=== PATIENT | male | born 1975 | race Caucasian/White ===

== ENCOUNTER 2016-10-02 21:40 | Inpatient (IN) | payer MEDICARE ==
[~2016-10-02] VITALS: Ht 175.3 cm; Wt 90.0 kg
[2016-10-02 21:46] VITALS: PULSE 77; RESP 18; TEMP 98.8; O2SAT 98
[2016-10-02 21:51] VITALS: BP 118/65; PULSE 78; RESP 18; TEMP 98.7; O2SAT 97
[2016-10-02] MEDS ORDERED: LOSA100T PO (22:00)
--- NOTE | 2016-10-02 22:26 | PD ---
HPI Chief Complaint: Syncope/Near-Syncope Time Seen by Provider: 22:07 Travel History International Travel<30 days: No Contact w/Intl Traveler<30days: No Traveled to known affect area: No History of Present Illness HPI 41-year-old male here for evaluation of posterior head pain, neck pain, left elbow pain after syncopal episode. Patient apparently returned home from grocery shopping with his when he sat down on his coffee table. He then began to see black spots in his vision and became dizzy, and the next thing he knew he was being woken up on the floor. This was witnessed by his who states that when he woke up he had some slurred speech which has since resolved. Patient has history of bicuspid aortic valve with aortic stenosis and aortic regurgitation which according to the patient was mild in March 2016 on echo. He apparently has had 3 other episodes of passing out this month. He is not complaining of posterior head pain, neck, back pain, and left elbow pain. Pain is constant, moderate, worse with movements. No chest pain or dyspnea. No known history of CAD. No history of DVT or PE. No dyspnea. No abdominal pain. PFSH Past Medical History Cardiovascular Problems: Yes (BICUSPID AORTIC VALVE REGURG) Hypertension: Yes Medical other: Yes (RIGHT HAND TREMMOR PT STATES ) Tetanus Vaccination: < 5 Years Influenza Vaccination: No Past Surgical History Other Surgery: Yes (CARPAL TUNNEL RIGHT WRIST, LIPOMA REMOVED) Social History Alcohol Use: No Tobacco Use: No Substance Use: No Allergies-Medications (Allergen,Severity, Reaction): Coded Allergies: Latex (Verified Allergy, Intermediate, 10/02/16) Reported Meds & Prescriptions Reported Meds & Active Scripts Active Reported Losartan (Losartan Potassium) 100 Mg Tab 100 Mg PO DAILY Review of Systems Except as stated in HPI: all other systems reviewed are Neg Physical Exam Narrative GENERAL: Well-developed, well-nourished, awake, alert, GCS 15, no acute distress. Resting tremor in RUE which the patient reports is intermittent for him. SKIN: Focused skin assessment warm/dry. No lacerations, abrasions, or ecchymosis. HEAD: Atraumatic. Normocephalic. EYES: Pupils equal and round. No scleral icterus. No injection or drainage. ENT: Mucous membranes pink and moist. NECK: Trachea midline. No JVD. In cervical collar. There is midline cervical spine tenderness without step-off. CARDIOVASCULAR: Regular rate and rhythm. Distal pulses brisk and equal bilaterally. RESPIRATORY: No accessory muscle use. Clear to auscultation. Breath sounds equal bilaterally. GASTROINTESTINAL: Abdomen soft, non-tender, nondistended. MUSCULOSKELETAL: No obvious deformities. No clubbing. No cyanosis. No edema. Midline thoracic spine and lumbar spine tenderness without step-off. Left elbow with posterior tenderness with mild edema without obvious bony deformity. NEUROLOGICAL: Awake and alert. No obvious cranial nerve deficits. Motor grossly within normal limits. Normal speech. No focal deficits. Normal strength in all four extremities. PSYCHIATRIC: Appropriate mood and affect; insight and judgment normal. Data Data Last Documented VS Vital Signs Date Time Temp Pulse Resp B/P Pulse Ox O2 Delivery O2 Flow Rate FiO2 10/02/16 23:01 100 Room Air 10/02/16 21:51 20 18 10/02/16 21:51 98.7 118/65 Orders Complete Blood Count With Diff (10/02/16 22:17) Comprehensive Metabolic Panel (10/02/16 22:17) Magnesium (Mg) (10/02/16 22:17) Ckmb (Isoenzyme) Profile (10/02/16 22:17) Troponin I (10/02/16 22:17) Act Partial Throm Time (Ptt) (10/02/16 22:17) Prothrombin Time / Inr (Pt) (10/02/16 22:17) Urinalysis - C+S If Indicated (10/02/16 22:17) Chest, Single Ap (10/02/16 22:17) Ct Brain W/O Iv Contrast(Rout) (10/02/16 22:17) Ct Cerv Spine W/O Contrast (10/02/16 22:17) Ecg Monitoring (10/02/16 22:17) Iv Access Insert/Monitor (10/02/16 22:17) Oximetry (10/02/16 22:17) Sodium Chloride 0.9% Flush (Ns Flush) (10/02/16 22:30) Ct Thor Spine W/O Contrast (10/02/16 ) Ct Lumb Spine W/O Contrast (10/02/16 ) Elbow, Complete (4 Vws) (10/02/16 ) CKMB (10/02/16 23:11) CKMB% (10/02/16 23:11) Acetamin-Hydrocod 325-5 Mg (Burson 5-325 (10/03/16 00:00) Metoclopramide Inj (Reglan Inj) (10/03/16 00:00) Sodium Chlor 0.9% 1000 Ml Inj (Ns 1000 M (10/03/16 00:00) Place In Observation (10/02/16 ) Vital Signs (Adult) Q4H (10/02/16 23:56) Neuro Checks Q4H (10/02/16 23:56) Activity Oob With Assistance (10/02/16 23:56) Care Connector / Telemetry .CONTINUOUS (10/02/16 23:56) Intake + Output SURINDER.QSHIFT (10/02/16 23:56) Diet Regular Basic (10/03/16 Breakfast) Sodium Chlor 0.9% 1000 Ml Inj (Ns 1000 M (10/02/16 23:56) Sodium Chloride 0.9% Flush (Ns Flush) (10/03/16 00:00) Sodium Chloride 0.9% Flush (Ns Flush) (10/03/16 09:00) Acetaminophen (Tylenol) (10/03/16 00:00) Ondansetron Inj (Zofran Inj) (10/03/16 00:00) Comprehensive Metabolic Panel (10/03/16 06:00) Complete Blood Count With Diff (10/03/16 06:00) Creatine Kinase (Cpk) (10/02/16 23:56) Creatine Kinase (Cpk) (10/03/16 05:56) Troponin I (10/02/16 23:56) Troponin I (10/03/16 05:56) Resp Oxygen Iglesia C Titrat 1-4 L (10/02/16 ) Pt Request For Service (10/02/16 23:56) Case Management Consult (10/02/16 23:56) Enoxaparin Inj (Lovenox Inj) (10/03/16 00:00) Scd Bilateral/Knee High SURINDER.BID (10/02/16 23:56) Tuan Bilateral/Knee High SURINDER.QSHIFT (10/02/16 23:56) Docusate Sodium-Senna (Yazmin-Colace) (10/03/16 09:00) Magnesium Hydroxide Liq (Milk Of Magnesi (10/03/16 00:00) Sennosides (Senokot) (10/03/16 00:00) Bisacodyl Supp (Dulcolax Supp) (10/03/16 00:00) Lactulose Liq (Lactulose Liq) (10/03/16 00:00) Acetamin-Hydrocod 325-5 Mg (Burson 5-325 (10/03/16 00:00) Potassium Chloride (Kcl) (10/03/16 00:00) Magnesium (Mg) (10/02/16 23:56) Magnesium Oxide (Mag-Ox) (10/03/16 00:00) Echo 2d Comp With Doppler (10/03/16 ) Us Carotid Arteries Comp Bilat (10/03/16 ) Holter Monitor Recording (10/03/16 ) Labs Laboratory Tests Test 10/02/16 10/02/16 23:11 23:40 White Blood Count 9.3 TH/MM3 Red Blood Count 4.64 MIL/MM3 Hemoglobin 13.5 GM/DL Hematocrit 39.6 % Mean Corpuscular Volume 85.4 FL Mean Corpuscular Hemoglobin 29.1 PG Mean Corpuscular Hemoglobin 34.1 % Concent Red Cell Distribution Width 12.6 % Platelet Count 229 TH/MM3 Mean Platelet Volume 9.5 FL Neutrophils (%) (Auto) 64.1 % Lymphocytes (%) (Auto) 27.1 % Monocytes (%) (Auto) 6.0 % Eosinophils (%) (Auto) 1.9 % Basophils (%) (Auto) 0.9 % Neutrophils # (Auto) 6.0 TH/MM3 Lymphocytes # (Auto) 2.5 TH/MM3 Monocytes # (Auto) 0.6 TH/MM3 Eosinophils # (Auto) 0.2 TH/MM3 Basophils # (Auto) 0.1 TH/MM3 CBC Comment DIFF FINAL Differential Comment Prothrombin Time 10.8 SEC Prothromb Time International 1.0 RATIO Ratio Activated Partial 26.4 SEC Thromboplast Time Sodium Level 140 MEQ/L Potassium Level 3.4 MEQ/L Chloride Level 106 MEQ/L Carbon Dioxide Level 24.6 MEQ/L Anion Gap 9 MEQ/L Blood Urea Nitrogen 16 MG/DL Creatinine 1.32 MG/DL Estimat Glomerular Filtration 59 ML/MIN Rate Random Glucose 92 MG/DL Calcium Level 9.2 MG/DL Magnesium Level 2.0 MG/DL Total Bilirubin 0.8 MG/DL Aspartate Amino Transf 19 U/L (AST/SGOT) Alanine Aminotransferase 35 U/L (ALT/SGPT) Alkaline Phosphatase 62 U/L Total Creatine Kinase 172 U/L Creatine Kinase MB 1.3 NG/ML Troponin I 0.05 NG/ML Total Protein 7.0 GM/DL Albumin 4.0 GM/DL Urine Color YELLOW Urine Turbidity CLEAR Urine pH 5.5 Urine Specific Barrow 1.012 Urine Protein NEG mg/dL Urine Glucose (UA) NEG mg/dL Urine Ketones NEG mg/dL Urine Occult Blood NEG Urine Nitrite NEG Urine Bilirubin NEG Urine Urobilinogen LESS THAN 2.0 MG/DL Urine Leukocyte Esterase NEG Urine RBC LESS THAN 1 /hpf Urine WBC 1 /hpf Urine Hyaline Casts 1 /lpf Urine Mucus FEW /lpf Microscopic Urinalysis Comment CULT NOT INDICATED MDM Medical Decision Making Medical Screen Exam Complete: Yes Emergency Medical Condition: Yes Interpretation(s) EKG: Sinus, rate 77, leftward axis, normal intervals, no acute ischemic abnormality. Differential Diagnosis Syncope, dysrhythmia, intracranial trauma, vertebral injury, left elbow fracture versus dislocation versus contusion, metabolic abnormality, anemia, aortic stenosis Narrative Course Initial vital signs show heart rate 78, blood pressure 118/65, pulse ox 97% on room air, oral temp of 98.7F. When the patient arrived to the emergency department, the patient's thought that the patient needed to receive TPA. I discussed with the patient and the patient's indications for this medication. The patient is not displaying any signs of stroke at time of my assessment. With this and with head trauma, he is a very poor candidate for TPA. CBC is unremarkable. CMP Cardiac enzymes CT head: CONCLUSION: 1. No acute findings in the brain. 2. Rounded opacity in the superior right maxillary sinus could be related to sinus disease, however since this is adjacent to the infraorbital region, and correlation clinical history to see whether the patient is at risk of an orbital floor fracture. If so, then further assessment with CT orbits to include coronal images may be helpful. Patient has no facial pain and has no tenderness on exam. Extraocular movements are intact. CT cervical spine: CONCLUSION: Negative CT cervical spine. CT thoracic spine: CONCLUSION: Slight degenerative change without any significant compromise to the thecal sac or the exiting nerve roots. CT lumbar spine: CONCLUSION: Slight degenerative changes and bulging discs without any significant compromise to the thecal sac or the exiting nerve roots. Left elbow: No evidence of recent bony injury. Chest x-ray: The lungs are clear. Patient and the patient's were made aware of all findings. He has reportedly had 3 other syncopal episodes this month. Given history of bicuspid aortic valve with mild stenosis and regurgitation, as well as frequent syncopal episodes, the patient will be admitted for overnight observation for further syncope workup. Case discussed with hospitalist Dr. Grimaldo who will admit the patient to her service. Diagnosis Primary Impression: Syncope Qualified Code: R55 - Syncope, unspecified syncope type Admitting Information Admitting Physician Requests: Observation Montez Robledo MD Oct 02, 2016 22:26
[2016-10-02] MEDS ORDERED: SODIUM CHLORIDE 0.9% FLUSH 10 ML FLUSH IVF PRN (22:30)
--- NOTE | 2016-10-02 22:56 | RADRPT ---
EXAM DATE/TIME: 10/02/2016 22:30 [facility] COMPARISON: No previous studies available for comparison. INDICATIONS : Chest pain. MEDICAL HISTORY : None. SURGICAL HISTORY : None. ENCOUNTER: Initial ACUITY: 1 day PAIN SCORE: 0/10 LOCATION: Bilateral chest FINDINGS: A single view of the chest demonstrates the lungs to be symmetrically aerated without evidence of mas s, infiltrate or effusion. The cardiomediastinal contours are unremarkable. Osseous structures are intact. CONCLUSION: The lungs are clear. González Oden MD on October 02, 2016 at 22:53 Board Certified Radiologist. This report was verified electronically.
--- NOTE | 2016-10-02 22:57 | RADRPT ---
EXAM DATE/TIME: 10/02/2016 22:37 [facility] COMPARISON: No previous studies available for comparison. INDICATIONS : Left elbow pain from fall. MEDICAL HISTORY : None. SURGICAL HISTORY : None. ENCOUNTER: Initial ACUITY: 1 day PAIN SCORE: 0/10 LOCATION: Left elbow FINDINGS: Multiple view examination of the left elbow demonstrates no soft tissue swelling, joint effusion, or fracture. The osseous structures are in normal alignment. Bony mineralization is normal. CONCLUSION: No evidence of recent bony injury. González Oden MD on October 02, 2016 at 22:54 Board Certified Radiologist. This report was verified electronically.
--- NOTE | 2016-10-02 23:00 | RADRPT ---
EXAM DATE/TIME: 10/02/2016 22:47 [facility] COMPARISON: No previous studies available for comparison. INDICATIONS : Trauma, syncopal episode and fall. RADIATION DOSE: 56.35 CTDIvol (mGy) MEDICAL HISTORY : Hypertension. Leaky heart valve. SURGICAL HISTORY : None. ENCOUNTER: Initial ACUITY: 1 day PAIN SCALE: 5/10 LOCATION: occipital TECHNIQUE: Multiple contiguous axial images were obtained of the head. Using automated exposure control and adj ustment of the mA and/or kV according to patient size, radiation dose was kept as low as reasonably a chievable to obtain optimal diagnostic quality images. FINDINGS: CEREBRUM: The ventricles are normal for age. No evidence of midline shift, mass lesion, hemorrhage or acute in farction. No extra-axial fluid collections are seen. POSTERIOR FOSSA: The cerebellum and brainstem are intact. The 4th ventricle is midline. The cerebellopontine angle i s unremarkable. EXTRACRANIAL: There is a rounded soft tissue density measuring 1 cm in the superior right maxillary sinus. There i s also mild mucosal thickening inferior right maxillary sinus. SKULL: The calvaria is intact. No evidence of skull fracture. CONCLUSION: 1. No acute findings in the brain. 2. Rounded opacity in the superior right maxillary sinus could be related to sinus disease, however s lorenzo this is adjacent to the infraorbital region, and correlation clinical history to see whether the patient is at risk of an orbital floor fracture. If so, then further assessment with CT orbits to i nclude coronal images may be helpful. González Oden MD on October 02, 2016 at 22:55 Board Certified Radiologist. This report was verified electronically.
[2016-10-02 23:01] VITALS: O2SAT 100
--- NOTE | 2016-10-02 23:08 | RADRPT ---
EXAM DATE/TIME: 10/02/2016 22:47 [facility] COMPARISON: No previous studies available for comparison. INDICATIONS : Trauma, syncopal episode and fall. RADIATION DOSE: 32.45 CTDIvol (mGy) MEDICAL HISTORY : Hypertension. Leaky heart valve. SURGICAL HISTORY : None. ENCOUNTER: Initial ACUITY: 1 day PAIN SCALE: 2/10 LOCATION: neck TECHNIQUE: Volumetric scanning of the cervical spine was performed. Multiplanar reconstructions in the sagittal, coronal and oblique axial planes were performed. Using automated exposure control and adjustment o f the mA and/or kV according to patient size, radiation dose was kept as low as reasonably achievable to obtain optimal diagnostic quality images. FINDINGS: There is normal alignment of the vertebral bodies of the cervical spine preservation of vertebral bod y height. The atlantoaxial articulation is intact. The posterior elements are normal alignment with out evidence of locked or perched facets. The spinous processes are intact. C2-C3: No fracture seen. The bony neural foramen are patent. C3-C4: No fracture seen. The bony neural foramen are patent. C4-C5: No fracture seen. The bony neural foramen are patent. C5-C6: No fracture seen. The bony neural foramen are patent. C6-C7: No fracture seen. The bony neural foramen are patent. C7-T1: No fracture seen. The bony neural foramen are patent. CONCLUSION: Negative CT cervical spine. González Oden MD on October 02, 2016 at 23:04 Board Certified Radiologist. This report was verified electronically.
[2016-10-02 23:20] LABS: BASOPHIL # 0.1 TH/MM3 (0-0.2); BASOPHIL % 0.9 % (0.0-2.0); EOSINOPHIL # 0.2 TH/MM3 (0-0.4); EOSINOPHIL % 1.9 % (0.0-4.0); HEMATOCRIT 39.6 % (39.0-51.0); HEMO FLAGS DIFF FINAL; LYMPH % 27.1 % (9.0-44.0); LYMPHOCYTE # 2.5 TH/MM3 (1.0-4.8); MEAN CELL VOLUME 85.4 FL (80.0-100.0); MEAN CORPUSCULAR HEMOGLOBIN 29.1 PG (27.0-34.0); MEAN CORPUSCULAR HGB CONC 34.1 % (32.0-36.0); NEUT % 64.1 % (16.0-70.0); PLATELET COUNT 229 TH/MM3 (150-450); RED BLOOD COUNT 4.64 MIL/MM3 (4.50-5.90); RED CELL DISTRIBUTION WIDTH 12.6 % (11.6-17.2); WHITE BLOOD COUNT 9.3 TH/MM3 (4.0-11.0)
--- NOTE | 2016-10-02 23:29 | RADRPT ---
EXAM DATE/TIME: 10/02/2016 22:54 [facility] COMPARISON: CT CERVICAL SPINE W/O CONTRAST, October 02, 2016, 22:47. INDICATIONS : Trauma, syncopal episode and fall. RADIATION DOSE: 24.07 CTDIvol (mGy) ; Combined studies - Thoracic Spine/Lumbar Spine MEDICAL HISTORY : Hypertension. Leaky heart valve. SURGICAL HISTORY : None. ENCOUNTER: Initial ACUITY: 1 day PAIN SCALE: 2/10 LOCATION: lumbar TECHNIQUE: Volumetric scanning of the lumbar spine was performed. Multiplanar reconstructions in the sagittal, coronal and oblique axial planes were performed. Using automated exposure control and adjustment of the mA and/or kV according to patient size, radiation dose was kept as low as reasonably achievable t o obtain optimal diagnostic quality images. FINDINGS: No significant compression deformities, spondylolysis, or spondylolisthesis is seen. The discs spaces are well maintained. L1-L2: No appreciable compromise to the thecal sac, or the exiting nerve roots is seen. The neural foramina and lateral recesses are patent bilaterally. L2-L3: No appreciable compromise to the thecal sac, or the exiting nerve roots is seen. The neural foramina and lateral recesses are patent bilaterally L3-L4: No appreciable compromise to the thecal sac, or the exiting nerve roots is seen. The neural foramina and lateral recesses are patent bilaterally L4-L5: No appreciable compromise to the thecal sac, or the exiting nerve roots is seen. The neura l foramina and lateral recesses are patent bilaterally. Slight bulging disc is present centrally. No significant compromise to the thecal sac or the exiting nerve roots are seen. L5-S1: Slight bulging disc and hypertrophic changes are seen with indentation on the thecal sac an d no significant compromise to the thecal sac or the exiting nerve roots. CONCLUSION: Slight degenerative changes and bulging discs without any significant compromise to t he thecal sac or the exiting nerve roots. Matthew Smith MD on October 02, 2016 at 23:23 Board Certified Radiologist. This report was verified electronically.
--- NOTE | 2016-10-02 23:33 | RADRPT ---
EXAM DATE/TIME: 10/02/2016 22:52 [facility] COMPARISON: No previous studies available for comparison. INDICATIONS : Trauma, syncopal episode and fall. RADIATION DOSE: 24.07 CTDIvol (mGy) ; Combined studies - Thoracic Spine/Lumbar Spine MEDICAL HISTORY : Hypertension. Leaky heart valve. SURGICAL HISTORY : None. ENCOUNTER: Initial ACUITY: 1 day PAIN SCALE: 2/10 LOCATION: thoracic TECHNIQUE: Volumetric scanning of the thoracic spine was performed. Multiplanar reconstructions in the sagittal , coronal and oblique axial planes were performed. Using automated exposure control and adjustment o f the mA and/or kV according to patient size, radiation dose was kept as low as reasonably achievable to obtain optimal diagnostic quality images. FINDINGS: No significant compression deformities are seen. Disc spaces are grossly intact and not significantl y narrowed. Slight degenerative changes are seen within the disc space and facets mainly in the lower thoracic spine worse at T10-11 and T11-12. T1-T2: No appreciable compromise to the thecal sac, spinal cord, or the exiting nerve roots are seen. The neural foramina are grossly patent bilaterally. T2-T3: No appreciable compromise to the thecal sac, spinal cord, or the exiting nerve roots are seen. The neural foramina are grossly patent bilaterally. T3-T4: No appreciable compromise to the thecal sac, spinal cord, or the exiting nerve roots are seen. The neural foramina are grossly patent bilaterally. T4-T5: No appreciable compromise to the thecal sac, spinal cord, or the exiting nerve roots are seen. The neural foramina are grossly patent bilaterally. T5-T6: No appreciable compromise to the thecal sac, spinal cord, or the exiting nerve roots are seen. The neural foramina are grossly patent bilaterally. T6-T7: No appreciable compromise to the thecal sac, spinal cord, or the exiting nerve roots are seen. The neural foramina are grossly patent bilaterally. T7-T8: No appreciable compromise to the thecal sac, spinal cord, or the exiting nerve roots are seen. The neural foramina are grossly patent bilaterally. T8-T9: No appreciable compromise to the thecal sac, spinal cord, or the exiting nerve roots are seen. The neural foramina are grossly patent bilaterally. T9-T10: No appreciable compromise to the thecal sac, spinal cord, or the exiting nerve roots are see n. The neural foramina are grossly patent bilaterally. T10-T11: No appreciable compromise to the thecal sac, spinal cord, or the exiting nerve roots are se en. The neural foramina are grossly patent bilaterally. T11-T12: No appreciable compromise to the thecal sac, spinal cord, or the exiting nerve roots are se en. The neural foramina are grossly patent bilaterally. T12-L1: No appreciable compromise to the thecal sac, spinal cord, or the exiting nerve roots are s een. The neural foramina are grossly patent bilaterally. CONCLUSION: Slight degenerative change without any significant compromise to the thecal sac or th e exiting nerve roots. Matthew Smith MD on October 02, 2016 at 23:28 Board Certified Radiologist. This report was verified electronically.
[2016-10-02 23:41] LABS: APTT (PATIENT) 26.4 SEC (24.3-30.1); PROTHROMBIN TIME - PATIENT 10.8 SEC (9.8-11.6)
[2016-10-02 23:45] LABS: ALT (GPT) 35 U/L (12-78); ANION GAP 9 MEQ/L (5-15); AST (GOT) 19 U/L (15-37); BICARBONATE 24.6 MEQ/L (21.0-32.0); BLOOD UREA NITROGEN 16 MG/DL (7-18); CHLORIDE 106 MEQ/L (98-107); GLOMERULAR FILTRATION RATE 59 ML/MIN (>89); POTASSIUM 3.4 MEQ/L (3.5-5.1); SODIUM (NA) 140 MEQ/L (136-145)
[2016-10-02 23:50] LABS: ALKALINE PHOSPHATASE 62 U/L (45-117); CREATINE KINASE 172 U/L (39-308); TOTAL BILIRUBIN ADULT 0.8 MG/DL (0.2-1.0)
[2016-10-02 23:58] LABS: BLOOD, URINE NEG (NEG); COMMENT (UR) CULT NOT INDICATED; CULTURE IF INDICATED CULT NOT INDICATED; GLUCOSE,URINE NEG (NEG); HYALINE CAST, URINE 1 /lpf (RARE); KETONE, URINE NEG (NEG); MUCUS URINE FEW /lpf (OCC); NITRITE,URINE NEG (NEG); PH, URINE 5.5 (5.0-8.5); URINE COLOR YELLOW (YELLW/STRAW)
[2016-10-03] VITALS (10 sets, daily range): BP systolic 112–134; BP diastolic 68–88; PULSE 60–79; RESP 18–22; TEMP 97.6–98.5; O2SAT 96–98
[2016-10-03] MEDS ORDERED: METOCLOPRAMIDE HCL 10 MG/2 ML VIAL IV PUSH ONE
[2016-10-03] MEDS ORDERED: MAGNESIUM HYDROXIDE SUSP 30 ML CUP PO PRN
[2016-10-03] MEDS ORDERED: BISACODYL 10 MG SUPP RECTAL PRN
[2016-10-03] MEDS ORDERED: LACTULOSE SYRUP 20 GM/30 ML CUP PO PRN
[2016-10-03] MEDS ORDERED: ENOXAPARIN SODIUM 40 MG/0.4 ML SYRINGE SQ SCH
[2016-10-03] MEDS ORDERED: ONDANSETRON HCL 4 MG/2 ML VIAL IVP PRN
[2016-10-03] MEDS ORDERED: SODIUM CHLORIDE 0.9% FLUSH 10 ML FLUSH IV FLUSH PRN
[2016-10-03] MEDS ORDERED: SODIUM CHLOR 0.9% 1000 ML INJ 1,000 ML IV ONE
[2016-10-03] MEDS ORDERED: ACETAMINOPHEN 325 MG TAB PO PRN
[2016-10-03] MEDS ORDERED: MAGNESIUM OXIDE 400 MG TAB PO ONE
[2016-10-03] MEDS ORDERED: POTASSIUM CHLORIDE 10 MEQ CONTROLLED RELEASE TAB PO ONE
[2016-10-03] MEDS ORDERED: SENNOSIDES 8.6 MG TAB PO PRN
[2016-10-03 00:02] LABS: CKMB 1.3 NG/ML (0.5-3.6)
[2016-10-03] MEDS: SODIUM CHLOR 0.9% 1000 ML INJ 1,000 ML IV SCH ×3 (00:39→19:37)
--- NOTE | 2016-10-03 01:03 | RADRPT ---
EXAM DATE/TIME: 10/03/2016 00:39 [facility] COMPARISON: No previous studies available for comparison. INDICATIONS : Syncope. MEDICAL HISTORY : Hypertension. Bicuspid aortic valve regurg. Right hand tremmor. SURGICAL HISTORY : Right carpel tunnel release. Lipoma removed. ENCOUNTER: Initial ACUITY: > 1 year PAIN SCORE: 0/10 LOCATION: Bilateral neck PEAK SYSTOLIC VELOCITIES (cm/sec): ICA/CCA RATIO: Right: 0.8 Left: 0.8 ICA: Right: 60 Left: 73 CCA: Right: 75 Left: 87 ECA: Right: 80 Left: 76 VERTEBRAL: Right: 44 antegrade Left: 48 antegrade Elevated flow velocities and ICA/CCA ratios have been found to correlate with increased degrees of vessel stenosis, calculated as percentage of diameter relative to a normal segment of distal ICA/CCA FINDINGS: RIGHT CAROTID: No significant stenosis is visualized. The waveforms are within normal limits. LEFT CAROTID: No significant stenosis is visualized. The waveforms are within normal limits. VERTEBRAL ARTERIES: Antegrade flow is seen in both vertebral arteries. MISCELLANEOUS: None. CONCLUSION: Normal examination. Matthew Smith MD on October 03, 2016 at 1:01 Board Certified Radiologist. This report was verified electronically.
[2016-10-03] MEDS: ACETAMINOPHEN/HYDROcodone 325 MG/5 MG TAB PO PRN ×3 (05:19→18:03)
[2016-10-03 05:46] LABS: AUTOMATED NEUTROPHIL # 3.4 TH/MM3 (1.8-7.7); BASOPHIL # 0.1 TH/MM3 (0-0.2); BASOPHIL % 1.1 % (0.0-2.0); EOSINOPHIL # 0.2 TH/MM3 (0-0.4); EOSINOPHIL % 3.3 % (0.0-4.0); HEMO FLAGS DIFF FINAL; LYMPHOCYTE # 2.3 TH/MM3 (1.0-4.8); MEAN CELL VOLUME 85.3 FL (80.0-100.0); MEAN CORPUSCULAR HEMOGLOBIN 29.5 PG (27.0-34.0); MEAN CORPUSCULAR HGB CONC 34.5 % (32.0-36.0); NEUT % 52.6 % (16.0-70.0); PLATELET COUNT 215 TH/MM3 (150-450); RED BLOOD COUNT 4.22 MIL/MM3 (4.50-5.90); RED CELL DISTRIBUTION WIDTH 12.5 % (11.6-17.2); WHITE BLOOD COUNT 6.5 TH/MM3 (4.0-11.0)
--- NOTE | 2016-10-03 06:15 | HHI.HP ---
[facility] Bryant Kimbrough MD Admission Diagnosis syncope Diagnoses: Chief Complaint: dizziness Travel History International Travel<30 Days: No Contact w/Intl Traveler <30 Da: No Traveled to Known Affected Are: No History of Present Illness The patient is a 41-year-old male here for evaluation of posterior head pain, neck pain, left elbow pain after syncopal episode. Patient apparently returned home from grocery shopping with his when he sat down on his coffee table. He then began to see black spots in his vision and became dizzy, and the next thing he knew he was being woken up on the floor. This was witnessed by his who states that when he woke up he had some slurred speech which has since resolved. Patient has a history of bicuspid aortic valve with aortic stenosis and aortic regurgitation which according to the patient was mild in March 2016 on ECHO. He apparently has had 3 other episodes of passing out this month. He is not complaining of posterior head pain, neck, back pain, and left elbow pain. Pain is constant, moderate, worse with movements. No chest pain. Patient reports sob especially getting worse over the past month , associated fatigue for the past month. He also says he feels palpitations at times. No known history of CAD. No history of DVT or PE. No abdominal pain. Review of Systems Except as stated in HPI: all other systems reviewed are Neg Past Family Social History Past Medical History Bicuspid aortic valve with aortic stenosis and aortic regurgitation. Right hand tremor. Past Surgical History Carpal tunel right wrist surgery Lipoma removal Reported Medications Last Impressions Carotid Artery Ultrasound 10/03/16 0000 Signed Impressions: Service Date/Time: Monday, October 03, 2016 00:39 - CONCLUSION: Normal examination. Matthew Smith MD Head CT 10/02/16 2217 Signed Impressions: Service Date/Time: Sunday, October 02, 2016 22:47 - CONCLUSION: 1. No acute findings in the brain. 2. Rounded opacity in the superior right maxillary sinus could be related to sinus disease, however since this is adjacent to the infraorbital region, and correlation clinical history to see whether the patient is at risk of an orbital floor fracture. If so, then further assessment with CT orbits to include coronal images may be helpful. González Oden MD Chest X-Ray 10/02/162216 Signed Impressions: Service Date/Time: Sunday, October 02, 2016 22:30 - CONCLUSION: The lungs are clear. González Oden MD Cervical Spine CT 10/02/162216 Signed Impressions: Service Date/Time: Sunday, October 02, 2016 22:47 - CONCLUSION: Negative CT cervical spine. González Oden MD Thoracic Spine CT 10/02/16 0000 Signed Impressions: Service Date/Time: Sunday, October 02, 2016 22:52 - CONCLUSION: Slight degenerative change without any significant compromise to the thecal sac or the exiting nerve roots. Matthew Smith MD Lumbar Spine CT 10/02/16 0000 Signed Impressions: Service Date/Time: Sunday, October 02, 2016 22:54 - CONCLUSION: Slight degenerative changes and bulging discs without any significant compromise to the thecal sac or the exiting nerve roots. Matthew Smith MD Elbow X-Ray 10/02/16 0000 Signed Impressions: Service Date/Time: Sunday, October 02, 2016 22:37 - CONCLUSION: No evidence of recent bony injury. González Oden MD Allergies: Coded Allergies: Latex (Verified Allergy, Intermediate, 10/02/16) Family History Father with DM, cardiac problems Uncles from father side with CAD, heart disease Grandmother CHF Social History Denies EtOH use, tobacco use or illicit drug use Physical Exam Vital Signs Vital Signs Date Time Temp Pulse Resp B/P Pulse Ox O2 Delivery O2 Flow Rate FiO2 10/03/16 03:12 98.5 65 22 112/68 98 10/03/16 02:39 60 10/03/16 00:06 97 21 10/02/16 23:01 100 Room Air 10/02/16 21:51 20 18 97 Room Air 10/02/16 21:51 98.7 78 18 118/65 97 Room Air 10/02/16 21:46 98.8 77 18 98 Physical Exam GENERAL: This is a well-nourished, well-developed patient, in no apparent distress. SKIN: No rashes, ecchymoses or lesions. Cool and dry. HEAD: Atraumatic. Normocephalic. No temporal or scalp tenderness. EYES: Pupils equal round and reactive. Extraocular motions intact. No scleral icterus. No injection or drainage. ENT: Nose without bleeding, purulent drainage or septal hematoma. Throat without erythema, tonsillar hypertrophy or exudate. Uvula midline. Airway patent. NECK: Trachea midline. No JVD or lymphadenopathy. Supple, nontender, no meningeal signs. CARDIOVASCULAR: Regular rate and rhythm without murmurs, gallops, or rubs. RESPIRATORY: Clear to auscultation. Breath sounds equal bilaterally. No wheezes , rales, or rhonchi. GASTROINTESTINAL: Abdomen soft, non-tender, nondistended. No hepato-splenomegaly , or palpable masses. No guarding. MUSCULOSKELETAL: Extremities without clubbing, cyanosis, or edema. No joint tenderness, effusion, or edema noted. No calf tenderness. Negative Homans sign bilaterally. NEUROLOGICAL: Awake and alert. Cranial nerves II through XII intact. Motor and sensory grossly within normal limits. Five out of 5 muscle strength in all muscle groups. Normal speech. Laboratory Laboratory Tests Test 10/02/16 10/02/16 10/03/16 23:11 23:40 05:07 White Blood Count 9.3 6.5 Red Blood Count 4.64 4.22 Hemoglobin 13.5 12.4 Hematocrit 39.6 36.0 Mean Corpuscular Volume 85.4 85.3 Mean Corpuscular Hemoglobin 29.1 29.5 Mean Corpuscular Hemoglobin 34.1 34.5 Concent Red Cell Distribution Width 12.6 12.5 Platelet Count 229 215 Mean Platelet Volume 9.5 9.9 Neutrophils (%) (Auto) 64.1 52.6 Lymphocytes (%) (Auto) 27.1 35.0 Monocytes (%) (Auto) 6.0 8.0 Eosinophils (%) (Auto) 1.9 3.3 Basophils (%) (Auto) 0.9 1.1 Neutrophils # (Auto) 6.0 3.4 Lymphocytes # (Auto) 2.5 2.3 Monocytes # (Auto) 0.6 0.5 Eosinophils # (Auto) 0.2 0.2 Basophils # (Auto) 0.1 0.1 CBC Comment DIFF FINAL DIFF FINAL Differential Comment Prothrombin Time 10.8 Prothromb Time International 1.0 Ratio Activated Partial 26.4 Thromboplast Time Sodium Level 140 Potassium Level 3.4 Chloride Level 106 Carbon Dioxide Level 24.6 Anion Gap 9 Blood Urea Nitrogen 16 Creatinine 1.32 Estimat Glomerular Filtration 59 Rate Random Glucose 92 Calcium Level 9.2 Magnesium Level 2.0 Total Bilirubin 0.8 Aspartate Amino Transf 19 (AST/SGOT) Alanine Aminotransferase 35 (ALT/SGPT) Alkaline Phosphatase 62 Total Creatine Kinase 172 Creatine Kinase MB 1.3 Troponin I 0.05 Total Protein 7.0 Albumin 4.0 Urine Color YELLOW Urine Turbidity CLEAR Urine pH 5.5 Urine Specific Benedict 1.012 Urine Protein NEG Urine Glucose (UA) NEG Urine Ketones NEG Urine Occult Blood NEG Urine Nitrite NEG Urine Bilirubin NEG Urine Urobilinogen LESS THAN 2.0 Urine Leukocyte Esterase NEG Urine RBC LESS THAN 1 Urine WBC 1 Urine Hyaline Casts 1 Urine Mucus FEW Microscopic Urinalysis Comment CULT NOT INDICATED Result Diagram: 10/03/16 0507 10/02/16 2311 Imaging Last Impressions Carotid Artery Ultrasound 10/03/16 0000 Signed Impressions: Service Date/Time: Monday, October 03, 2016 00:39 - CONCLUSION: Normal examination. Matthew Smith MD Head CT 10/02/162216 Signed Impressions: Service Date/Time: Sunday, October 02, 2016 22:47 - CONCLUSION: 1. No acute findings in the brain. 2. Rounded opacity in the superior right maxillary sinus could be related to sinus disease, however since this is adjacent to the infraorbital region, and correlation clinical history to see whether the patient is at risk of an orbital floor fracture. If so, then further assessment with CT orbits to include coronal images may be helpful. González Oden MD Chest X-Ray 10/02/162216 Signed Impressions: Service Date/Time: Sunday, October 02, 2016 22:30 - CONCLUSION: The lungs are clear. González Oden MD Cervical Spine CT 10/02/162216 Signed Impressions: Service Date/Time: Sunday, October 02, 2016 22:47 - CONCLUSION: Negative CT cervical spine. González Oden MD Thoracic Spine CT 10/02/16 0000 Signed Impressions: Service Date/Time: Sunday, October 02, 2016 22:52 - CONCLUSION: Slight degenerative change without any significant compromise to the thecal sac or the exiting nerve roots. Matthew Smith MD Lumbar Spine CT 10/02/16 0000 Signed Impressions: Service Date/Time: Sunday, October 02, 2016 22:54 - CONCLUSION: Slight degenerative changes and bulging discs without any significant compromise to the thecal sac or the exiting nerve roots. Matthew Smith MD Elbow X-Ray 10/02/16 0000 Signed Impressions: Service Date/Time: Sunday, October 02, 2016 22:37 - CONCLUSION: No evidence of recent bony injury. González Oden MD Assessment and Plan Assessment and Plan Syncope and fall H/o Bicuspid aortic valve with aortic stenosis and aortic regurgitation. Right hand tremor. Thoracic and lumbar spine with DJD RENZO, unknown Cr baseline Hypokalemia, mild. K Replaced. Monitor and replace Admit inpatient Imaging in the ED reviewed and findings discussed with Dr Robledo ED physician: CT head rounded opacity in the superior right maxillary sinus related to sinus disease, or poss orbital floor fracture. However om physican exam without any pain. CT cervical spine rev and normal. CT thoracic and lumbar spine reviewed, with DJD Left elbow no fracture CXR no infiltrates, no rib fracture Check 2D ECHO Check carotid US rev and normal Neuro checks Restart home meds. EKG: Sinus, rate 77, leftward axis, normal intervals, no acute ischemic abnormality. Monitor on telemetry Holter monitor to check for arrhythmia Hold losartan home meds in light of RENZO Start IVF . Monitor kidney function. Avoid nephrotoxins DVT ppx with SCD/TEDs Discussed Condition With patient, nurse, at bedside, ED physician Ping Grimaldo MD Oct 03, 2016 06:15
[2016-10-03 06:17] LABS: BICARBONATE 26.9 MEQ/L (21.0-32.0); MAGNESIUM 2.2 MG/DL (1.5-2.5); POTASSIUM 3.5 MEQ/L (3.5-5.1)
[2016-10-03] MEDS: DOCUSATE SODIUM 50 MG/SENNA 8.6 MG TAB PO SCH ×2 (08:27→19:42)
[2016-10-03] MEDS: SODIUM CHLORIDE 0.9% FLUSH 10 ML FLUSH IV FLUSH SCH ×2 (08:28→19:42)
--- NOTE | 2016-10-03 11:15 | EKG ---
Date Performed: 10/02/2016 Time Performed: 21:53:03 PTAGE: 41 years EKG: Sinus rhythm NORMAL ECG NO PREVIOUS TRACING DOCTOR: Chris Daniel Interpretating Date/Time 10/03/2016 11:13:47
--- NOTE | 2016-10-03 12:21 | ECHRPT ---
Indication: Chest pain, unspecified CONCLUSIONS Normal left ventricular size. Mild concentric left ventricular hypertrophy. The left ventricular systolic function is low normal with an estimated ejection fraction in the rang e of 50- 55%. No regional wall motion abnormalities are present. Doppler parameters are consistent with impaired left ventricular relaxtion (grade 1 diastolic dysfun ction). The aortic valve is not well visualized. Cannot rule out a bicuspid aortic valve or trileaflet valve with partially fused commissure. Mild thickening of the aortic valve leaflets. Diffuse calcification of the aortic valve. Mild aortic valve regurgitation. Eccentric aortic regurgitation jet directed at the ventricular septum. No aortic valve stenosis. Structurally normal tricuspid valve. There is trace tricuspid valve regurgitation. Pulmonary arterial systolic pressure could not be sincere mated due to an insufficient tricuspid valve regurgitation doppler jet for measurement. The aortic root and proximal ascending aorta are not well visualized. Mildly dilated proximal ascending aorta. BP: 112 / 68 HR: 65 Rhythm: MEASUREMENTS (Male / Female) Normal Values Technical Quality:Good 2D ECHO LV Diastolic Diameter PLAX 4.0 cm 4.2 - 5.9 / 3.9 - 5.3 cm LV Systolic Diameter PLAX 3.3 cm IVS Diastolic Thickness 1.4 cm 0.6 - 1.0 / 0.6 - 0.9 cm LVPW Diastolic Thickness 1.2 cm 0.6 - 1.0 / 0.6 - 0.9 cm LV Relative Wall Thickness 0.6 RV Internal Dim ED PLAX 2.8 cm LVOT Diameter 2.5 cm M-MODE Aortic Root Diameter MM 3.5 cm LA Systolic Diameter MM 2.3 cm LA Ao Ratio MM 0.7 AV Cusp Separation MM 1.3 cm DOPPLER AV Peak Velocity 153.0 cm/s AV Peak Gradient 9.4 mmHg AV Mean Gradient 5.0 mmHg AV Velocity Time Integral 37.3 cm AI Peak Velocity 276.0 cm/s AI Peak Gradient 30.5 mmHg AI Pressure Half Time 883.5 ms LVOT Peak Velocity 84.2 cm/s LVOT Peak Gradient 2.8 mmHg LVOT Velocity Time Integral 21.6 cm LVOT Cardiac Index 3261.9 cm/minm AV Area Cont Eq vti 2.8 cm AV Area Cont Eq pk 2.7 cm Mitral E Point Velocity 58.2 cm/s Mitral A Point Velocity 59.7 cm/s Mitral E to A Ratio 1.0 LV E' Lateral Velocity 11.0 cm/s Mitral E to LV E' Lateral Ratio 5.3 LV E' Septal Velocity 7.2 cm/s Mitral E to LV E' Septal Ratio 8.1 TR Peak Velocity 239.0 cm/s TR Peak Gradient 22.8 mmHg FINDINGS LEFT VENTRICLE Normal left ventricular size. Mild concentric left ventricular hypertrophy. The left ventricular systolic function is low normal with an estimated ejection fraction in the rang e of 50- 55%. No regional wall motion abnormalities are present. Doppler parameters are consistent with impaired left ventricular relaxtion (grade 1 diastolic dysfun ction). RIGHT VENTRICLE The right ventricular size is normal. LEFT ATRIUM The left atrial size is normal. RIGHT ATRIUM The right atrial size is normal. ATRIAL SEPTUM Normal atrial septal thickness without atrial level shunting by limited color doppler interrogation. AORTA The aortic root and proximal ascending aorta are not well visualized. Mildly dilated proximal ascending aorta. MITRAL VALVE Trace mitral valve regurgitation. AORTIC VALVE The aortic valve is not well visualized. Cannot rule out a bicuspid aortic valve or trileaflet valve with partially fused commissure. Mild thickening of the aortic valve leaflets. Diffuse calcification of the aortic valve. Mild aortic valve regurgitation. Eccentric aortic regurgitation jet directed at the ventricular septum. No aortic valve stenosis. TRICUSPID VALVE Structurally normal tricuspid valve. There is trace tricuspid valve regurgitation. Pulmonary arterial systolic pressure could not be sincere mated due to an insufficient tricuspid valve regurgitation doppler jet for measurement. PULMONARY VALVE The pulmonary valve is not well visualized. VESSELS The inferior vena cava is normal in size. PERICARDIUM No pericardial effusion. Bobby Mae MD, FACC (Electronically Signed) Final Date:03 October 2016 12:20 Amended: 03 October 2016 13:30
[2016-10-03] MEDS ORDERED: WALKER WHEELS/F1 MIS (14:28)
--- NOTE | 2016-10-03 14:38 | HHI.PR ---
Subjective Remarks Follow-up for syncope. This patient states that he's been having more frequent episodes of syncope as of late, although this is been an ongoing problem for some time. He has had multiple Holter monitors with no significant arrhythmia found in the past. He states that his past echocardiograms he's always told of them fine. He does report some dizziness whenever he stands up. He states he was previously on 150 mg of losartan, and his PCP decreased it to 100 mg. He states he normally ambulates using a cane secondary to arthritis in his knees. He states that he ambulated with the walker and PT today. He continues to complain of headache and elbow pain from where he fell after he syncopized. He states the [place] helps with the pain, but makes him sleepy. Discussed with cardiology, Dr. Mae, who recommended the recorder tomorrow a.m. The patient has at bedside are happily agreeable. Objective Vitals Vital Signs Date Time Temp Pulse Resp B/P Pulse Ox O2 Delivery O2 Flow Rate FiO2 10/03/16 12:30 18 10/03/16 11:23 97.8 65 20 120/83 97 10/03/16 07:47 97.6 68 21 117/78 96 10/03/16 03:12 98.5 65 22 112/68 98 10/03/16 02:39 60 10/03/16 00:06 97 21 10/02/16 23:01 100 Room Air 10/02/16 21:51 20 18 97 Room Air 10/02/16 21:51 98.7 78 18 118/65 97 Room Air 10/02/16 21:46 98.8 77 18 98 I/O 10/02/16 10/02/16 10/02/16 10/03/16 10/03/16 10/03/16 07:00 15:00 23:00 07:00 15:00 23:00 Intake Total 240 ml Balance 240 ml Intake Oral 240 ml Result Diagram: 10/03/16 0507 10/03/16 0507 Imaging Last Impressions Carotid Artery Ultrasound 10/03/16 0000 Signed Impressions: Service Date/Time: Monday, October 03, 2016 00:39 - CONCLUSION: Normal examination. Matthew Smith MD Head CT 10/02/16 4063 Signed Impressions: Service Date/Time: Sunday, October 02, 2016 22:47 - CONCLUSION: 1. No acute findings in the brain. 2. Rounded opacity in the superior right maxillary sinus could be related to sinus disease, however since this is adjacent to the infraorbital region, and correlation clinical history to see whether the patient is at risk of an orbital floor fracture. If so, then further assessment with CT orbits to include coronal images may be helpful. González Oden MD Chest X-Ray 10/02/162216 Signed Impressions: Service Date/Time: Sunday, October 02, 2016 22:30 - CONCLUSION: The lungs are clear. González Oden MD Cervical Spine CT 10/02/162216 Signed Impressions: Service Date/Time: Sunday, October 02, 2016 22:47 - CONCLUSION: Negative CT cervical spine. González Oden MD Thoracic Spine CT 10/02/16 0000 Signed Impressions: Service Date/Time: Sunday, October 02, 2016 22:52 - CONCLUSION: Slight degenerative change without any significant compromise to the thecal sac or the exiting nerve roots. Matthew Smith MD Lumbar Spine CT 10/02/16 0000 Signed Impressions: Service Date/Time: Sunday, October 02, 2016 22:54 - CONCLUSION: Slight degenerative changes and bulging discs without any significant compromise to the thecal sac or the exiting nerve roots. Matthew Smith MD Elbow X-Ray 10/02/16 0000 Signed Impressions: Service Date/Time: Sunday, October 02, 2016 22:37 - CONCLUSION: No evidence of recent bony injury. González Oden MD Objective Remarks GENERAL: Well-developed well-nourished. In no acute distress. SKIN: Warm and dry. No lesions noted. HEENT: Normocephalic. Pupils equal and round. Mucous membranes pink and moist. CARDIOVASCULAR: Regular rate and rhythm. No murmur appreciated. RESPIRATORY: No accessory muscle use. Clear to auscultation. Breath sounds equal bilaterally. GASTROINTESTINAL: Abdomen soft, non-tender, nondistended. Bowel sounds x4. MUSCULOSKELETAL: No obvious deformities. No clubbing or cyanosis. No edema. NEUROLOGICAL: Awake and alert. No focal neurological deficits. Moves upper and lower extremities spontaneously. Normal speech. PSYCHIATRIC: Appropriate mood and affect; insight and judgment normal. A/P Assessment and Plan 41-year-old male here for evaluation of posterior head pain, neck pain, left elbow pain after a recurrent syncopal episode Syncope: Reviewed: Head CT with no acute intracranial findings. Carotid ultrasound normal. Echocardiogram with bicuspid aortic valve, low normal systolic function EF 5055 %, grade 1 diastolic dysfunction, mild aortic regurgitation. Troponins nonischemic 3. -Cardiology consulted and recommended implantable loop recorder -Check orthostatics and adjust BP meds as indicated -Monitor on telemetry Fall secondary to syncope: Reviewed: C-spine CT with no acute process. Thoracic and lumbar spine CTs with mild degenerative findings in no acute process. Elbow x-ray with no evidence of fracture. -PT consulted, recommended walker -[place] as needed for pain Hypertension: BP is been soft. Losartan has been held. Started on low-dose metoprolol. Check orthostatics. Monitor and adjust medications as needed. Possible acute kidney injury: Creatinine 1.32, no previous labs for comparison. Creatinine slightly improved overnight and 1.24. IVF and follow-up BMP. DVT prophylaxis: SCDs Discharge Planning Likely discharge after loop recorder implanted tomorrow. Al Howard Oct 03, 2016 14:38
--- NOTE | 2016-10-03 14:42 | MB ---
cc: FELICITAS LUCAS DATE OF CONSULTATION: 10/04/2015 REASON FOR CONSULTATION Syncope. HISTORY OF PRESENT ILLNESS This is a 41-year-old gentleman who presented to the emergency department at [facility] with a syncopal episode. He has a prior history of a partially bicuspid aortic valve which sounds more consistent with a fused commissure. He was in his usual state of health. He returned from grocery shopping with his , had sat down at the coffee table at home. He then started to feel light-headed, had some black spots before his eyes and a full syncopal episode hitting his head. He did not sustain any major trauma but he did say that he did not quite feel himself that day. His witnessed the event and said that he had some slurred speech and was in and out of consciousness. He came into the emergency department here. He has been stable, asymptomatic. He has had some complaints of some elbow pain and back pain along with head pain. Telemetry has been unremarkable. An echocardiogram was done which did not show any significant abnormalities outside of what would be expected with his pseudo bicuspid aortic valve. He did not have significant aortic stenosis, regurgitation, and his aortic root was only mildly dilated. We are consulted for further recommendations. He has had several episodes of these syncopal events over the course of the past few years and more recently in the past two months he has had two or three. Unfortunately we have never been able to capture an episode. He has no prodrome and there are no related triggers. ALLERGIES LATEX. PAST MEDICAL HISTORY 1. Pseudo bicuspid aortic valve. 2. Lipoma removal. 3. Carpal tunnel. FAMILY HISTORY Denies any family history of early cardiac disease or sudden cardiac . SOCIAL HISTORY Denies alcohol, tobacco or drug use. REVIEW OF SYSTEMS A 12-point review of systems was performed and is negative unless otherwise noted in the history of present illness. PHYSICAL EXAMINATION VITAL SIGNS: Temperature 97, pulse 65, blood pressure 120/83 mmHg. GENERAL: Alert and oriented x3, in no acute distress. HEENT: Pupils reactive to light and accommodation. Extraocular movements are intact. NECK: No jugular venous distention. No thyromegaly. No lymphadenopathy. No carotid bruits. LUNGS: Clear to auscultation bilaterally. CARDIOVASCULAR: Regular rate and rhythm without murmurs, rubs or gallops. ABDOMEN: Nontender, nondistended. Good bowel sounds. No hepatosplenomegaly. EXTREMITIES: No clubbing, cyanosis or edema. Good peripheral pulses. NEUROLOGIC: Cranial nerves intact. Motor and sensory grossly intact. LABORATORY WBC 6.5, hemoglobin 12.4, platelet count 215. INR is 1. Sodium 144, potassium 3.5, BUN 16, creatinine 1.24. ELECTROCARDIOGRAM Electrocardiogram is normal sinus rhythm. ASSESSMENT 1. Syncope. 2. Pseudo bicuspid aortic valve with mild regurgitation and aortic sclerosis. PLAN Unclear etiology to his presentation. So far labs unremarkable, telemetry unremarkable, EKG unremarkable. His symptoms do sound convincing. He had a witnessed arrest. There was no obvious seizure activity. It does sound somewhat arrhythmia-based. He has had several episodes but all have been weeks to months apart. Fortunately the only way for us to know for sure would be to capture an episode at the time of an event. EMS reported that his blood pressure was okay at the time of their arrival but he had already started recovering. An external monitor such as a Holter event monitor probably would not capture an event given the long duration of time between syncopal episodes. I would recommend implantation of a loop recorder. I asked Dr. El Steve to place a loop recorder and he is agreeable to doing so tomorrow. The patient already ate lunch this afternoon. From an aortic valve standpoint he does have what looks like a fused commissure consistent with a pseudo bicuspid aortic valve. There is minimal regurgitation and only aortic sclerosis noted with a normal ejection fraction. His aortic root is also only mildly dilated. All can be followed with an annual echocardiogram at this point. After loop recorder if he has no events he can be discharged and have outpatient follow-up. He is going to establish with a logistics research engineer in [place] that his family knows. MD DANNA Jeffery/RUBI /2:11 PM /2:30 PM
[2016-10-03] MEDS ORDERED: SODIUM CHLOR 0.9% 1000 ML INJ 1,000 ML IV SCH (14:45)
[2016-10-03] MEDS: METOPROLOL TARTRATE 25 MG TAB PO SCH (19:42)
[2016-10-03] MEDS ORDERED: ACETAMINOPHEN/HYDROcodone 325 MG/5 MG TAB PO ONE ×2 (20:00)
[2016-10-04] MEDS: SODIUM CHLOR 0.9% 1000 ML INJ 1,000 ML IV SCH (03:13)
[2016-10-04 03:15] VITALS: BP 131/88; PULSE 58; RESP 18; TEMP 97.8; O2SAT 96
[2016-10-04] MEDS: ACETAMINOPHEN/HYDROcodone 325 MG/5 MG TAB PO PRN (06:28)
[2016-10-04 07:47] VITALS: BP_SYST 119; BP_SYST 135; BP_SYST 146; BP_DIAS 81; BP_DIAS 83; BP_DIAS 87; PULSE 60; RESP 18; TEMP 96.9; O2SAT 96
--- NOTE | 2016-10-04 07:59 | HHI.PR ---
Subjective Remarks Follow-up for syncope. Patient seen with at bedside. The patient did not sleep well last night, but does have issues with insomnia and declines any medications. They have no other acute complaints or concerns today. Going for a loop recorder implantation around noon today. Objective Vitals Vital Signs Date Time Temp Pulse Resp B/P Pulse Ox O2 Delivery O2 Flow Rate FiO2 10/04/16 03:15 97.8 58 18 131/88 96 10/03/16 23:46 98.0 71 21 133/88 97 10/03/16 22:37 67 10/03/16 22:28 16 10/03/16 19:37 16 10/03/16 19:28 98.0 79 21 121/79 98 10/03/16 16:32 117/73 132/83 134/85 10/03/16 15:19 98.0 77 18 134/82 97 10/03/16 11:23 97.8 65 20 120/83 97 I/O 10/03/16 10/03/16 10/03/16 10/04/16 10/04/16 10/04/16 07:00 15:00 23:00 07:00 15:00 23:00 Intake Total 240 ml Output Total 1500 ml 800 ml Balance 240 ml -1500 ml -800 ml Intake Oral 240 ml Output Urine Total 1500 ml 800 ml Result Diagram: 10/03/16 0507 10/03/16 0507 Imaging Last Impressions Carotid Artery Ultrasound 10/03/16 0000 Signed Impressions: Service Date/Time: Monday, October 03, 2016 00:39 - CONCLUSION: Normal examination. KImelda Smith MD Head CT 10/02/162216 Signed Impressions: Service Date/Time: Sunday, October 02, 2016 22:47 - CONCLUSION: 1. No acute findings in the brain. 2. Rounded opacity in the superior right maxillary sinus could be related to sinus disease, however since this is adjacent to the infraorbital region, and correlation clinical history to see whether the patient is at risk of an orbital floor fracture. If so, then further assessment with CT orbits to include coronal images may be helpful. González Oden MD Chest X-Ray 10/02/162216 Signed Impressions: Service Date/Time: Sunday, October 02, 2016 22:30 - CONCLUSION: The lungs are clear. González Oden MD Cervical Spine CT 10/02/16 2217 Signed Impressions: Service Date/Time: Sunday, October 02, 2016 22:47 - CONCLUSION: Negative CT cervical spine. González Oden MD Thoracic Spine CT 10/02/16 0000 Signed Impressions: Service Date/Time: Sunday, October 02, 2016 22:52 - CONCLUSION: Slight degenerative change without any significant compromise to the thecal sac or the exiting nerve roots. Matthew Smith MD Lumbar Spine CT 10/02/16 0000 Signed Impressions: Service Date/Time: Sunday, October 02, 2016 22:54 - CONCLUSION: Slight degenerative changes and bulging discs without any significant compromise to the thecal sac or the exiting nerve roots. Matthew Smith MD Elbow X-Ray 10/02/16 0000 Signed Impressions: Service Date/Time: Sunday, October 02, 2016 22:37 - CONCLUSION: No evidence of recent bony injury. González Oden MD Objective Remarks GENERAL: Well-developed well-nourished. In no acute distress. SKIN: Warm and dry. No lesions noted. HEENT: Normocephalic. Pupils equal and round. Mucous membranes pink and moist. CARDIOVASCULAR: Regular rate and rhythm. No murmur appreciated. RESPIRATORY: No accessory muscle use. Clear to auscultation. Breath sounds equal bilaterally. GASTROINTESTINAL: Abdomen soft, non-tender, nondistended. Bowel sounds x4. MUSCULOSKELETAL: No obvious deformities. No clubbing or cyanosis. No edema. NEUROLOGICAL: Awake and alert. No focal neurological deficits. Moves upper and lower extremities spontaneously. Normal speech. PSYCHIATRIC: Appropriate mood and affect; insight and judgment normal. A/P Assessment and Plan 41-year-old male here for evaluation of posterior head pain, neck pain, left elbow pain after a recurrent syncopal episode Syncope: Reviewed: Head CT with no acute intracranial findings. Carotid ultrasound normal. Echocardiogram with bicuspid aortic valve, low normal systolic function EF 5055 %, grade 1 diastolic dysfunction, mild aortic regurgitation. Troponins nonischemic 3. Telemetry showed bradycardia in the high 40s while sleeping, and otherwise no significant arrhythmias. Non-orthostatic. -Cardiology consulted and recommended implantable loop recorder -Monitor on telemetry Fall secondary to syncope: Reviewed: C-spine CT with no acute process. Thoracic and lumbar spine CTs with mild degenerative findings in no acute process. Elbow x-ray with no evidence of fracture. -PT consulted, recommended walker -[place] as needed for pain Hypertension: BP was soft. Losartan has been held. Started on low-dose metoprolol. BP seems improved at this time. Possible acute kidney injury: Creatinine 1.32, no previous labs for comparison. Creatinine slightly improved overnight and 1.24. IVF. Repeat BMP pending. DVT prophylaxis: SCDs Discharge Planning Likely discharge after loop recorder implanted. 1200 contacted by DOCU RN. The patient has been cleared from cardiology perspective for discharge after loop recorder placement. Attending Statement Discussed with Cardiology nurse, the patient was recommended to discharge by Cardiology from the Operating room after Loop recording placed. Al Howard Oct 04, 2016 07:59 Zak Elizondo MD Oct 04, 2016 17:20
[2016-10-04 08:00] VITALS: PULSE 52
[2016-10-04 08:02] LABS: AUTOMATED NEUTROPHIL # 3.4 TH/MM3 (1.8-7.7); BASOPHIL % 0.6 % (0.0-2.0); EOSINOPHIL # 0.2 TH/MM3 (0-0.4); EOSINOPHIL % 3.1 % (0.0-4.0); HEMATOCRIT 36.6 % (39.0-51.0); HEMO FLAGS DIFF FINAL; LYMPH % 31.7 % (9.0-44.0); LYMPHOCYTE # 1.8 TH/MM3 (1.0-4.8); MEAN CORPUSCULAR HEMOGLOBIN 29.5 PG (27.0-34.0); MEAN CORPUSCULAR HGB CONC 34.7 % (32.0-36.0); MONO % 5.5 % (0.0-8.0); NEUT % 59.1 % (16.0-70.0); PLATELET COUNT 224 TH/MM3 (150-450); RED BLOOD COUNT 4.31 MIL/MM3 (4.50-5.90); RED CELL DISTRIBUTION WIDTH 12.5 % (11.6-17.2); WHITE BLOOD COUNT 5.8 TH/MM3 (4.0-11.0)
[2016-10-04 08:22] LABS: BICARBONATE 25.3 MEQ/L (21.0-32.0); POTASSIUM 3.9 MEQ/L (3.5-5.1)
--- NOTE | 2016-10-04 08:23 | PD.CARD.PN ---
Subjective Subjective Remarks denies any CV complaints Objective Vital Signs / I&O Vital Signs Date Time Temp Pulse Resp B/P Pulse Ox O2 Delivery O2 Flow Rate FiO2 10/04/16 07:47 96.9 60 18 119/81 96 146/83 135/87 10/04/16 03:15 97.8 58 18 131/88 96 10/03/16 23:46 98.0 71 21 133/88 97 10/03/16 22:37 67 10/03/16 22:28 16 10/03/16 19:37 16 10/03/16 19:28 98.0 79 21 121/79 98 10/03/16 16:32 117/73 132/83 134/85 10/03/16 15:19 98.0 77 18 134/82 97 10/03/16 11:23 97.8 65 20 120/83 97 I/O 10/03/16 10/03/16 10/03/16 10/04/16 10/04/16 10/04/16 07:00 15:00 23:00 07:00 15:00 23:00 Intake Total 240 ml Output Total 1500 ml 800 ml Balance 240 ml -1500 ml -800 ml Intake Oral 240 ml Output Urine Total 1500 ml 800 ml Physical Exam GENERAL: Well-nourished, well-developed patient in no apparent distress. NECK: No JVD. No carotid bruit. CARDIOVASCULAR: Regular rate and rhythm. S1/S2 no murmur, rub, or gallop. RESPIRATORY: No accessory muscle use. Clear to auscultation. Breath sounds equal bilaterally. GASTROINTESTINAL: Abdomen soft, non-tender, nondistended. MUSCULOSKELETAL: Extremities without clubbing, cyanosis, or edema. Laboratory Laboratory Tests Test 10/03/16 10/04/16 11:09 05:50 Total Creatine Kinase 111 U/L Troponin I 0.03 NG/ML White Blood Count 5.8 TH/MM3 Red Blood Count 4.31 MIL/MM3 Hemoglobin 12.7 GM/DL Hematocrit 36.6 % Mean Corpuscular Volume 85.0 FL Mean Corpuscular Hemoglobin 29.5 PG Mean Corpuscular Hemoglobin 34.7 % Concent Red Cell Distribution Width 12.5 % Platelet Count 224 TH/MM3 Mean Platelet Volume 10.2 FL Neutrophils (%) (Auto) 59.1 % Lymphocytes (%) (Auto) 31.7 % Monocytes (%) (Auto) 5.5 % Eosinophils (%) (Auto) 3.1 % Basophils (%) (Auto) 0.6 % Neutrophils # (Auto) 3.4 TH/MM3 Lymphocytes # (Auto) 1.8 TH/MM3 Monocytes # (Auto) 0.3 TH/MM3 Eosinophils # (Auto) 0.2 TH/MM3 Basophils # (Auto) 0.0 TH/MM3 CBC Comment DIFF FINAL Differential Comment Assessment and Plan Problem List: (1) Syncope Assessment and Plan He is scheduled for loop recorder implant today. No significant arrhythmia seen on telemetry Problem Qualifiers (1) Syncope: Qualified Code: R55 - Syncope, unspecified syncope type Chaim Cherry Oct 04, 2016 08:23
[2016-10-04] MEDS: METOPROLOL TARTRATE 25 MG TAB PO SCH (08:37)
[2016-10-04] MEDS: SODIUM CHLORIDE 0.9% FLUSH 10 ML FLUSH IV FLUSH SCH (08:37)
[2016-10-04] MEDS: DOCUSATE SODIUM 50 MG/SENNA 8.6 MG TAB PO SCH (08:37)
[2016-10-04] MEDS ORDERED: METO25TA3 PO (11:01)
[2016-10-04] MEDS ORDERED: Hold AM Insulin & AM Hypoglycemic medications in diabetic patients PRN (11:30)
[2016-10-04] MEDS ORDERED: NO Heparin, Lovenox, Coumadin at least 12 hours prior to procedure. PRN (11:30)
[2016-10-04] MEDS ORDERED: MIDAZOLAM HCL 2 MG/2 ML VIAL ONE (11:30)
[2016-10-04] MEDS ORDERED: POVIDONE IODINE 5% (ANTISEPSIS KIT) 4 APPLICATIONS EACH NARE SCH (11:30)
[2016-10-04] MEDS ORDERED: ceFAZolin 2 GM PREMIX 50 ML IV SCH (11:30)
[2016-10-04] MEDS ORDERED: VANCOMYCIN 1000 MG/NS 250 ML IV SCH ×2 (11:30)
[2016-10-04] MEDS ORDERED: CHLORHEXIDINE GLUCONATE 2 % 1 PACK (2 CLOTHS) TOPICAL SCH (11:30)
[2016-10-04] MEDS ORDERED: MUPIROCIN 2% OINT 1 APPLIC/GM SYR NASAL SCH (12:00)
--- NOTE | 2016-10-04 13:00 | MA ---
cc: WALDEMAR STEVE MD, STEPHEN DATE: 10/04/[address] Waldemar Steve PREPROCEDURE DIAGNOSIS Syncope. PROCEDURE PERFORMED 1. 15 minutes moderate IV sedation. 2. Successful loop recorder insertion. DESCRIPTION OF PROCEDURE After informed consent was obtained a AGELON ? LINQ loop recorder was inserted subcutaneously to the left chest. The patient tolerated the procedure well without any apparent complication. The initial R-wave was 0.68 mV. Tachybrady pause and atrial fibrillation detection was enabled. The serial number was [id number]. Prior to the loop recorder insertion 2 mg of Versed and 15 mcg of fentanyl was used for moderate IV sedation. Waldemar Steve MD DAVIAN/RUBI /12:34 PM /12:57 PM
--- NOTE | 2016-10-04 14:02 | HM ---
Date Performed: 10/03/2016 Time Performed: 10:30:00 HOOKUP DATE: 10/03/16 10:30:00 AM Mon ANALYSIS START TIME: 10/03/2016 10:35:00 AM ANALYSIS END TIME: 10/04/2016 10:01:37 AM PATIENT AGE: 41 PATIENT HEIGHT PATIENT WEIGHT DRUG LIST PATIENT DIAGNOSIS: SYNCOPAL EPISODE TEST NARRATIVE: The patient's average heart rate was 65 BPM. No episodes of tachycardia wer e noted. Heart rates less than 50 BPM were noted 1% of the time. No pauses exceeding 2.0 seconds were noted. 36 ventricular ectopics, which represented < 1% of the total beat count, were noted. The highest ventricular ectopic frequency occurred from 11:00 AM to 12:00 PM Mon. During this time 8 VE(s) occurred. Ventricular ectopics were observed as 36 isolated beat(s) only. No couplets or r uns were noted. 12 supraventricular ectopics, which represented < 1% of the total beat count, wer e noted. The highest supraventricular ectopic frequency occurred from 09:00 AM to 10:00 AM Tue. Dur ing this time 7 SVE(s) occurred. No episodes of ST depression (defined as -1.0 mm or more) were n oted in channel 1. No episodes of ST depression (defined as -1.0 mm or more) were noted in channel 2 . No episodes of ST depression (defined as -1.0 mm or more) were noted in channel 3. NO DIARY ENTRIE S TEST INTERPRETATION: No significant pauses were seen and no symptoms noted. The underlying rhyt hm is Sinus rhythm with average rate 65 beats per minute and range of 47-104 beats per minute. Rare premature atrial a nd ventricular contractions are seen. Extremely rare short time atrial runs are seen up to 6 beats. Signed by : Bernardino Parra
== END 2016-10-04 14:05 | disposition home or self-care (01) | DRG 261 ==
LOC: NEPD 21:40 → NEDA 10-03 00:10 → NEPHCDU 10-03 01:11 → OBSVTOIN 10-03 10:48 → HCIS 10-04 11:27 → NEPHCDU 10-04 11:40
PROVIDERS: ADMIT Internal Medicine; ATTEND Internal Medicine
PROC: 0JH632Z Insertion of Monitoring Device into Chest Subcutaneous Tissue and Fascia, Percutaneous Approach (ICD-10-PCS; principal; 2016-10-04)
DX: R55 Syncope and collapse (principal); Q23.1 Congenital insufficiency of aortic valve; N17.9 Acute kidney failure, unspecified; I10 Essential (primary) hypertension; M17.0 Bilateral primary osteoarthritis of knee; Z91.81 History of falling; M54.2 Cervicalgia; M25.522 Pain in left elbow
CPT/HCPCS: 70450; 71010; 72125; 72128; 72131; 73080; 80048; 80053; 81001; 82550; 82552; 83735; 84484; 85025; 85610; 85730; 93005; 93225; 93226; 93306; 93880; 96374; J0690; J1650; J2250; J2765; J3010; J7030

== ENCOUNTER 2017-02-02 18:19 | Emergency (ER) | payer MEDICARE ==
[~2017-02-02] VITALS: Ht 180.3 cm; Wt 83.0 kg
[~2017-02-02 18:19] MED LIST: METO25TA3 PO; WALKER WHEELS/F1 MIS
[2017-02-02 18:23] VITALS: BP 136/95; PULSE 108; RESP 16; TEMP 98.3; O2SAT 97
[2017-02-02] MEDS ORDERED: ASPI81CH7 CHEW (18:40)
[2017-02-02] MEDS ORDERED: WARF-22 PO (18:40)
[2017-02-02] MEDS ORDERED: WARF-21 PO (18:41)
[2017-02-02] MEDS ORDERED: MORPHINE SULFATE 4 MG/ML INJ IV PUSH ONE (19:00)
[2017-02-02] MEDS ORDERED: SODIUM CHLORIDE 0.9% FLUSH 10 ML FLUSH IVF PRN (19:00)
[2017-02-02 19:17] VITALS: BP 150/101; PULSE 96; RESP 18; O2SAT 96
--- NOTE | 2017-02-02 19:18 | PD ---
HPI . Fatigue Chief Complaint: General Weakness Time Seen by Provider: 18:54 Travel History International Travel<30 days: No Contact w/Intl Traveler<30days: No Traveled to known affect area: No History of Present Illness HPI This patient presents complaining with generalized fatigue which started yesterday. He is also complaining with some sharp, left anterior chest pain that starts at the neck and goes all the way down to the upper abdomen. He is further complaining with some mild shortness of breath. This chest discomfort is exacerbated by breathing. He reports a cough productive of some green sputum. He has had subjective fevers and chills. This all started yesterday. He states that he has a palpable lump in the left anterior chest wall which she just noticed yesterday. He states that this lump is mildly tender to touch. His symptoms are mild and there are no modifying factors. PFSH Past Medical History Narrative Medical The patient underwent AVR with a mechanical valve in [place] on 11/01/16. The next day, he had a pacemaker placed emergently, also in [place]. His body liner is located in [place]. Hx Anticoagulant Therapy: Yes (WARFARIN AND BABY ASA) Blood Disorders: No Heart Rhythm Problems: Yes Cancer: No Cardiac Catheterization: Yes Cardiovascular Problems: Yes (HTN) High Cholesterol: No Chest Pain: No Congestive Heart Failure: No Diabetes: No Diminished Hearing: No Endocrine: No Genitourinary: No Hypertension: Yes Immune Disorder: No Musculoskeletal: No Neurologic: Yes Psychiatric: No Reproductive: No Respiratory: No Tetanus Vaccination: > 5 Years Influenza Vaccination: Yes Past Surgical History Cardiac Surgery: Yes (PACER) Pacemaker: Yes Other Surgery: Yes (CARPAL TUNNEL RIGHT WRIST, LIPOMA REMOVED) Social History Alcohol Use: No Tobacco Use: No Substance Use: No Allergies-Medications (Allergen,Severity, Reaction): Coded Allergies: ketorolac (Verified Allergy, Severe, Hallucinations, 02/02/17) latex (Unverified Allergy, Intermediate, 02/02/17) Reported Meds & Prescriptions Reported Meds & Active Scripts Active Metoprolol Tartrate 25 Mg Tab 12.5 Mg PO Q12HR Reported Warfarin 7.5 Mg Tab 7.5 Mg PO DIRECTED Warfarin 10 Mg Tab 11.5 Mg PO ON MON Aspirin Children's (Aspirin) 81 Mg Chew 81 Mg CHEW DAILY Review of Systems Except as stated in HPI: all other systems reviewed are Neg General / Constitutional: Positive: Fever, Chills HENT: Positive: Congestion Cardiovascular: Positive: Chest Pain or Discomfort Respiratory: Positive: Cough, Shortness of Breath Gastrointestinal: Positive: Constipation, No: Nausea, Vomiting, Diarrhea, Abdominal Pain Genitourinary: No: Urgency, Frequency, Dysuria Skin: Positive Lumps Physical Exam Narrative GENERAL: Awake and alert and in no acute distress. SKIN: warm/dry. HEAD: Normocephalic. Atraumatic. EYES: Pupils equal and round. No scleral icterus. No injection or drainage. ENT: No nasal bleeding or discharge. Mucous membranes pink and moist. NECK: Trachea midline. Full range of motion without pain.. CARDIOVASCULAR: Regular rate and rhythm. Loud S2 compatible with previous AVR with a mechanical bowel. RESPIRATORY: No accessory muscle use. Clear to auscultation. Breath sounds equal bilaterally. There is a palpable mass in the lower left anterior lateral rib cage which is mildly tender. The overlying skin is not red or hot. There is no fluctuance. The mass does not feel mobile. GASTROINTESTINAL: Abdomen soft. Nontender. Bowel sounds present. Nondistended. MUSCULOSKELETAL: No obvious deformities. NEUROLOGICAL: Awake and alert. No obvious cranial nerve deficits. Motor grossly within normal limits. Normal speech. PSYCHIATRIC: Appropriate mood and affect; insight and judgment normal. Data Data Last Documented VS Vital Signs Date Time Temp Pulse Resp B/P (MAP) Pulse Ox O2 Delivery O2 Flow Rate FiO2 02/02/17 19:53 96 18 152/100 (117) 97 Room Air 02/02/17 18:23 98.3 Orders Orders Electrocardiogram (02/02/17 18:54) Basic Metabolic Panel (Bmp) (02/02/17 18:54) Complete Blood Count With Diff (02/02/17 18:54) Magnesium (Mg) (02/02/17 18:54) Prothrombin Time / Inr (Pt) (02/02/17 18:54) Act Partial Throm Time (Ptt) (02/02/17 18:54) Troponin I (02/02/17 18:54) Ecg Monitoring (02/02/17 18:54) Iv Access Insert/Monitor (02/02/17 18:54) Oximetry (02/02/17 18:54) Morphine Inj (Morphine Inj) (02/02/17 19:00) Sodium Chloride 0.9% Flush (Ns Flush) (02/02/17 19:00) Ct Pulmonary Angiogram (02/02/17 18:54) Blood Culture (02/02/17 19:18) Lactic Acid (02/02/17 19:18) Iohexol 350 Inj (Omnipaque 350 Inj) (02/02/17 20:00) Labs Laboratory Tests Test 02/02/17 19:05 02/02/17 19:29 White Blood Count 14.6 TH/MM3 Red Blood Count 5.14 MIL/MM3 Hemoglobin 14.0 GM/DL Hematocrit 42.7 % Mean Corpuscular Volume 83.2 FL Mean Corpuscular Hemoglobin 27.2 PG Mean Corpuscular Hemoglobin Concent 32.7 % Red Cell Distribution Width 13.1 % Platelet Count 264 TH/MM3 Mean Platelet Volume 9.3 FL Neutrophils (%) (Auto) 76.8 % Lymphocytes (%) (Auto) 14.0 % Monocytes (%) (Auto) 6.2 % Eosinophils (%) (Auto) 0.4 % Basophils (%) (Auto) 2.6 % Neutrophils # (Auto) 11.2 TH/MM3 Lymphocytes # (Auto) 2.0 TH/MM3 Monocytes # (Auto) 0.9 TH/MM3 Eosinophils # (Auto) 0.1 TH/MM3 Basophils # (Auto) 0.4 TH/MM3 CBC Comment DIFF FINAL Differential Comment Prothrombin Time 27.5 SEC Prothromb Time International Ratio 2.4 RATIO Activated Partial Thromboplast Time 45.0 SEC Blood Urea Nitrogen 9 MG/DL Creatinine 0.96 MG/DL Random Glucose 100 MG/DL Calcium Level 9.2 MG/DL Magnesium Level 1.9 MG/DL Sodium Level 138 MEQ/L Potassium Level 3.6 MEQ/L Chloride Level 103 MEQ/L Carbon Dioxide Level 25.0 MEQ/L Anion Gap 10 MEQ/L Estimat Glomerular Filtration Rate 86 ML/MIN Troponin I LESS THAN 0.02 NG/ML Lactic Acid Level 0.7 mmol/L MDM Medical Decision Making Medical Screen Exam Complete: Yes Emergency Medical Condition: Yes Medical Record Reviewed: Yes (this patient was seen here in September following a syncopal event. He had an echo which showed an EF of 50-55%. It showed mild concentric LVH. It showed aortic valve regurgitation. He subsequently had a loop recorder placed.) Interpretation(s) EKG shows a paced rhythm. Differential Diagnosis Differential diagnosis of weakness includes but is not limited to infection, CVA , electrolyte disturbance, renal failure, hypoglycemia, UTI, ACS, acute blood loss Narrative Course This patient presents with the chief complaint of weakness and fatigue associated with a cough which is productive of sputum and which is associated with subjective fevers and chills. In addition, he is complaining with a palpable mass on his left anterio-lateral chest wall. He is status post AVR and pacemaker in October. The most likely etiology of his weakness/fatigue, cough and subjective fever is a respiratory infection. Labs are pending including blood cultures and lactic acid level. CT for PE is also pending. His chest pain is pleuritic. CBC & BMP Diagram 02/02/17 19:05 Calcium Level 9.2, Magnesium Level 1.9 trop < 0.[address] for PE: 1. Negative for pulmonary embolus. 2. Trace left pleural effusion and pericardial effusion. 3. Previous median sternotomy and aortic valve replacement. Pacer leads in right atrium and right ventricle. Diagnosis Primary Impression: Fatigue Qualified Codes: R53.83 - Other fatigue Additional Impression: Mass of chest wall, left Patient Instructions: Fatigue (DC), General Instructions Additional Instructions: See your primary care doctor if symptoms continue. Disposition: 01 DISCHARGE HOME Condition: Stable Florecita Colon MD Feb 02, 2017 19:18
[2017-02-02 19:20] LABS: AUTOMATED NEUTROPHIL # 11.2 TH/MM3 (1.8-7.7); BASOPHIL # 0.4 TH/MM3 (0-0.2); BASOPHIL % 2.6 % (0.0-2.0); EOSINOPHIL # 0.1 TH/MM3 (0-0.4); EOSINOPHIL % 0.4 % (0.0-4.0); HEMATOCRIT 42.7 % (39.0-51.0); MEAN CELL VOLUME 83.2 FL (80.0-100.0); MEAN CORPUSCULAR HEMOGLOBIN 27.2 PG (27.0-34.0); MEAN CORPUSCULAR HGB CONC 32.7 % (32.0-36.0); MONO % 6.2 % (0.0-8.0); NEUT % 76.8 % (16.0-70.0); PLATELET COUNT 264 TH/MM3 (150-450); RED BLOOD COUNT 5.14 MIL/MM3 (4.50-5.90); RED CELL DISTRIBUTION WIDTH 13.1 % (11.6-17.2); WHITE BLOOD COUNT 14.6 TH/MM3 (4.0-11.0)
[2017-02-02 19:21] LABS: CHLORIDE 103 MEQ/L (98-107); POTASSIUM 3.6 MEQ/L (3.5-5.1); SODIUM (NA) 138 MEQ/L (136-145)
[2017-02-02 19:23] LABS: ANION GAP 10 MEQ/L (5-15); MAGNESIUM 1.9 MG/DL (1.5-2.5)
[2017-02-02 19:24] LABS: BLOOD UREA NITROGEN 9 MG/DL (7-18)
[2017-02-02 19:25] LABS: HEMO FLAGS DIFF FINAL
[2017-02-02 19:26] LABS: INTERNATIONAL NORMALIZED RATIO 2.4 RATIO; PROTHROMBIN TIME - PATIENT 27.5 SEC (9.8-11.6)
[2017-02-02 19:27] LABS: GLOMERULAR FILTRATION RATE 86 ML/MIN (>89)
[2017-02-02 19:53] VITALS: BP 152/100; PULSE 96; RESP 18; O2SAT 97
[2017-02-02] MEDS ORDERED: IOHEXOL 350 MG/ML 10 ML VIAL (for RAD DIAG) IVCONTRAST ONE (20:00)
--- NOTE | 2017-02-02 20:32 | RADRPT ---
EXAM DATE/TIME: 02/02/2017 19:34 [facility] COMPARISON: No previous studies available for comparison. INDICATIONS : Left sided chest pain and fatigue. IV CONTRAST: 75 cc Omnipaque 350 (iohexol) IV RADIATION DOSE: 18.04 CTDIvol (mGy) ; Patient positioning MEDICAL HISTORY : Hypertension. SURGICAL HISTORY : Pacemaker. ENCOUNTER: Initial ACUITY: 1 day PAIN SCALE: 10/10 LOCATION: Left chest TECHNIQUE: Volumetric scanning of the chest was performed using a pulmonary embolism protocol MIP images were re constructed. Using automated exposure control and adjustment of the mA and/or kV according to patien t size, radiation dose was kept as low as reasonably achievable to obtain optimal diagnostic quality images. DICOM format image data is available electronically for review and comparison. Follow-up recommendations for detected pulmonary nodules are based at a minimum on nodule size and pa tient risk factors according to Fleischner Society Guidelines. FINDINGS: There is dependent atelectasis in both lungs with trace left pleural effusion and small pericardial e ffusion. Previous pacer leads in right atrium, right ventricle and also aortic valve replacement. No filling defects in pulmonary arteries to suggest embolic disease. No acute findings in the upper a bdomen. CONCLUSION: 1. Negative for pulmonary embolus. 2. Trace left pleural effusion and pericardial effusion. 3. Previous median sternotomy and aortic valve replacement. Pacer leads in right atrium and right geremias tricle. Lb Gonzales MD on February 02, 2017 at 20:26 Board Certified Radiologist. This report was verified electronically.
[2017-02-02 20:43] VITALS: BP 150/102; PULSE 90; RESP 18; O2SAT 99
--- NOTE | 2017-02-03 07:08 | EKG ---
Date Performed: 02/02/2017 Time Performed: 19:12:28 PTAGE: 41 years EKG: ELECTRONIC VENTRICULAR PACEMAKER ABNORMAL RHYTHM ECG PREVIOUS TRACING : 10/02/2016 21.53 Compared to previous tracing, ventricular pacing is now magdalena dent. DOCTOR: Scar Bennett Interpretating Date/Time 02/03/2017 07:06:24
[2017-02-03] MEDS ORDERED: METO25TA3 PO (13:38)
== END 2017-02-02 21:04 | disposition home or self-care (01) ==
LOC: PHED 18:19
DX: R53.83 Other fatigue (principal); R22.2 Localized swelling, mass and lump, trunk; R07.9 Chest pain, unspecified; R06.02 Shortness of breath; R05 Cough; R09.3 Abnormal sputum; R50.9 Fever, unspecified; J90 Pleural effusion, not elsewhere classified; I31.3 Pericardial effusion (noninflammatory); R94.31 Abnormal electrocardiogram [ECG] [EKG]; I10 Essential (primary) hypertension; Z95.0 Presence of cardiac pacemaker; Z79.01 Long term (current) use of anticoagulants; Z79.899 Other long term (current) drug therapy; Z86.79 Personal history of other diseases of the circulatory system; Z86.69 Personal history of other diseases of the nervous system and sense organs
CPT/HCPCS: 71275; 80048; 83605; 83735; 84484; 85025; 85610; 85730; 87040; 93005; 96374; 99285; J2270; Q9967

== ENCOUNTER 2017-02-03 11:23 | Observation (INO) | payer MEDICARE ==
[2017-02-03] VITALS (10 sets, daily range): BP systolic 107–135; BP diastolic 78–89; PULSE 81–108; RESP 16–20; TEMP 96.8–98.6; O2SAT 97–100
[~2017-02-03 11:23] MED LIST changes: +ASPI81CH7 CHEW; -WALKER WHEELS/F1 MIS; +WARF-21 PO; +WARF-22 PO
[2017-02-03] MEDS ORDERED: SODIUM CHLORID 0.9% 500 ML INJ 500 ML IV ONE (11:45)
[2017-02-03] MEDS ORDERED: SODIUM CHLORIDE 0.9% FLUSH 10 ML FLUSH IVF PRN (11:45)
[2017-02-03] MEDS ORDERED: MORPHINE SULFATE 4 MG/ML INJ IV PUSH ONE (11:45)
--- NOTE | 2017-02-03 11:48 | PD ---
HPI Chief Complaint: Chest Pain Time Seen by Provider: 11:28 Travel History International Travel<30 days: No Contact w/Intl Traveler<30days: No Traveled to known affect area: No History of Present Illness HPI 41 yo M c/o pleuritic cp since yesterday associated with pain in the left neck. He was seen and evaluated here and workup including troponin and CT pulmonary angiogram negative. The patient underwent aortic valve replacement and PM device placement. The patient device was placed here in the bowel replacement was done in [place], by Dr Nice. He takes Coumadin daily. 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 A coronary catheterization was performed prior to the aortic valve replacement in his coronaries were clean. PFSH Past Medical History Hx Anticoagulant Therapy: Yes (WARFARIN AND BABY ASA) Blood Disorders: No Heart Rhythm Problems: Yes Cancer: No Cardiac Catheterization: Yes Cardiovascular Problems: Yes (HTN) High Cholesterol: No Chest Pain: No Congestive Heart Failure: No Diabetes: No Diminished Hearing: No Endocrine: No Genitourinary: No Hypertension: Yes Immune Disorder: No Musculoskeletal: No Neurologic: Yes Psychiatric: No Reproductive: No Respiratory: No Past Surgical History Cardiac Surgery: Yes (PACER, VALVE REPLACEMENT) Pacemaker: Yes Other Surgery: Yes (CARPAL TUNNEL RIGHT WRIST, LIPOMA REMOVED) Social History Alcohol Use: No Tobacco Use: No Substance Use: No Allergies-Medications (Allergen,Severity, Reaction): Coded Allergies: ketorolac (Verified Allergy, Severe, Hallucinations, 02/03/17) latex (Unverified Allergy, Intermediate, 02/03/17) Reported Meds & Prescriptions Reported Meds & Active Scripts Active Reported Metoprolol Tartrate 25 Mg Tab 25 Mg PO BID Warfarin 7.5 Mg Tab 7.5 Mg PO DIRECTED Warfarin 10 Mg Tab 11.5 Mg PO ON MON Aspirin Children's (Aspirin) 81 Mg Chew 81 Mg CHEW DAILY Review of Systems Except as stated in HPI: all other systems reviewed are Neg General / Constitutional: No: Fever Cardiovascular: Positive: Chest Pain or Discomfort Respiratory: Positive: Shortness of Breath Physical Exam Narrative GENERAL: 41 yo M, well-nourished well-developed mild distress SKIN: Warm and dry. HEAD: Atraumatic. Normocephalic. EYES: Pupils equal and round. No scleral icterus. No injection or drainage. ENT: No nasal bleeding or discharge. Mucous membranes pink and moist. NECK: Trachea midline. No JVD. CARDIOVASCULAR: Regular. Rate approximately 100. RESPIRATORY: No accessory muscle use. Clear to auscultation. Breath sounds equal bilaterally. GASTROINTESTINAL: Abdomen soft, non-tender, nondistended. Hepatic and splenic margins not palpable. MUSCULOSKELETAL: Extremities without clubbing, cyanosis, or edema. No obvious deformities. NEUROLOGICAL: Awake and alert. No obvious cranial nerve deficits. Motor grossly within normal limits. Five out of 5 muscle strength in the arms and legs. Normal speech. PSYCHIATRIC: Appropriate mood and affect; insight and judgment normal. Data Data Last Documented VS Vital Signs Date Time Temp Pulse Resp B/P (MAP) Pulse Ox O2 Delivery O2 Flow Rate FiO2 02/03/17 13:35 83 18 129/85 (100) 100 02/03/17 11:49 2.00 02/03/17 11:36 98.1 Orders Orders Electrocardiogram (02/03/17 11:41) B-Type Natriuretic Peptide (02/03/17 11:41) Ckmb (Isoenzyme) Profile (02/03/17 11:41) Complete Blood Count With Diff (02/03/17 11:41) Comprehensive Metabolic Panel (02/03/17 11:41) Magnesium (Mg) (02/03/17 11:41) Prothrombin Time / Inr (Pt) (02/03/17 11:41) Act Partial Throm Time (Ptt) (02/03/17 11:41) Troponin I (02/03/17 11:41) Lipase (02/03/17 11:41) Chest, Single Ap (02/03/17 11:41) Ecg Monitoring (02/03/17 11:41) Bilateral Bp Monitoring (02/03/17 11:41) Iv Access Insert/Monitor (02/03/17 11:41) Oximetry (02/03/17 11:41) Oxygen Administration (02/03/17 11:41) Morphine Inj (Morphine Inj) (02/03/17 11:45) Sodium Chloride 0.9% Flush (Ns Flush) (02/03/17 11:45) Sodium Chlorid 0.9% 500 Ml Inj (Ns 500 M (02/03/17 11:45) Admit Order (Ed Use Only) (02/03/17 13:49) Labs Laboratory Tests Test 02/03/17 11:45 White Blood Count 15.5 TH/MM3 Red Blood Count 5.32 MIL/MM3 Hemoglobin 14.6 GM/DL Hematocrit 43.9 % Mean Corpuscular Volume 82.5 FL Mean Corpuscular Hemoglobin 27.4 PG Mean Corpuscular Hemoglobin Concent 33.2 % Red Cell Distribution Width 13.1 % Platelet Count 305 TH/MM3 Mean Platelet Volume 9.7 FL Neutrophils (%) (Auto) 71.7 % Lymphocytes (%) (Auto) 15.3 % Monocytes (%) (Auto) 8.3 % Eosinophils (%) (Auto) 0.9 % Basophils (%) (Auto) 3.8 % Neutrophils # (Auto) 11.1 TH/MM3 Lymphocytes # (Auto) 2.4 TH/MM3 Monocytes # (Auto) 1.3 TH/MM3 Eosinophils # (Auto) 0.1 TH/MM3 Basophils # (Auto) 0.6 TH/MM3 CBC Comment DIFF FINAL Differential Comment Prothrombin Time 28.1 SEC Prothromb Time International Ratio 2.4 RATIO Activated Partial Thromboplast Time 42.5 SEC Blood Urea Nitrogen 10 MG/DL Creatinine 1.40 MG/DL Random Glucose 135 MG/DL Total Protein 8.4 GM/DL Albumin 4.1 GM/DL Calcium Level 9.2 MG/DL Magnesium Level 2.0 MG/DL Alkaline Phosphatase 87 U/L Aspartate Amino Transf (AST/SGOT) 13 U/L Alanine Aminotransferase (ALT/SGPT) 21 U/L Total Bilirubin 1.3 MG/DL Sodium Level 137 MEQ/L Potassium Level 3.4 MEQ/L Chloride Level 101 MEQ/L Carbon Dioxide Level 26.6 MEQ/L Anion Gap 9 MEQ/L Estimat Glomerular Filtration Rate 56 ML/MIN Total Creatine Kinase 66 U/L Troponin I LESS THAN 0.02 NG/ML B-Type Natriuretic Peptide 112 PG/ML Lipase 90 U/L MDM Medical Decision Making Medical Screen Exam Complete: Yes Emergency Medical Condition: Yes Medical Record Reviewed: Yes Differential Diagnosis NSTEMI, unstable angina, coronary vasospasm, PE, PTX, aortic dissection, pericarditis, myocarditis, endocarditis, PNA, esophageal disease, aneurysm, musculoskeletal etiologies, anxiety, cocaine/sympathomimetic abuse Narrative Course CBC & BMP Diagram 02/03/17 11:45 Total Protein 8.4 H, Albumin 4.1, Calcium Level 9.2, Magnesium Level 2.0, Alkaline Phosphatase 87, Aspartate Amino Transf (AST/SGOT) 13 L, Alanine Aminotransferase (ALT/SGPT) 21, Total Bilirubin 1.3 H EKG: electronic ventricular pacemaker, rate 110, morphology similar to priors There is mild RENZO. d/w Cardiology, echo, serial tn, keep in HPO reassessment 0130: pt reports improved cough and decreased pain d/w Sarthak Sanches for [facility], admit to Dr Deutsch Diagnosis Primary Impression: Chest pain Qualified Codes: R07.9 - Chest pain, unspecified Additional Impression: RENZO (acute kidney injury) Admitting Information Admitting Physician Requests: Admit Semaj Soto MD Feb 03, 2017 11:48
[2017-02-03 11:50] LABS: AUTOMATED NEUTROPHIL # 11.1 TH/MM3 (1.8-7.7); BASOPHIL # 0.6 TH/MM3 (0-0.2); BASOPHIL % 3.8 % (0.0-2.0); EOSINOPHIL # 0.1 TH/MM3 (0-0.4); EOSINOPHIL % 0.9 % (0.0-4.0); HEMATOCRIT 43.9 % (39.0-51.0); HEMO FLAGS DIFF FINAL; LYMPH % 15.3 % (9.0-44.0); LYMPHOCYTE # 2.4 TH/MM3 (1.0-4.8); MEAN CELL VOLUME 82.5 FL (80.0-100.0); MEAN CORPUSCULAR HEMOGLOBIN 27.4 PG (27.0-34.0); MEAN CORPUSCULAR HGB CONC 33.2 % (32.0-36.0); MONO % 8.3 % (0.0-8.0); NEUT % 71.7 % (16.0-70.0); PLATELET COUNT 305 TH/MM3 (150-450); RED BLOOD COUNT 5.32 MIL/MM3 (4.50-5.90); RED CELL DISTRIBUTION WIDTH 13.1 % (11.6-17.2); WHITE BLOOD COUNT 15.5 TH/MM3 (4.0-11.0)
--- NOTE | 2017-02-03 12:00 | RADRPT ---
EXAM DATE/TIME: 02/03/2017 11:49 [facility] COMPARISON: CHEST SINGLE AP, October 02, 2016, 22:30. INDICATIONS : Chest pain 12 weeks post open heart. MEDICAL HISTORY : Hypertension. SURGICAL HISTORY : Pacemaker. ENCOUNTER: Initial ACUITY: 1 day PAIN SCORE: 10/10 LOCATION: Left upper chest FINDINGS: A single view of the chest demonstrates the lungs to be symmetrically aerated without evidence of mas s, infiltrate or effusion. History of bypass, pacemaker and event recorder. Mild compensated cardio megaly CONCLUSION: Mild compensated cardiomegaly. Joao Garcia MD FACR on February 03, 2017 at 11:58 Board Certified Radiologist. This report was verified electronically.
[2017-02-03 12:04] LABS: CHLORIDE 101 MEQ/L (98-107); POTASSIUM 3.4 MEQ/L (3.5-5.1); SODIUM (NA) 137 MEQ/L (136-145)
[2017-02-03 12:08] LABS: ANION GAP 9 MEQ/L (5-15); APTT (PATIENT) 42.5 SEC (24.3-30.1); BICARBONATE 26.6 MEQ/L (21.0-32.0); BLOOD UREA NITROGEN 10 MG/DL (7-18); INTERNATIONAL NORMALIZED RATIO 2.4 RATIO; PROTHROMBIN TIME - PATIENT 28.1 SEC (9.8-11.6)
[2017-02-03 12:11] LABS: ALT (GPT) 21 U/L (12-78); AST (GOT) 13 U/L (15-37); GLOMERULAR FILTRATION RATE 56 ML/MIN (>89)
[2017-02-03 12:12] LABS: TOTAL BILIRUBIN ADULT 1.3 MG/DL (0.2-1.0)
[2017-02-03 12:13] LABS: ALKALINE PHOSPHATASE 87 U/L (45-117)
[2017-02-03 12:35] LABS: CREATINE KINASE 66 U/L (39-308)
[2017-02-03] MEDS ORDERED: METO25TA3 PO (13:38)
[2017-02-03] MEDS ORDERED: ACETAMINOPHEN 500 MG CPLT PO PRN (14:00)
[2017-02-03] MEDS ORDERED: NITROGLYCERIN 0.4 MG SL 25 TABS/BTL SL PRN (14:00)
[2017-02-03] MEDS ORDERED: SODIUM CHLORIDE 0.9% FLUSH 10 ML FLUSH IV FLUSH PRN (14:00)
[2017-02-03] MEDS ORDERED: ACETAMINOPHEN/HYDROcodone 325 MG/5 MG TAB PO PRN (14:00)
[2017-02-03] MEDS: PANTOPRAZOLE SOD 40 MG DELAYED RELEASE TAB PO SCH (14:17)
--- NOTE | 2017-02-03 14:56 | PD.CONS ---
HPI Consult Requested By Reason for Consult Chest pain Primary Care Physician Bryant Kimbrough MD History of Present Illness I reviewed hospital records on this patient. He is a 41-year-old white gentleman who was seen in September of this year for recurrent syncope. He underwent loop recorder placement. He was seen in [place] in October. 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 . He urgently postoperatively had a [employer] pacemaker placed. He and his state he is doing very well and had an echocardiogram 4-6 weeks afterwards which looked great. Over the last 5 days he's had severe left-sided pleuritic chest pain throughout his left chest radiating up into his left shoulder and neck. He notes fatigue with this and perhaps minimal dyspnea but no other cardiac symptoms. The pain is always there to some extent. He has no fevers, chills or sputum production or palpitations or syncope. CT angiogram done in the emergency room yesterday showed a very small left pleural and pericardial effusion with postoperative changes and no evidence for pulmonary embolus. Review of Systems Consitutional: COMPLAINS OF: Fatigue Eyes: DENIES: Amaurosis Fugax HEENT: DENIES: Lightheadedness Respiratory: COMPLAINS OF: Shortness of breath, DENIES: Cough, Snoring Cardiovascular: COMPLAINS OF: Chest pain Psychiatric: DENIES: Anxiety, Depression Hematologic: COMPLAINS OF: Bruising tendencies Past Family Social History Allergies: Coded Allergies: ketorolac (Verified Allergy, Severe, Hallucinations, 02/03/17) latex (Unverified Allergy, Intermediate, 02/03/17) Past Medical History Cardiac as above Past Surgical History Multiple lipomas Heart surgery as above Reported Medications Reported Meds & Active Scripts Active Reported Metoprolol Tartrate 25 Mg Tab 25 Mg PO BID Warfarin 7.5 Mg Tab 7.5 Mg PO DIRECTED Warfarin 10 Mg Tab 11.5 Mg PO ON MON Aspirin Children's (Aspirin) 81 Mg Chew 81 Mg CHEW DAILY Active Ordered Medications Current Medications Medications (Trade) Dose Ordered Sig/Vinnie Route Start Time Stop Time Status Last Admin (NS Flush) 2 ml BID IV FLUSH 02/03/17 21:00 (NS Flush) 2 ml UNSCH PRN IV FLUSH 02/03/17 14:00 (Nitrostat Sl) 0.4 mg Q5M PRN SL 02/03/17 14:00 (Tylenol) 500 mg Q4H PRN PO 02/03/17 14:00 (Morphine Inj) 2 mg Q3HR PRN IV PUSH 02/03/17 14:00 (Protonix) 40 mg DAILY PO 02/03/17 14:00 02/03/17 14:17 (Restoril) 15 mg HS PRN PO 02/03/17 21:00 (Heparin Inj) 5,000 units Q12H SQ 02/03/17 18:00 ([place] 5-325 Mg) 1 tab Q6H PRN PO 02/03/17 14:00 Family History Noncontributory Social History The patient is and stopped smoking and drinking 5-10 years ago Physical Exam Vital Signs Vital Signs Date Time Temp Pulse Resp B/P (MAP) Pulse Ox O2 Delivery O2 Flow Rate FiO2 02/03/17 14:19 81 20 123/83 (96) 100 02/03/17 13:35 83 18 129/85 (100) 100 02/03/17 12:52 88 20 121/88 (99) 100 132/88 (103) 02/03/17 12:41 90 20 107/80 (89) 99 02/03/17 11:49 98 02/03/17 11:49 98 2.00 02/03/17 11:36 98.1 108 20 135/78 (97) 97 Physical Exam CONSTITUTIONAL: A well-developed, well-nourished patient in no apparent distress. EYES: Conjunctiva normal. Sclera nonicteric. Eyelids normal. No xanthelasma. HEENT: Oral mucosa normal without pallor or cyanosis. NECK: JVD less than or equal to 5 cm of water. RESPIRATORY: Breathing is unlabored without accessory muscle use. Normal breath sounds. No wheezes, rales or rubs present. CARDIOVASCULAR: Normal point of maximal impulse. No cardiac thrill present. Regular rate and rhythm. No murmurs, gallops, rubs or clicks present. [place] aortic valve closure sound. PULSES: Carotid arteries: Normal pulses bilaterally without bruits. Palmar arteries: Radial pulses 2+ bilaterally Abdominal aorta: Aortic pulses normal without bruits or enlargement. Femoral arteries: 2+ bilaterally. No bruits present. Pedal pulses: 1-2+ bilaterally PERIPHERAL CIRCULATION: No cyanosis, clubbing, edema or varicosities present. GASTROINTESTINAL: Normal bowel sounds. Nontender without rigidity or guarding. No masses present. No hepatomegaly. Liver is nontender to palpation and spleen is nonpalpable. Digital rectal exam-not indicated for cardiovascular exam. MUSCULOSKELETAL: No kyphosis or scoliosis present. The patient is not ambulated. Able to undergo rehabilitation. SKIN: Skin turgor is normal. No rashes. NEUROLOGIC: Grossly oriented to person, place and time. Normal mood and appropriate affect. Laboratory Laboratory Tests Test 02/03/17 11:45 White Blood Count 15.5 Red Blood Count 5.32 Hemoglobin 14.6 Hematocrit 43.9 Mean Corpuscular Volume 82.5 Mean Corpuscular Hemoglobin 27.4 Mean Corpuscular Hemoglobin Concent 33.2 Red Cell Distribution Width 13.1 Platelet Count 305 Mean Platelet Volume 9.7 Neutrophils (%) (Auto) 71.7 Lymphocytes (%) (Auto) 15.3 Monocytes (%) (Auto) 8.3 Eosinophils (%) (Auto) 0.9 Basophils (%) (Auto) 3.8 Neutrophils # (Auto) 11.1 Lymphocytes # (Auto) 2.4 Monocytes # (Auto) 1.3 Eosinophils # (Auto) 0.1 Basophils # (Auto) 0.6 CBC Comment DIFF FINAL Differential Comment Prothrombin Time 28.1 Prothromb Time International Ratio 2.4 Activated Partial Thromboplast Time 42.5 Blood Urea Nitrogen 10 Creatinine 1.40 Random Glucose 135 Total Protein 8.4 Albumin 4.1 Calcium Level 9.2 Magnesium Level 2.0 Alkaline Phosphatase 87 Aspartate Amino Transf (AST/SGOT) 13 Alanine Aminotransferase (ALT/SGPT) 21 Total Bilirubin 1.3 Sodium Level 137 Potassium Level 3.4 Chloride Level 101 Carbon Dioxide Level 26.6 Anion Gap 9 Estimat Glomerular Filtration Rate 56 Total Creatine Kinase 66 Troponin I LESS THAN 0.02 B-Type Natriuretic Peptide 112 Lipase 90 Result Diagram: 02/03/17 1145 02/03/[address] angiogram from yesterday as above Last 48 hours Impressions Chest X-Ray 02/03/17 1141 Signed Impressions: Service Date/Time: Friday, February 03, 2017 11:49 - CONCLUSION: Mild compensated cardiomegaly. Joao Garcia MD FACR Assessment and Plan Assessment and Plan Problems: Left-sided pleuritic chest pain Status post prosthetic aortic valve replacement Pacemaker placement Recommendations: There is no indication for doing serial cardiac enzymes at this point in time given the duration and atypical nature. Continue warfarin to an INR of 2-3 Endocarditis prophylaxis. Continue metoprolol We will order an echocardiogram. Emergency room has called to the echocardiograph technician and we will have this wet read. My partner, Dr. Soto will be reading this and will call me if there is anything abnormal. 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 I do not want to give nonsteroidal anti-inflammatory drugs as he is already on warfarin and aspirin and I do not want to give steroids because of possible increased risk of recurrence. I will start him on colchicine. Further recommendations will follow. Bernardino Parra MD Feb 03, 2017 14:56
[2017-02-03] MEDS ORDERED: POTASSIUM CHLORIDE 20 MEQ CONTROLLED RELEASE TAB PO ONE (15:30)
--- NOTE | 2017-02-03 15:57 | EKG ---
Date Performed: 02/03/2017 Time Performed: 11:26:54 PTAGE: 41 years EKG: Sinus rhythm with atrial synchronous pacemaker. Compared to prior electrocardiogram, rate has increased. PREVIOUS TRACING : 02/02/2017 19.12 DOCTOR: Bernardino Parra Interpretating Date/Time 02/03/2017 15:55:59
[2017-02-03] MEDS ORDERED: DO NOT ADM ANY ANTICOAGULANT DRUGS OTHER PRN (16:00)
[2017-02-03] MEDS ORDERED: WARFARIN SOD 5 MG TAB PO SCH (16:00)
[2017-02-03] MEDS: MORPHINE SULFATE 4 MG/ML INJ IV PUSH PRN ×3 (16:31→23:02)
--- NOTE | 2017-02-03 17:01 | HHI.HP ---
[facility] Primary Care Physician Bryant Kimbrough MD Admission Diagnosis Chest Pain; RENZO; L Pleural Effusion Diagnoses: (1) Acute renal failure superimposed on stage 2 chronic kidney disease Diagnosis: Principal (2) Chest pain Diagnosis: Principal Chief Complaint: Chest pain Travel History International Travel<30 Days: No Contact w/Intl Traveler <30 Da: No Traveled to Known Affected Are: No History of Present Illness Written by Sarthak Moses, acting as scribe for Dr. Deutsch on 02/03/17 at 16:48. 41 year-old male with rather complex cardiac history to include aortic valve replacement, pacemaker placement, chronic sinusitis, hypertension, chronic migraine cephalgia, anxiety who read presented to the hospital because of chest discomfort. Patient indicates that his chest pain started yesterday with associated weakness and fatigue. He came to emergency department and had workup done with CT of chest that did show trace of pleural effusion, pericardial effusion. Patient was discharged home with outpatient follow-up with his primary medical doctor, however patient states that his pain did not improve. He had chest pain on the left side which remained constant throughout the night. States that he is having radiation up into his neck with associated diaphoresis. Patient states that he has had a cough and whenever he does cough it causes a sharp pain in his left side with associated shortness of breath. Denies any diaphoresis, lightheadedness, dizziness. Because of chest pain never went away and he was still symptomatic he came back to the hospital for evaluation. ER physician contacted trim and burr operator who recommended the patient be observed in the hospital with cardiac enzymes, echocardiogram. Patient does have rather complex history with the open heart surgery 12 weeks ago with aortic valve replacement and pacemaker placement with Dr. Nice in [place]. He has had recent admission with echocardiogram, Loop recorder implantation, full workup for syncopal episode. Patient indicates that he has had previous cardiac catheterization prior to his aortic valve replacement and was told that he had completely clean vessels. The time evaluating the patient he is still experiencing some chest discomfort. He is with a dry nonproductive cough causing pain to his left side. He had recently been diagnosed with sinusitis and took amoxicillin for 1 month - since then he has been off antibiotics for 3 weeks. He has been evaluated by ENT again and is supposed to start back on antibiotics at this time - they want to start doxycycline but he was unable to afford it and wrote amoxicillin again which she has not picked up. Review of Systems Constitutional: COMPLAINS OF: Fatigue Respiratory: COMPLAINS OF: Shortness of breath Cardiovascular: COMPLAINS OF: Chest pain Except as stated in HPI: all other systems reviewed are Neg Past Family Social History Past Medical History Hypertension Anxiety Migraine cephalgia Past Surgical History Aortic valve replacement Pacemaker placement Loop recorder placement Right wrist carpal tunnel surgery Multiple lipomas removed from chest, arms, back, legs Reported Medications Reported Meds & Active Scripts Active Reported Metoprolol Tartrate 25 Mg Tab 25 Mg PO BID Warfarin 7.5 Mg Tab 7.5 Mg PO DIRECTED Warfarin 10 Mg Tab 11.5 Mg PO ON MON Aspirin Children's (Aspirin) 81 Mg Chew 81 Mg CHEW DAILY Allergies: Coded Allergies: ketorolac (Verified Allergy, Severe, Hallucinations, 02/03/17) latex (Unverified Allergy, Intermediate, 02/03/17) Family History Reviewed is significant for diabetes, heart disease, COPD Social History Patient quit smoking 5 years ago, quit drinking 10 years ago, denies any illicit drugs Physical Exam Vital Signs Vital Signs Date Time Temp Pulse Resp B/P (MAP) Pulse Ox O2 Delivery O2 Flow Rate FiO2 02/03/17 15:27 02/03/17 14:19 81 20 123/83 (96) 100 02/03/17 13:35 83 18 129/85 (100) 100 02/03/17 12:52 88 20 121/88 (99) 100 132/88 (103) 02/03/17 12:41 90 20 107/80 (89) 99 02/03/17 11:49 98 02/03/17 11:49 98 2.00 02/03/17 11:36 98.1 108 20 135/78 (97) 97 Physical Exam GENERAL: Well-developed, well-nourished, in no acute distress. alert and orientated HEENT: Head is normocephalic without any lesions or masses noted. Facial features are symmetric. Eyes: Extraocular muscles are intact. Conjunctivae were clear. Oropharyngeal: Pharynx without any erythema edema. Tongue is midline without deviation. Buccal mucosa is moist without any masses or lesions Nose: no obvious drainage noted, substantial intranasal hairs NECK: No JVD CARDIAC: Regular rhythm, regular rate. S1/S2 are heard. Audible crisp click noted. No murmurs gallops or rubs. LUNGS: Clear to auscultation bilaterally. No wheeze, rhonchi or rales. No use of accessory muscles on inspiration or expiration. Chest discomfort on deep inspiration ABDOMEN: Soft, nontender. Nondistended. Bowel sounds heard in all 4 quadrants. No organomegaly or masses. Negative rebound, negative guarding EXTREMITIES: No edema, pulses are equal bilaterally. No cyanosis or clubbing MSK: grossly ROM of all 4 extremities Skin: Surgical scars on anterior chest NEUROLOGY: Mood and affect appear appropriate. Laboratory Laboratory Tests Test 02/03/17 11:45 White Blood Count 15.5 Red Blood Count 5.32 Hemoglobin 14.6 Hematocrit 43.9 Mean Corpuscular Volume 82.5 Mean Corpuscular Hemoglobin 27.4 Mean Corpuscular Hemoglobin Concent 33.2 Red Cell Distribution Width 13.1 Platelet Count 305 Mean Platelet Volume 9.7 Neutrophils (%) (Auto) 71.7 Lymphocytes (%) (Auto) 15.3 Monocytes (%) (Auto) 8.3 Eosinophils (%) (Auto) 0.9 Basophils (%) (Auto) 3.8 Neutrophils # (Auto) 11.1 Lymphocytes # (Auto) 2.4 Monocytes # (Auto) 1.3 Eosinophils # (Auto) 0.1 Basophils # (Auto) 0.6 CBC Comment DIFF FINAL Differential Comment Prothrombin Time 28.1 Prothromb Time International Ratio 2.4 Activated Partial Thromboplast Time 42.5 Blood Urea Nitrogen 10 Creatinine 1.40 Random Glucose 135 Total Protein 8.4 Albumin 4.1 Calcium Level 9.2 Magnesium Level 2.0 Alkaline Phosphatase 87 Aspartate Amino Transf (AST/SGOT) 13 Alanine Aminotransferase (ALT/SGPT) 21 Total Bilirubin 1.3 Sodium Level 137 Potassium Level 3.4 Chloride Level 101 Carbon Dioxide Level 26.6 Anion Gap 9 Estimat Glomerular Filtration Rate 56 Total Creatine Kinase 66 Troponin I LESS THAN 0.02 B-Type Natriuretic Peptide 112 Lipase 90 Result Diagram: 02/03/17 1145 02/03/17 1145 Imaging Last Impressions Chest X-Ray 02/03/17 1141 Signed Impressions: Service Date/Time: Friday, February 03, 2017 11:49 - CONCLUSION: Mild compensated cardiomegaly. Joao Garcia MD FACR Caprini VTE Risk Assessment Caprini VTE Risk Assessment: Mod/High Risk (score >= 2) Caprini Risk Assessment Model Point Value = 1 Point Value = 2 Point Value = 3 Point Value = 5 Age 41-60 Minor surgery BMI > 25 kg/m2 Swollen legs Varicose veins or History of unexplained or recurrent spontaneous Oral contraceptives or hormone replacement Sepsis (< 1 month) Serious lung disease, including pneumonia (< 1 month) Abnormal pulmonary function Acute myocardial infarction Congestive heart failure (< 1 month) History of inflammatory bowel disease Medical patient at bed rest Age 61-74 Arthroscopic surgery Major open surgery (> 45 min) Laparoscopic surgery (> 45 min) Malignancy Confined to bed (> 72 hours) Immobilizing plaster cast Central venous access Age >= 75 History of VTE Family history of VTE Factor V Leiden Prothrombin [id number] Lupus anticoagulant Anticardiolipin antibodies Elevated serum homocysteine Heparin-induced thrombocytopenia Other congenital or acquired thrombophilia Stroke (< 1 month) Elective arthroplasty Hip, pelvis, or leg fracture Acute spinal cord injury (< 1 month) Prophylaxis Regimen Total Risk Factor Score Risk Level Prophylaxis Regimen 0-1 Low Early ambulation 2 Moderate Order ONE of the following: *Sequential Compression Device (SCD) *Heparin 5000 units SQ BID 3-4 Higher Order ONE of the following medications: *Heparin 5000 units SQ TID *Enoxaparin/Lovenox 40 mg SQ daily (WT < 150 kg, CrCl > 30 mL/min) *Enoxaparin/Lovenox 30 mg SQ daily (WT < 150 kg, CrCl > 10-29 mL/min) *Enoxaparin/Lovenox 30 mg SQ BID (WT < 150 kg, CrCl > 30 mL/min) AND/OR *Sequential Compression Device (SCD) 5 or more Highest Order ONE of the following medications: *Heparin 5000 units SQ TID (Preferred with Epidurals) *Enoxaparin/Lovenox 40 mg SQ daily (WT < 150 kg, CrCl > 30 mL/min) *Enoxaparin/Lovenox 30 mg SQ daily (WT < 150 kg, CrCl > 10-29 mL/min) *Enoxaparin/Lovenox 30 mg SQ BID (WT < 150 kg, CrCl > 30 mL/min) AND *Sequential Compression Device (SCD) Assessment and Plan Problem List: (1) RENZO (acute kidney injury) ICD Code: N17.9 - Acute kidney failure, unspecified Status: Acute (2) Chest pain ICD Code: R07.9 - Chest pain, unspecified Status: Acute Assessment and Plan Chest pain, CT scan does indicate pleural effusion and pericardial effusion Cardiac enzymes are unremarkable at this time EKG shows sinus rhythm with atrial synchronous pacemaker Simulation Technician against trending cardiac enzymes, obtaining echocardiogram. 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 Started colchicine per cards. Acute renal failure superimposed on chronic kidney disease stage II Continue monitor renal function, AM BMP Avoid nephrotoxins Aortic valve replacement Continue Coumadin, pharmacy consult Maintain INR 2 -3 Sinusitis starting doxycycline DVT prevention Patient is on Coumadin INR 2.4 Communicated with cardiology, who wants us to manage coumadin and home meds. This note was transcribed by deisy Moses. I, Manpreet Deutsch, personally performed the history, physical exam, and medical decision making; and confirmed the accuracy of information in the transcribed note. Authenticated by Manpreet Deutsch on 6:04 PM on 02/03/17. I independently reviewed the chest x-ray and see no acute infiltrates, note a pacemaker. Problem Qualifiers (1) Chest pain: Qualified Codes: R07.9 - Chest pain, unspecified Sarthak Moses Feb 03, 2017 17:01 Manpreet Deutsch MD Feb 03, 2017 18:10
[2017-02-03] MEDS ORDERED: HEPARIN SODIUM - SQ 10,000 UNITS/ML VIAL SQ SCH (18:00)
--- NOTE | 2017-02-03 19:42 | ECHRPT ---
Indication: cp CONCLUSIONS The left ventricular systolic function is low normal with an estimated ejection fraction in the rang e of 50- 55%. Trace mitral valve regurgitation. There is trace tricuspid valve regurgitation. The aortic mechanical valve is not well visualized, but leaflets appear to be moving well. No aortic valve or paravalvular regurgitation noted. No aortic valve stenosis noted. BP: / HR: Rhythm: Technical Quality:Fair FINDINGS LEFT VENTRICLE The left ventricular systolic function is low normal with an estimated ejection fraction in the rang e of 50- 55%. Normal left ventricular size. No regional wall motion abnormalities are present. RIGHT VENTRICLE Normal right ventricular size and systolic function. LEFT ATRIUM The left atrial size is normal. RIGHT ATRIUM The right atrial size is normal. ATRIAL SEPTUM Normal atrial septal thickness. AORTA The aortic root and proximal ascending aorta are not well visualized. MITRAL VALVE Structurally normal mitral valve. Trace mitral valve regurgitation. No mitral valve stenosis. AORTIC VALVE The aortic mechanical valve is not well visualized, but leaflets appear to be moving well. No aortic valve or paravalvular regurgitation noted. No aortic valve stenosis noted. TRICUSPID VALVE Structurally normal tricuspid valve. There is trace tricuspid valve regurgitation. PULMONARY VALVE The pulmonary valve is not well visualized. VESSELS The inferior vena cava is normal in size. PERICARDIUM No pericardial effusion. Tan Soto DO (Electronically Signed) Final Date:03 February 2017 19:40
[2017-02-03] MEDS ORDERED: METOPROLOL TARTRATE 25 MG TAB PO ONE (20:30)
[2017-02-03] MEDS ORDERED: TEMAZEPAM 15 MG CAP PO PRN (21:00)
[2017-02-03] MEDS ORDERED: METOPROLOL TARTRATE 25 MG TAB PO SCH (21:00)
--- NOTE | 2017-02-03 21:17 | EKG ---
Date Performed: 02/03/2017 Time Performed: 17:55:31 PTAGE: 41 years EKG: Normal Sinus rhythm ELECTRONIC VENTRICULAR PACEMAKER ABNORMAL RHYTHM ECG Compared to prior electrocardiogram, rate has d ecreased PREVIOUS TRACING : 02/03/2017 11.26 DOCTOR: Bernardino Parra Interpretating Date/Time 02/03/2017 21:16:24
[2017-02-03] MEDS: DOXYCYCLINE HYCLATE 100 MG TAB PO SCH (22:00)
[2017-02-03] MEDS: SODIUM CHLORIDE 0.9% FLUSH 10 ML FLUSH IV FLUSH SCH (22:00)
[2017-02-04 00:19] VITALS: BP 135/91; PULSE 82; RESP 18; TEMP 98; O2SAT 99
[2017-02-04 04:21] VITALS: BP 114/68; PULSE 84; RESP 16; TEMP 98.1; O2SAT 96
[2017-02-04] MEDS: MORPHINE SULFATE 4 MG/ML INJ IV PUSH PRN (05:44)
[2017-02-04 06:50] LABS: AUTOMATED NEUTROPHIL # 6.2 TH/MM3 (1.8-7.7); BASOPHIL # 0.3 TH/MM3 (0-0.2); BASOPHIL % 3.5 % (0.0-2.0); EOSINOPHIL # 0.2 TH/MM3 (0-0.4); HEMATOCRIT 39.5 % (39.0-51.0); HEMO FLAGS DIFF FINAL; LYMPH % 19.6 % (9.0-44.0); LYMPHOCYTE # 1.9 TH/MM3 (1.0-4.8); MEAN CELL VOLUME 82.3 FL (80.0-100.0); MEAN CORPUSCULAR HEMOGLOBIN 27.8 PG (27.0-34.0); MEAN CORPUSCULAR HGB CONC 33.8 % (32.0-36.0); MONO % 8.6 % (0.0-8.0); NEUT % 66.3 % (16.0-70.0); PLATELET COUNT 217 TH/MM3 (150-450); RED BLOOD COUNT 4.79 MIL/MM3 (4.50-5.90); RED CELL DISTRIBUTION WIDTH 13.1 % (11.6-17.2); WHITE BLOOD COUNT 9.4 TH/MM3 (4.0-11.0)
[2017-02-04] MEDS ORDERED: METOPROLOL TARTRATE 25 MG TAB PO SCH (07:00)
[2017-02-04 07:01] LABS: POTASSIUM 3.8 MEQ/L (3.5-5.1)
[2017-02-04 07:02] LABS: INTERNATIONAL NORMALIZED RATIO 2.2 RATIO; PROTHROMBIN TIME - PATIENT 24.9 SEC (9.8-11.6)
[2017-02-04 07:05] LABS: BICARBONATE 28.5 MEQ/L (21.0-32.0)
[2017-02-04 07:50] VITALS: BP 125/95; PULSE 80; RESP 20; TEMP 97.9; O2SAT 99
--- NOTE | 2017-02-04 07:54 | EKG ---
Date Performed: 02/03/2017 Time Performed: 23:29:46 PTAGE: 41 years EKG: ELECTRONIC ATRIAL PACEMAKER ELECTRONIC VENTRICULAR PACEMAKER ABNORMAL RHYTHM ECG No signifi cant change from prior electrocardiogram. PREVIOUS TRACING : 02/03/2017 17.55 DOCTOR: Bernardino Parra Interpretating Date/Time 02/04/2017 07:54:10
[2017-02-04] MEDS ORDERED: COLCHICINE 0.6 MG TAB PO ONE (08:30)
[2017-02-04] MEDS ORDERED: ASPIRIN 81 MG CHEW TAB CHEW SCH (09:00)
[2017-02-04] MEDS: DOXYCYCLINE HYCLATE 100 MG TAB PO SCH (09:00)
[2017-02-04] MEDS: SODIUM CHLORIDE 0.9% FLUSH 10 ML FLUSH IV FLUSH SCH (09:00)
[2017-02-04] MEDS: PANTOPRAZOLE SOD 40 MG DELAYED RELEASE TAB PO SCH (09:00)
[2017-02-04] MEDS ORDERED: COLCHICINE 0.6 MG TAB PO SCH (16:00)
--- NOTE | 2017-02-04 18:50 | PD.AMA ---
Against Medical Advice Note Discharge Disposition: Against Medical Advice Pt Condition on Discharge: Stable Recommended Treatment Course To stay inpt and to complete hospitalization treatment course. AMA Statement Patient Carlos Lamar has decided to leave the hospital against medical advice. This patient has the capacity to refuse care and understands the risks of leaving, including permanent disability and/or , and has had an opportunity to ask questions about his condition. The patient has been informed that he may return for care at any time, and follow up has been arranged/ advised. Manpreet Deutsch MD Feb 04, 2017 18:50
[2017-02-05] MEDS ORDERED: COLCHICINE 0.6 MG TAB PO SCH (09:00)
== END 2017-02-04 09:33 | disposition left against medical advice (07) ==
LOC: PHED 11:23 → PHEDA 13:49 → PH3B 15:23
PROVIDERS: ADMIT Hospitalist; ATTEND Hospitalist
DX: N17.9 Acute kidney failure, unspecified (principal); R07.9 Chest pain, unspecified; R53.1 Weakness; R53.83 Other fatigue; R61 Generalized hyperhidrosis; R05 Cough; R06.02 Shortness of breath; J32.9 Chronic sinusitis, unspecified; I13.10 Hypertensive heart and chronic kidney disease without heart failure, with stage 1 through stage 4 chronic kidney disease, or unspecified chronic kidney disease; I51.7 Cardiomegaly; N18.2 Chronic kidney disease, stage 2 (mild); I31.3 Pericardial effusion (noninflammatory); J90 Pleural effusion, not elsewhere classified; F41.9 Anxiety disorder, unspecified; Z95.2 Presence of prosthetic heart valve; Z95.0 Presence of cardiac pacemaker; Z79.899 Other long term (current) drug therapy; Z79.82 Long term (current) use of aspirin; Z79.01 Long term (current) use of anticoagulants; Z87.891 Personal history of nicotine dependence
CPT/HCPCS: 71010; 80048; 80053; 80061; 82550; 83690; 83735; 83880; 84484; 85025; 85610; 85652; 85730; 93005; 93306; 96361; 96374; 96376; G0378; J2270; J7040

== ENCOUNTER 2017-03-09 17:42 | Observation (INO) | payer MEDICARE ==
[~2017-03-09] VITALS: Ht 175.3 cm; Wt 82.0 kg
[~2017-03-09 17:42] MED LIST changes: +ERYTOIN10 RIGHT EYE
[2017-03-09 17:43] VITALS: BP 166/67; PULSE 68; RESP 16; TEMP 98.9; O2SAT 98
[2017-03-09] MEDS ORDERED: SODIUM CHLOR 0.9% 1000 ML INJ 1,000 ML IV ONE (18:30)
[2017-03-09] MEDS ORDERED: SODIUM CHLORIDE 0.9% FLUSH 10 ML FLUSH IVF PRN (18:30)
[2017-03-09 18:41] VITALS: BP 120/78; PULSE 115; RESP 16; O2SAT 98
[2017-03-09 18:46] VITALS: O2SAT 98
[2017-03-09] MEDS ORDERED: AMIT50TA3 PO (18:50)
[2017-03-09 19:05] LABS: AUTOMATED NEUTROPHIL # 9.8 TH/MM3 (1.8-7.7); BASOPHIL # 0.1 TH/MM3 (0-0.2); BASOPHIL % 0.6 % (0.0-2.0); EOSINOPHIL # 0.2 TH/MM3 (0-0.4); EOSINOPHIL % 1.6 % (0.0-4.0); HEMATOCRIT 39.8 % (39.0-51.0); HEMO FLAGS DIFF FINAL; LYMPH % 16.6 % (9.0-44.0); LYMPHOCYTE # 2.2 TH/MM3 (1.0-4.8); MEAN CELL VOLUME 81.7 FL (80.0-100.0); MEAN CORPUSCULAR HGB CONC 34.2 % (32.0-36.0); MONO % 7.2 % (0.0-8.0); PLATELET COUNT 219 TH/MM3 (150-450); RED BLOOD COUNT 4.88 MIL/MM3 (4.50-5.90); RED CELL DISTRIBUTION WIDTH 14.5 % (11.6-17.2); WHITE BLOOD COUNT 13.2 TH/MM3 (4.0-11.0)
[2017-03-09 19:19] LABS: ANION GAP 7 MEQ/L (5-15); AST (GOT) 15 U/L (15-37); BICARBONATE 26.1 MEQ/L (21.0-32.0); BLOOD UREA NITROGEN 13 MG/DL (7-18); CHLORIDE 102 MEQ/L (98-107); GLOMERULAR FILTRATION RATE 67 ML/MIN (>89); SODIUM (NA) 135 MEQ/L (136-145)
[2017-03-09 19:20] LABS: ALT (GPT) 25 U/L (12-78)
[2017-03-09 19:21] LABS: APTT (PATIENT) 43.6 SEC (24.3-30.1); INTERNATIONAL NORMALIZED RATIO 2.5 RATIO; PROTHROMBIN TIME - PATIENT 28.5 SEC (9.8-11.6)
--- NOTE | 2017-03-09 19:21 | PD ---
HPI Chief Complaint: Cardiac Complaint Time Seen by Provider: 17:53 Travel History International Travel<30 days: No Contact w/Intl Traveler<30days: No Traveled to known affect area: No History of Present Illness HPI Patient is a 41 year old male with history of aortic valve replacement, who comes in complaining of fatigue with shortness of breath. He says that the fatigue and shortness of breath is been going on for the past 2 days. He noticed today that his is elevated. He had his aortic valve replaced for months ago at [facility]. He says since then she's been having these episodes of pain and palpitations and goes the hospital for observation. He denies any leg swelling or pain. Denies fever or chills. He denies any coughing. He says he has pain to the left side of his chest. He reports compliance with all of his medications. PFSH Past Medical History Hx Anticoagulant Therapy: Yes (WARFARIN AND BABY ASA) Blood Disorders: No Anxiety: Yes Depression: Yes Heart Rhythm Problems: Yes Cancer: No Cardiac Catheterization: Yes Cardiovascular Problems: Yes High Cholesterol: No Chest Pain: Yes Congestive Heart Failure: No Diabetes: No Diminished Hearing: No Endocrine: No Genitourinary: No Hypertension: Yes Immune Disorder: No Implanted Vascular Access Dvce: Yes Musculoskeletal: No Neurologic: Yes (CHRONIC MIGRAINES) Psychiatric: Yes Reproductive: No Respiratory: No Thyroid Disease: No Past Surgical History Body Medical Devices: PACEMAKER, LOOP MONITOR Cardiac Surgery: Yes (PACER, VALVE REPLACEMENT) Pacemaker: Yes Other Surgery: Yes (CARPAL TUNNEL RIGHT WRIST, LIPOMA REMOVED) Social History Alcohol Use: No Tobacco Use: No Substance Use: No Allergies-Medications (Allergen,Severity, Reaction): Coded Allergies: ketorolac (Verified Allergy, Severe, Hallucinations, 03/07/17) latex (Verified Allergy, Intermediate, 03/07/17) Reported Meds & Prescriptions Reported Meds & Active Scripts Active Reported Amitriptyline (Amitriptyline HCl) 50 Mg Tab 50 Mg PO HS Metoprolol Tartrate 25 Mg Tab 25 Mg PO BID Warfarin 7.5 Mg Tab 7.5 Mg PO DIRECTED Warfarin 10 Mg Tab 11.5 Mg PO ON MON Aspirin Children's (Aspirin) 81 Mg Chew 81 Mg CHEW DAILY Review of Systems Except as stated in HPI: all other systems reviewed are Neg General / Constitutional: No: Fever, Chills HENT: No: Headaches, Lightheadedness Cardiovascular: Positive: Chest Pain or Discomfort Respiratory: Positive: Shortness of Breath Gastrointestinal: No: Nausea, Vomiting Musculoskeletal: No: Myalgias, Edema Skin: No Rash, No Change in Pigmentation Neurologic: No: Weakness, Dizziness Physical Exam Narrative GENERAL: Awake and alert, anxious. SKIN: Focused skin assessment warm/dry. HEAD: Atraumatic. Normocephalic. EYES: Pupils equal and round. No scleral icterus. ENT: Mucous membranes pink and moist. NECK: Trachea midline. No JVD. CARDIOVASCULAR: Tachycardia. No murmur appreciated. RESPIRATORY: No accessory muscle use. Clear to auscultation. Breath sounds equal bilaterally. GASTROINTESTINAL: Abdomen soft, non-tender, nondistended. MUSCULOSKELETAL: No obvious deformities. No clubbing. No cyanosis. No edema. NEUROLOGICAL: Awake and alert. No obvious cranial nerve deficits. Motor grossly within normal limits. Normal speech. PSYCHIATRIC: Appropriate mood and affect; insight and judgment normal. Data Data Last Documented VS Vital Signs Date Time Temp Pulse Resp B/P (MAP) Pulse Ox O2 Delivery O2 Flow Rate FiO2 03/09/17 18:46 98 Room Air 03/09/17 18:41 115 16 03/09/17 17:43 98.9 Orders Orders Complete Blood Count With Diff (03/09/17 18:21) Comprehensive Metabolic Panel (03/09/17 18:21) B-Type Natriuretic Peptide (03/09/17 18:21) Act Partial Throm Time (Ptt) (03/09/17 18:21) Prothrombin Time / Inr (Pt) (03/09/17 18:21) Troponin I (03/09/17 18:21) Iv Access Insert/Monitor (03/09/17 18:21) Electrocardiogram (03/09/17 18:21) Ecg Monitoring (03/09/17 18:21) Oximetry (03/09/17 18:21) Oxygen Administration (03/09/17 18:21) Chest, Single Ap (03/09/17 18:21) Ct Pulmonary Angiogram (03/09/17 18:21) Sodium Chloride 0.9% Flush (Ns Flush) (03/09/17 18:30) Sodium Chlor 0.9% 1000 Ml Inj (Ns 1000 M (03/09/17 18:30) Labs Laboratory Tests Test 03/09/17 18:35 White Blood Count 13.2 TH/MM3 Red Blood Count 4.88 MIL/MM3 Hemoglobin 13.6 GM/DL Hematocrit 39.8 % Mean Corpuscular Volume 81.7 FL Mean Corpuscular Hemoglobin 28.0 PG Mean Corpuscular Hemoglobin Concent 34.2 % Red Cell Distribution Width 14.5 % Platelet Count 219 TH/MM3 Mean Platelet Volume 9.7 FL Neutrophils (%) (Auto) 74.0 % Lymphocytes (%) (Auto) 16.6 % Monocytes (%) (Auto) 7.2 % Eosinophils (%) (Auto) 1.6 % Basophils (%) (Auto) 0.6 % Neutrophils # (Auto) 9.8 TH/MM3 Lymphocytes # (Auto) 2.2 TH/MM3 Monocytes # (Auto) 0.9 TH/MM3 Eosinophils # (Auto) 0.2 TH/MM3 Basophils # (Auto) 0.1 TH/MM3 CBC Comment DIFF FINAL Differential Comment MDM Medical Decision Making Medical Screen Exam Complete: Yes Emergency Medical Condition: Yes Medical Record Reviewed: Yes Interpretation(s) ECG shows Electronic ventricular pacemaker at a rate of 105 Differential Diagnosis Electrolyte abnormality versus dehydration versus PE versus ACS versus CHF Narrative Course Patient is a 41-year-old male who comes in complaining of palpitations and fatigue with shortness of breath. Exam shows tachycardia. IV established, labs sent. CTA ordered to rule out PE. 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 Arlet Toribio. I spoke with Dr. Barcenas who is in his practice who suggests interrogation of the pacemaker. He says he was seen by Dr. Nice and Dr. Nice believes that the valve is functioning well. Patient signed out to Dr. Robledo to follow up testing and disposition the patient. Mitzi Marshall MD Mar 09, 2017 19:21
[2017-03-09 19:24] LABS: ALKALINE PHOSPHATASE 87 U/L (45-117); TOTAL BILIRUBIN ADULT 0.6 MG/DL (0.2-1.0)
[2017-03-09 19:40] VITALS: BP 119/85; PULSE 102; RESP 18; O2SAT 97
--- NOTE | 2017-03-09 19:46 | RADRPT ---
EXAM DATE/TIME: 03/09/2017 19:15 [facility] COMPARISON: CHEST SINGLE AP, February 03, 2017, 11:49. INDICATIONS : Chest pain and shortness of breath. MEDICAL HISTORY : Hypertension. SURGICAL HISTORY : Pacemaker. CABG. ENCOUNTER: Initial ACUITY: 1 day PAIN SCORE: 6/10 LOCATION: Bilateral chest FINDINGS: The patient is status post sternotomy. There is a pacing device seen in the left chest. There is a lo op recorder present. The heart size is mildly enlarged. The lungs are clear. CONCLUSION: No acute disease. Edenilson Mathur MD on March 09, 2017 at 19:44 Board Certified Radiologist. This report was verified electronically.
[2017-03-09 20:00] VITALS: O2SAT 97
[2017-03-09] MEDS ORDERED: METOPROLOL TARTRATE 25 MG TAB PO ONE (20:00)
[2017-03-09] MEDS ORDERED: WARFARIN SOD 7.5 MG TAB PO ONE (20:00)
[2017-03-09] MEDS ORDERED: IOHEXOL 350 MG/ML 10 ML VIAL (for RAD DIAG) IVCONTRAST ONE (20:05)
--- NOTE | 2017-03-09 20:26 | RADRPT ---
EXAM DATE/TIME: 03/09/2017 19:55 [facility] COMPARISON: CT PULMONARY ANGIOGRAM, February 02, 2017, 19:34. INDICATIONS : Chest pain and shortness of breath. IV CONTRAST: 75 cc Omnipaque 350 (iohexol) IV RADIATION DOSE: 25.60 CTDIvol (mGy) MEDICAL HISTORY : Cardiovascular disease. SURGICAL HISTORY : Pacemaker. Valve replacement. ENCOUNTER: Initial ACUITY: 2 days PAIN SCALE: 8/10 LOCATION: chest TECHNIQUE: Volumetric scanning of the chest was performed using a pulmonary embolism protocol MIP images were re constructed. Using automated exposure control and adjustment of the mA and/or kV according to patien t size, radiation dose was kept as low as reasonably achievable to obtain optimal diagnostic quality images. DICOM format image data is available electronically for review and comparison. Follow-up recommendations for detected pulmonary nodules are based at a minimum on nodule size and pa tient risk factors according to Fleischner Society Guidelines. FINDINGS: PULMONARY ARTERIES: No filling defects are seen in the pulmonary arteries through the segmental level. LUNGS: There is no consolidation or pneumothorax . No concerning pulmonary nodule is visualized. PLEURAE: There is a minimal left pleural effusion. MEDIASTINUM: There is good visualization of the great vessels of the middle mediastinum. No evidence of mediastin al or hilar adenopathy/mass. The patient is status post sternotomy. There is a pacing device in place from the left chest. There is a prosthetic aortic valve present. There is a mild pericardial effusio n measuring 6 mm. MUSCULOSKELETAL: Within normal limits for patient age. MISCELLANEOUS: The visualized upper abdominal organs demonstrate no acute abnormality. CONCLUSION: 1. No pulmonary embolus. 2. Mild left pleural effusion and pericardial effusion. Edenilson Mathur MD on March 09, 2017 at 20:23 Board Certified Radiologist. This report was verified electronically.
[2017-03-09] MEDS ORDERED: MORPHINE SULFATE 4 MG/ML INJ IV PUSH ONE (20:45)
[2017-03-09] MEDS ORDERED: SODIUM CHLORIDE 0.9% FLUSH 10 ML FLUSH IV FLUSH PRN (21:45)
--- NOTE | 2017-03-09 21:47 | PD ---
Data Data Last Documented VS Vital Signs Date Time Temp Pulse Resp B/P (MAP) Pulse Ox O2 Delivery O2 Flow Rate FiO2 03/09/17 19:40 102 18 119/85 (96) 97 Room Air 03/09/17 17:43 98.9 Orders Orders Complete Blood Count With Diff (03/09/17 18:21) Comprehensive Metabolic Panel (03/09/17 18:21) B-Type Natriuretic Peptide (03/09/17 18:21) Act Partial Throm Time (Ptt) (03/09/17 18:21) Prothrombin Time / Inr (Pt) (03/09/17 18:21) Troponin I (03/09/17 18:21) Iv Access Insert/Monitor (03/09/17 18:21) Electrocardiogram (03/09/17 18:) Ecg Monitoring (03/09/17 18:21) Oximetry (03/09/17 18:21) Oxygen Administration (03/09/17 18:21) Chest, Single Ap (03/09/17 18:21) Ct Pulmonary Angiogram (03/09/17 18:21) Sodium Chloride 0.9% Flush (Ns Flush) (03/09/17 18:30) Sodium Chlor 0.9% 1000 Ml Inj (Ns 1000 M (03/09/17 18:30) Metoprolol Tartrate (Lopressor) (03/09/17 20:00) Warfarin (Coumadin) (03/09/17 20:00) Iohexol 350 Inj (Omnipaque 350 Inj) (03/09/17 20:05) Morphine Inj (Morphine Inj) (03/09/17 20:45) Admit Order (Ed Use Only) (03/09/17 21:39) Activity Bed Rest With Brp (03/09/17 21:39) Vital Signs (Adult) Q4H (03/09/17 21:39) Cardiac Rhythm .As Directed (03/09/17 21:39) Notify Dr: Other .PRN (03/09/17 21:39) Notify DrImelda Parameters (03/09/17 21:39) Resp Oxygen Nasal Cannula (03/09/17 ) Ckmb (Isoenzyme) Profile (03/09/17 21:39) Ckmb (Isoenzyme) Profile (03/10/17 00:39) Troponin I (11/16/17 21:39) Troponin I (03/10/17 00:39) Electrocardiogram (03/09/17 21:39) Electrocardiogram (03/10/17 00:39) ^ Obtain (03/09/17 21:39) Sodium Chloride 0.9% Flush (Ns Flush) (03/09/17 21:45) Sodium Chloride 0.9% Flush (Ns Flush) (03/10/17 09:00) Heavy Forger Helper / Telemetry SURINDER.Q8H (03/09/17 21:39) Labs Laboratory Tests Test 03/09/17 18:35 White Blood Count 13.2 TH/MM3 Red Blood Count 4.88 MIL/MM3 Hemoglobin 13.6 GM/DL Hematocrit 39.8 % Mean Corpuscular Volume 81.7 FL Mean Corpuscular Hemoglobin 28.0 PG Mean Corpuscular Hemoglobin Concent 34.2 % Red Cell Distribution Width 14.5 % Platelet Count 219 TH/MM3 Mean Platelet Volume 9.7 FL Neutrophils (%) (Auto) 74.0 % Lymphocytes (%) (Auto) 16.6 % Monocytes (%) (Auto) 7.2 % Eosinophils (%) (Auto) 1.6 % Basophils (%) (Auto) 0.6 % Neutrophils # (Auto) 9.8 TH/MM3 Lymphocytes # (Auto) 2.2 TH/MM3 Monocytes # (Auto) 0.9 TH/MM3 Eosinophils # (Auto) 0.2 TH/MM3 Basophils # (Auto) 0.1 TH/MM3 CBC Comment DIFF FINAL Differential Comment Prothrombin Time 28.5 SEC Prothromb Time International Ratio 2.5 RATIO Activated Partial Thromboplast Time 43.6 SEC Blood Urea Nitrogen 13 MG/DL Creatinine 1.19 MG/DL Random Glucose 97 MG/DL Total Protein 7.7 GM/DL Albumin 3.9 GM/DL Calcium Level 8.9 MG/DL Alkaline Phosphatase 87 U/L Aspartate Amino Transf (AST/SGOT) 15 U/L Alanine Aminotransferase (ALT/SGPT) 25 U/L Total Bilirubin 0.6 MG/DL Sodium Level 135 MEQ/L Potassium Level 4.0 MEQ/L Chloride Level 102 MEQ/L Carbon Dioxide Level 26.1 MEQ/L Anion Gap 7 MEQ/L Estimat Glomerular Filtration Rate 67 ML/MIN Troponin I LESS THAN 0.02 NG/ML B-Type Natriuretic Peptide 51 PG/ML MDM Supervised Visit with GIGI: No Narrative Course The patient was initially evaluated by the previous provider and signed out to me at the beginning of my shift pending labs, chest x-ray, pacemaker interrogation, and disposition. See her note for further details. Briefly this is a 41-year-old male with history of aortic valve repair 4 months ago in [place], [facility], here for evaluation of chest pain and shortness of breath. Symptoms have been going on for last 2 days. Chest pain is substernal and radiates to left side of his chest, described as a stabbing/pressure sensation, worse with inspiration. The previous provider contacted the on-call hobbing machine operator in [place] who recommended that we interrogate his pacemaker. Chart review shows that the patient had an echocardiogram performed last month and although the aortic valve was not directly visualized, there did not appear to be any regurgitation and the leaflets appeared to be functioning properly. Vital signs here show that the patient is slightly tachycardic with a heart rate between 101 115. Blood pressure is 119/85. Pulse ox is 98% on room air. Oral temp is 98.9F. CBC: WBC 13.2, hemoglobin 13.6, hematocrit 39.8, platelets 219, neutrophils 74%. CMP is unremarkable. BNP is 51. Cardiac enzymes are negative. Chest x-ray shows no acute disease. CT pulmonary angiogram: No pulmonary embolism. Mild left pleural effusion and mild pericardial effusion. Pacemaker interrogated by the [employer] rep shows that it is functioning properly. The patient has an intrinsic atrial beat with ventricular paces following each atrial contraction. The patient and the patient's were made aware of all findings. He was given a dose of morphine, however his pain persists. His pain is currently 5 out of 10, worse with inspiration, substernal and left-sided chest, sharp/ pressure-like. They believe that the pain may be secondary to the loop recorder that the patient still has implanted in his left chest. There are no signs of infection or cellulitis at the site of where the loop recorder is. Given ongoing pain, the patient will be admitted to the chest pain center for further cardiac evaluation. He is amenable to this plan. Diagnosis Primary Impression: Chest pain Qualified Codes: R07.9 - Chest pain, unspecified Additional Impressions: Pericardial effusion Pleural effusion Sinus tachycardia Admitting Information Admitting Physician Requests: Ashley Padillaan N MD Mar 09, 2017 21:47
[2017-03-09 23:29] VITALS: BP 122/86; PULSE 91; RESP 20; TEMP 98.8; O2SAT 96
[2017-03-09 23:36] LABS: CREATINE KINASE 61 U/L (39-308)
[2017-03-10] VITALS (9 sets, daily range): BP systolic 106–116; BP diastolic 65–78; PULSE 78–107; RESP 16–20; TEMP 98.1–98.8; O2SAT 93–97
[2017-03-10] MEDS ORDERED: ZOLPIDEM TARTRATE 10 MG TAB PO PRN (00:15)
[2017-03-10] MEDS ORDERED: ACETAMINOPHEN 500 MG CPLT PO PRN ×2 (00:15→01:00)
[2017-03-10] MEDS ORDERED: ACETAMINOPHEN/HYDROcodone 325 MG/7.5 MG TAB PO PRN (00:15)
[2017-03-10] MEDS ORDERED: ONDANSETRON HCL 4 MG/2 ML VIAL IV PUSH PRN (01:00)
[2017-03-10] MEDS ORDERED: SODIUM CHLORIDE 0.9% FLUSH 10 ML FLUSH IV FLUSH PRN ×2 (01:00)
[2017-03-10] MEDS: MORPHINE SULFATE 2 MG/ML INJ IV PRN ×2 (01:44→07:35)
[2017-03-10 02:33] LABS: CREATINE KINASE 58 U/L (39-308)
[2017-03-10] MEDS ORDERED: NITROGLYCERIN 0.4 MG SL 25 TABS/BTL SL PRN (07:45)
--- NOTE | 2017-03-10 08:18 | HHI.HP ---
HPI Primary Care Physician Bryant Kimbrough MD Chief Complaint Chest pain History of Present Illness 41-year-old male with recent aortic valve replacement 4 months ago presents to emergency room for further evaluation of chest pain. Onset 2 days. Location left anterior chest, point tenderness over loop recorder area. Described as "sore." No radiation of pain. Duration constant. No associated symptoms of nausea, vomiting, diaphoresis, or dyspnea. No known precipitating factors. Reports relieving factors of morphine or Dilaudid helps "bring the pain down some." Endorses similar pain 3 weeks ago, stating pain "exactly the same." hostile and angry before interview began. angry has an NPO order and stating "I know pain from loop recorder and I want it out today." notified even if loop recorder was deemed to be removed, there a process to be followed. Informed they cannot demand or expected loop recorder to be removed especially in the emergency room setting. Denies contacting his veneer lathe operator for recent or current chest pain episode to discuss their concern pain is related to loop recorder. When asked if they prefer local veneer lathe operator, the both state they want to continue with veneer lathe operator in [place]. Continues to have point tenderness chest pain with palpation. Hurts to take a deep breath. No particular movement or position makes pain worse. Laying flat makes pain better. Review of Systems General: No fatigue,weakness, fever, chills, or recent illness. Reports recovering well from aortic valve replacement surgery. Endorses compliance with warfarin, goes to cardiac rehab weekly. HEENT: History of migraines. CV: Continues to have chest pain as stated above. No palpitations or dizziness. RESP: No SOB, cough, or recent URI. No sputum production. GI: No nausea, vomiting, or bowel changes. No melena or blood in the stool. : No dysuria EXT: No lower leg edema, no paraesthesias MS: As stated above, localized point tenderness over loop recorder area. No change in ROM or recent injury. Ambulates with a cane. NEURO: No LOC, motor/sensory deficits PSYCH: No current anxiety or depression, history of anxiety and depression. SKIN: No rashes, no concerning lesions, surgical sites healed quickly and unremarkable. Past Family Social History Allergies: Coded Allergies: ketorolac (Verified Allergy, Severe, Hallucinations, 03/07/17) latex (Verified Allergy, Intermediate, 03/07/17) Past Medical History Anxiety, depression, hypertension, migraines Past Surgical History Aortic valve replacement (4 months ago [place], [place]), Loop recorder placement September 2016, carpal tunnel surgery Reported Medications Reported Meds & Active Scripts Active Reported Amitriptyline (Amitriptyline HCl) 50 Mg Tab 50 Mg PO HS Metoprolol Tartrate 25 Mg Tab 25 Mg PO BID Warfarin 7.5 Mg Tab 7.5 Mg PO DIRECTED Warfarin 10 Mg Tab 11.5 Mg PO ON MON Aspirin Children's (Aspirin) 81 Mg Chew 81 Mg CHEW DAILY Active Ordered Medications Current Medications Medications (Trade) Dose Ordered Sig/Vinnie Route Start Time Stop Time Status Last Admin (Tylenol) 1,000 mg Q8H PRN PO 03/10/17 00:15 ([place] 7.5-325 Mg) 1 tab Q6H PRN PO 03/10/17 00:15 (Morphine Inj) 2 mg Q2H PRN IV 03/10/17 00:15 03/10/17 07:35 (Ambien) 10 mg HS PRN PO 03/10/17 00:15 03/10/17 01:46 (NS Flush) 2 ml UNSCH PRN IV FLUSH 03/10/17 01:00 03/10/17 07:35 (NS Flush) 2 ml UNSCH PRN IV FLUSH 03/10/17 01:00 (Tylenol) 500 mg Q4H PRN PO 03/10/17 01:00 (Zofran Inj) 4 mg Q6H PRN IV PUSH 03/10/17 01:00 (Nitrostat Sl) 0.4 mg Q5M PRN SL 03/10/17 07:45 Family History Noncontributory for early onset cardiovascular disease. Social History Known hypertension. No known diabetes, coronary artery disease, or hyperlipidemia. Former smoker 2-3 packs/daily. Quit smoking 5 years ago. Denies any alcohol or illegal drug use. Activity currently restricted, attending cardiac rehabilitation. Past cardiac testing Reports cardiac catheterization prior to aortic valve surgery. States cardiac catheterization completely normal without signs of blockages. Aortic valve replaced in [facility]-4 months ago. Follows with veneer lathe operator and are Dr. Arlet lane. Physical Exam Vital Signs Vital Signs Date Time Temp Pulse Resp B/P (MAP) Pulse Ox O2 Delivery O2 Flow Rate FiO2 03/10/17 08:06 98.1 107 20 116/78 (91) 96 03/10/17 07:59 93 21 03/10/17 05:10 98.4 90 18 109/73 (85) 96 03/10/17 04:23 78 03/10/17 00:00 90 03/09/17 23:29 98.8 91 20 122/86 (98) 96 03/09/17 23:07 03/09/17 20:00 97 21 03/09/17 19:40 102 18 119/85 (96) 97 Room Air 03/09/17 18:46 98 Room Air 03/09/17 18:46 98 Room Air 03/09/17 18:41 115 16 120/78 (92) 98 03/09/17 17:43 98.9 68 16 166/67 (100) 98 Room Air Physical Exam GENERAL: Alert WN, WD, NAD, male HEAD: NC, AT EYES: Sclera clear, conjunctiva without injection, pupils equal and round ENT: Mucous membranes pink and moist NECK: Supple, no masses, trachea midline CV: Mechanical S1 sound, regular rhythm, without murmur, rub, gallop, no JVD, S1 -S2 no S3-S4. No carotid or femoral bruits. Left anterior chest, area directly over loop recorder, made worse with palpation. RESP: Clear lungs throughout bilateral, no crackles, wheeze, rhonchi, symmetrical chest rise, nonlabored, able to speak in full sentences ABD: Soft, NT, ND, no masses, positive bowel tones EXT: Pulses +24, no dependent edema MS: Normal tone 4 extremities, nontender, no obvious deformities, full range of motion NEURO: CN II through CN XII grossly intact, motor strength 5/5 PSYCH: A+O 3, appropriate speech, affect. Insight and judgment questionable due to hostile behavior and demanding loop recorder to be removed, otherwise insight and judgement appears normal. SKIN: Normal turgor, normal texture, no lesions, no rashes, brisk cap refill, even hair distribution, midchest surgical scar, multiple tattoos. Laboratory Laboratory Tests Test 03/09/17 18:35 03/09/17 22:45 03/10/17 01:50 White Blood Count 13.2 Red Blood Count 4.88 Hemoglobin 13.6 Hematocrit 39.8 Mean Corpuscular Volume 81.7 Mean Corpuscular Hemoglobin 28.0 Mean Corpuscular Hemoglobin Concent 34.2 Red Cell Distribution Width 14.5 Platelet Count 219 Mean Platelet Volume 9.7 Neutrophils (%) (Auto) 74.0 Lymphocytes (%) (Auto) 16.6 Monocytes (%) (Auto) 7.2 Eosinophils (%) (Auto) 1.6 Basophils (%) (Auto) 0.6 Neutrophils # (Auto) 9.8 Lymphocytes # (Auto) 2.2 Monocytes # (Auto) 0.9 Eosinophils # (Auto) 0.2 Basophils # (Auto) 0.1 CBC Comment DIFF FINAL Differential Comment Prothrombin Time 28.5 Prothromb Time International Ratio 2.5 Activated Partial Thromboplast Time 43.6 Blood Urea Nitrogen 13 Creatinine 1.19 Random Glucose 97 Total Protein 7.7 Albumin 3.9 Calcium Level 8.9 Alkaline Phosphatase 87 Aspartate Amino Transf (AST/SGOT) 15 Alanine Aminotransferase (ALT/SGPT) 25 Total Bilirubin 0.6 Sodium Level 135 Potassium Level 4.0 Chloride Level 102 Carbon Dioxide Level 26.1 Anion Gap 7 Estimat Glomerular Filtration Rate 67 Troponin I LESS THAN 0.02 LESS THAN 0.02 LESS THAN 0.02 B-Type Natriuretic Peptide 51 Total Creatine Kinase 61 58 Result Diagram: 03/09/17183403/09/171834 Imaging Last Impressions Chest X-Ray 03/09/171820 Signed Impressions: Service Date/Time: February 19:15 - CONCLUSION: No acute disease. Edenilson Mathur MD CT Angiography 03/09/171820 Signed Impressions: Service Date/Time: February 19:55 - CONCLUSION: 1. No pulmonary embolus. 2. Mild left pleural effusion and pericardial effusion. Edenilson Mathur MD Course EKG Ventricular paced Caprini VTE Risk Assessment Caprini VTE Risk Assessment: No/Low Risk (score <= 1) Caprini Risk Assessment Model Point Value = 1 Point Value = 2 Point Value = 3 Point Value = 5 Age 41-60 Minor surgery BMI > 25 kg/m2 Swollen legs Varicose veins or History of unexplained or recurrent spontaneous Oral contraceptives or hormone replacement Sepsis (< 1 month) Serious lung disease, including pneumonia (< 1 month) Abnormal pulmonary function Acute myocardial infarction Congestive heart failure (< 1 month) History of inflammatory bowel disease Medical patient at bed rest Age 61-74 Arthroscopic surgery Major open surgery (> 45 min) Laparoscopic surgery (> 45 min) Malignancy Confined to bed (> 72 hours) Immobilizing plaster cast Central venous access Age >= 75 History of VTE Family history of VTE Factor V Leiden Prothrombin [id number] Lupus anticoagulant Anticardiolipin antibodies Elevated serum homocysteine Heparin-induced thrombocytopenia Other congenital or acquired thrombophilia Stroke (< 1 month) Elective arthroplasty Hip, pelvis, or leg fracture Acute spinal cord injury (< 1 month) Prophylaxis Regimen Total Risk Factor Score Risk Level Prophylaxis Regimen 0-1 Low Early ambulation 2 Moderate Order ONE of the following: *Sequential Compression Device (SCD) *Heparin 5000 units SQ BID 3-4 Higher Order ONE of the following medications: *Heparin 5000 units SQ TID *Enoxaparin/Lovenox 40 mg SQ daily (WT < 150 kg, CrCl > 30 mL/min) *Enoxaparin/Lovenox 30 mg SQ daily (WT < 150 kg, CrCl > 10-29 mL/min) *Enoxaparin/Lovenox 30 mg SQ BID (WT < 150 kg, CrCl > 30 mL/min) AND/OR *Sequential Compression Device (SCD) 5 or more Highest Order ONE of the following medications: *Heparin 5000 units SQ TID (Preferred with Epidurals) *Enoxaparin/Lovenox 40 mg SQ daily (WT < 150 kg, CrCl > 30 mL/min) *Enoxaparin/Lovenox 30 mg SQ daily (WT < 150 kg, CrCl > 10-29 mL/min) *Enoxaparin/Lovenox 30 mg SQ BID (WT < 150 kg, CrCl > 30 mL/min) AND *Sequential Compression Device (SCD) Assessment and Plan Assessment and Plan #1 Atypical chest pain-admitted to chest pain center. Ruled out with 3 sets of EKGs, cardiac enzymes, and monitored overnight. Seen and evaluated by Dr. Rosalio Infante. chest wall pain appears to be musculoskeletal related as pain directly over loop recorder. Reassurance provided pain not cardiac related. Discussed in length pain not guaranteed to be resolved if loop recorder removed. Presentation of discomfort does not appear to be pericarditis, as discomfort easily reproduced with palpation over loop recorder area. Encouraged him to follow-up with his veneer lathe operator to discuss possible removal of device. Patient and are agreeable to plan of care. #2 History of aortic valve-mechanical valve, continue warfarin, INR therapeutic #3 Hypertension-continue metoprolol Lidia Byers Mar 10, 2017 08:18
[2017-03-10] MEDS ORDERED: SODIUM CHLORIDE 0.9% FLUSH 10 ML FLUSH IV FLUSH SCH (09:00)
[2017-03-10] MEDS ORDERED: ASPIRIN 81 MG CHEW TAB CHEW SCH (09:00)
[2017-03-10] MEDS ORDERED: METOPROLOL TARTRATE 25 MG TAB PO SCH (09:00)
--- NOTE | 2017-03-10 12:20 | HHI.DCPOC ---
Discharge Care Plan Diagnosis: (1) History of loop recorder (2) Musculoskeletal chest pain (3) History of aortic valve replacement (4) Hypertension Goals to Promote Your Health * To prevent worsening of your condition and complications * To maintain your health at the optimal level Directions to Meet Your Goals Take your medications as prescribed Follow your dietary instruction Follow activity as directed Keep your appointments as scheduled Take your immunizations and boosters as scheduled If your symptoms worsen call your PCP, if no PCP go to Urgent Care Center or Emergency Room Smoking is Dangerous to Your Health. Avoid second hand smoke Call the 24-hour hour crisis hotline for domestic abuse at Lidia Byers Mar 10, 2017 12:20
--- NOTE | 2017-03-10 16:18 | EKG ---
Date Performed: 03/09/2017 Time Performed: 22:10:52 PTAGE: 41 years EKG: ELECTRONIC VENTRICULAR PACEMAKER ABNORMAL RHYTHM ECG PREVIOUS TRACING : 03/09/2017 18.27 Since previous tracing, no significant change noted DOCTOR: Rosalio Infante Interpretating Date/Time 03/10/2017 16:17:43
--- NOTE | 2017-03-10 16:23 | EKG ---
Date Performed: 03/09/2017 Time Performed: 18:27:49 PTAGE: 41 years EKG: ELECTRONIC VENTRICULAR PACEMAKER ABNORMAL RHYTHM ECG PREVIOUS TRACING : 02/03/2017 23.29 Since previous tracing, no significant change noted DOCTOR: Rosalio Infante Interpretating Date/Time 03/10/2017 16:21:40
--- NOTE | 2017-03-10 16:26 | EKG ---
Date Performed: 03/10/2017 Time Performed: 02:03:46 PTAGE: 41 years EKG: ELECTRONIC VENTRICULAR PACEMAKER ABNORMAL RHYTHM ECG PREVIOUS TRACING : 03/09/2017 22.10 Since previous tracing, no significant change noted DOCTOR: Rosalio Infante Interpretating Date/Time 03/10/2017 16:24:30
== END 2017-03-10 17:58 | disposition home or self-care (01) ==
LOC: NEPE 17:42 → NEDA 21:41 → NEPHCDU 22:55
DX: R07.2 Precordial pain (principal); J90 Pleural effusion, not elsewhere classified; I31.3 Pericardial effusion (noninflammatory); R00.0 Tachycardia, unspecified; R53.83 Other fatigue; R06.02 Shortness of breath; F41.9 Anxiety disorder, unspecified; F32.9 Major depressive disorder, single episode, unspecified; I10 Essential (primary) hypertension; G43.909 Migraine, unspecified, not intractable, without status migrainosus; Z79.01 Long term (current) use of anticoagulants; Z79.82 Long term (current) use of aspirin; Z95.2 Presence of prosthetic heart valve; Z95.0 Presence of cardiac pacemaker
CPT/HCPCS: 71010; 71275; 80053; 82550; 83880; 84484; 85025; 85610; 85730; 93005; 96361; 96374; 96376; 99285; G0378; J2270; J7030; Q9967

== ENCOUNTER 2017-03-25 21:35 | Emergency (ER) | payer MEDICARE ==
[~2017-03-25 21:35] MED LIST changes: +AMIT50TA3 PO; -ERYTOIN10 RIGHT EYE
[2017-03-25 21:47] VITALS: BP 129/74; PULSE 105; RESP 20; O2SAT 97
--- NOTE | 2017-03-26 00:16 | PD ---
HPI Chief Complaint: Injury Time Seen by Provider: 00:10 Travel History International Travel<30 days: No Contact w/Intl Traveler<30days: No Traveled to known affect area: No History of Present Illness HPI The patient is a 41-year-old male that complains of spots on his right hand after falling several hours ago. He is on Coumadin because of aortic valve replacement. He noticed some small areas of redness, 2 on the index fingers at the dorsal MP and PIP joints and 2 on the third and fifth fingers at the MP joints. The one on the fourth finger is about 2 cm in diameter and the rest are 1 cm in diameter. He has no bony pain or deformity. He moves his joints without any apparent discomfort. There are no other injuries. PFSH Past Medical History Hx Anticoagulant Therapy: Yes (COUMADIN) Blood Disorders: No Anxiety: Yes Depression: Yes Heart Rhythm Problems: Yes Cancer: No Cardiac Catheterization: Yes Cardiovascular Problems: Yes High Cholesterol: No Chest Pain: Yes Congestive Heart Failure: No Diabetes: No Diminished Hearing: No Endocrine: No Genitourinary: No Hypertension: Yes Immune Disorder: No Implanted Vascular Access Dvce: Yes Musculoskeletal: No Neurologic: Yes (CHRONIC MIGRAINES) Psychiatric: Yes Reproductive: No Respiratory: No Immunizations Current: Yes Thyroid Disease: No Tetanus Vaccination: < 5 Years Influenza Vaccination: No Past Surgical History Body Medical Devices: PACEMAKER, LOOP MONITOR Cardiac Surgery: Yes (PACER, VALVE REPLACEMENT) Pacemaker: Yes Other Surgery: Yes (CARPAL TUNNEL RIGHT WRIST, LIPOMA REMOVED) Family History Family Myocardial Infarction: Yes Social History Alcohol Use: No Tobacco Use: No Substance Use: No Allergies-Medications (Allergen,Severity, Reaction): Coded Allergies: ketorolac (Verified Allergy, Severe, Hallucinations, 03/07/17) latex (Verified Allergy, Intermediate, 03/07/17) Reported Meds & Prescriptions Reported Meds & Active Scripts Active Reported Amitriptyline (Amitriptyline HCl) 50 Mg Tab 50 Mg PO HS Metoprolol Tartrate 25 Mg Tab 25 Mg PO BID Warfarin 7.5 Mg Tab 7.5 Mg PO DIRECTED Warfarin 10 Mg Tab 11.5 Mg PO ON MON Aspirin Children's (Aspirin) 81 Mg Chew 81 Mg CHEW DAILY Review of Systems Except as stated in HPI: all other systems reviewed are Neg Physical Exam Narrative GENERAL: Well-nourished, well-developed patient. SKIN: Focused skin assessment warm/dry. There is a 2 cm diameter contusion on the MP joint of the fifth finger dorsally and 1 cm contusions on the second and third MP joints dorsally and PIP joint on the second finger dorsally. No associated bony deformity neither linear no rotatory is present. The patient moves all these joints without any problem. HEAD: Normocephalic. EYES: No scleral icterus. No injection or drainage. NECK: Supple, trachea midline. No JVD or lymphadenopathy. CARDIOVASCULAR: Regular rate and rhythm without murmurs, gallops, or rubs. RESPIRATORY: Breath sounds equal bilaterally. No accessory muscle use. GASTROINTESTINAL: Abdomen soft, non-tender, nondistended. MUSCULOSKELETAL: No cyanosis, or edema. BACK: Nontender without obvious deformity. No CVA tenderness. Data Data Last Documented VS Vital Signs Date Time Temp Pulse Resp B/P (MAP) Pulse Ox O2 Delivery O2 Flow Rate FiO2 03/25/17 23:03 Room Air 03/25/17 21:47 105 20 129/74 (92) 97 MDM Medical Decision Making Medical Screen Exam Complete: Yes Emergency Medical Condition: Yes Medical Record Reviewed: Yes Differential Diagnosis Contusions of right fingers, hematoma of fingers, hematoma of joints Narrative Course There is no evidence of bleeding into the joints. These all appear to be contusions dorsally over the fingers previously described. Diagnosis Primary Impression: Contusion, fingers Additional Instructions: As we discussed, if there are any problems return to emergency department. I would expect in the next day or 2 these would get larger and perhaps turn color but they should not get extremely larger where they limit the joint movement. Med/Other Pt SpecificInfo: No Change to Meds Disposition: 01 DISCHARGE HOME Condition: Stable Shashi Moses MD Mar 26, 2017 00:16
[2017-03-26 00:20] VITALS: BP 130/85; PULSE 95; RESP 18; TEMP 98.2; O2SAT 100
== END 2017-03-26 00:21 | disposition home or self-care (01) ==
LOC: PHED 21:35
DX: S60.00XA Contusion of unspecified finger without damage to nail, initial encounter (principal); W19.XXXA Unspecified fall, initial encounter
CPT/HCPCS: 99281

== ENCOUNTER 2017-06-06 11:11 | Emergency (ER) | payer SELFPAY ==
[~2017-06-06] VITALS: Ht 175.3 cm; Wt 93.5 kg
[2017-06-06 11:52] VITALS: BP 126/77; PULSE 84; RESP 18; TEMP 98.4; O2SAT 97
[2017-06-06] MEDS ORDERED: COUM7.5T PO ×2 (12:22)
[2017-06-06] MEDS ORDERED: COUM6TAB PO (12:22)
[2017-06-06] MEDS ORDERED: CLIN300C5 PO (12:54)
[2017-06-06] MEDS ORDERED: CLINDAMYCIN PHOS 900 MG/6 ML VIAL IM ONE (13:00)
--- NOTE | 2017-06-06 13:03 | PD ---
HPI Chief Complaint: Skin Problem Time Seen by Provider: 12:38 Travel History International Travel<30 days: No Contact w/Intl Traveler<30days: No Traveled to known affect area: No History of Present Illness HPI 41-year-old male presents to the emergency room for evaluation of left third finger pain and swelling that started last night. He states it started off as a small area and significantly increased overnight. He denies any trauma or injury. Patient reports pain when he tries to bend the finger. It was never itchy. He does not remember being bitten by anything. Denies drainage, fever, chills, nausea, vomiting. Patient is concerned because he has history of aortic valve replacement 9 months ago and is on Coumadin. PFSH Past Medical History Hx Anticoagulant Therapy: Yes (COUMADIN) Blood Disorders: No Anxiety: Yes Depression: Yes Heart Rhythm Problems: Yes Cancer: No Cardiac Catheterization: Yes Cardiovascular Problems: Yes High Cholesterol: No Chest Pain: Yes Congestive Heart Failure: No Diabetes: No Diminished Hearing: No Endocrine: No Gastrointestinal Disorders: No Genitourinary: No Hypertension: Yes Immune Disorder: No Implanted Vascular Access Dvce: Yes Musculoskeletal: No Neurologic: Yes (CHRONIC MIGRAINES) Psychiatric: Yes Reproductive: No Respiratory: No Immunizations Current: Yes Thyroid Disease: No Tetanus Vaccination: < 5 Years Past Surgical History Body Medical Devices: PACEMAKER, LOOP MONITOR Cardiac Surgery: Yes (PACER, VALVE REPLACEMENT) Pacemaker: Yes Other Surgery: Yes (CARPAL TUNNEL RIGHT WRIST, LIPOMA REMOVED) Family History Family Myocardial Infarction: Yes Social History Alcohol Use: No Tobacco Use: No Substance Use: No Allergies-Medications (Allergen,Severity, Reaction): Coded Allergies: ketorolac (Verified Allergy, Severe, Hallucinations, 06/06/17) latex (Verified Allergy, Intermediate, 06/06/17) Reported Meds & Prescriptions Reported Meds & Active Scripts Active Reported Coumadin (Warfarin) 7.5 Mg Tab 7.5 Mg PO TUWETHSASU Coumadin (Warfarin) 6 Mg Tab 11.5 Mg PO MOFR Amitriptyline (Amitriptyline HCl) 50 Mg Tab 50 Mg PO HS Metoprolol Tartrate 25 Mg Tab 25 Mg PO BID Aspirin Children's (Aspirin) 81 Mg Chew 81 Mg CHEW DAILY Review of Systems Except as stated in HPI: all other systems reviewed are Neg Physical Exam Narrative GENERAL: Well-nourished, well-developed male in no acute distress. Afebrile. Ambulatory. SKIN: Focused skin assessment warm/dry. There is a superficial abrasion to the left third finger on the dorsal aspect over the PIP joint. There is about 2 cm of surrounding erythema. There is lymphangitis extending up to the wrist. HEAD: Normocephalic. EYES: No scleral icterus. No injection or drainage. NECK: Supple, trachea midline. No JVD or lymphadenopathy. CARDIOVASCULAR: Regular rate and rhythm without murmurs, gallops, or rubs. RESPIRATORY: Breath sounds equal bilaterally. No accessory muscle use. MUSCULOSKELETAL: No cyanosis. Mild edema of the left third finger localized around the PIP joint. Limited range of motion secondary to pain and swelling. Mild to moderate tenderness to palpation. Data Data Last Documented VS Vital Signs Date Time Temp Pulse Resp B/P (MAP) Pulse Ox O2 Delivery O2 Flow Rate FiO2 06/06/17 17:06 87 131/80 (97) 98 06/06/17 11:52 98.4 18 Orders Orders Clindamycin Inj (Cleocin Inj) (06/06/17 13:00) Complete Blood Count With Diff (06/06/17 13:27) Comprehensive Metabolic Panel (06/06/17 13:27) Case Management Consult (06/06/17 ) Asp:No Reaction To [place]/Vanc (Asp Crit (06/06/17 13:30) Asp: Does Not Meet Inpt Admit (Asp Crit: (06/06/17 13:30) Asp: Iv Antibiotics Admit Only (Asp Crit (06/06/17 13:30) Asp: Location Of [facility] Admin (Asp Crit: (06/06/17 13:30) [facility] ([facility] (06/06/17 13:30) Dalbavancin Inj (Dalvance Inj) (06/06/17 13:27) Document (06/06/17 13:27) Measurements (06/06/17 13:27) Prothrombin Time / Inr (Pt) (06/06/17 13:43) Act Partial Throm Time (Ptt) (06/06/17 13:43) Labs Laboratory Tests Test 06/06/17 13:42 White Blood Count 8.4 TH/MM3 Red Blood Count 4.87 MIL/MM3 Hemoglobin 13.9 GM/DL Hematocrit 41.3 % Mean Corpuscular Volume 84.9 FL Mean Corpuscular Hemoglobin 28.5 PG Mean Corpuscular Hemoglobin Concent 33.6 % Red Cell Distribution Width 12.8 % Platelet Count 285 TH/MM3 Mean Platelet Volume 8.8 FL Neutrophils (%) (Auto) 68.7 % Lymphocytes (%) (Auto) 23.6 % Monocytes (%) (Auto) 4.2 % Eosinophils (%) (Auto) 2.7 % Basophils (%) (Auto) 0.8 % Neutrophils # (Auto) 5.8 TH/MM3 Lymphocytes # (Auto) 2.0 TH/MM3 Monocytes # (Auto) 0.4 TH/MM3 Eosinophils # (Auto) 0.2 TH/MM3 Basophils # (Auto) 0.1 TH/MM3 CBC Comment DIFF FINAL Differential Comment Prothrombin Time 39.5 SEC Prothromb Time International Ratio 3.9 RATIO Activated Partial Thromboplast Time 47.6 SEC Blood Urea Nitrogen 15 MG/DL Creatinine 1.30 MG/DL Random Glucose 95 MG/DL Total Protein 8.0 GM/DL Albumin 4.0 GM/DL Calcium Level 8.7 MG/DL Alkaline Phosphatase 89 U/L Aspartate Amino Transf (AST/SGOT) 27 U/L Alanine Aminotransferase (ALT/SGPT) 35 U/L Total Bilirubin 0.5 MG/DL Sodium Level 136 MEQ/L Potassium Level 4.0 MEQ/L Chloride Level 104 MEQ/L Carbon Dioxide Level 25.4 MEQ/L Anion Gap 7 MEQ/L Estimat Glomerular Filtration Rate 61 ML/MIN MDM Medical Decision Making Medical Screen Exam Complete: Yes Emergency Medical Condition: Yes Medical Record Reviewed: Yes Differential Diagnosis Cellulitis, folliculitis, bug bite, abscess, paronychia Narrative Course 41-year-old male presents to the emergency room for evaluation of left third finger pain, redness, and swelling that started last night and significantly increased overnight. Patient denies any fevers. Physical exam reveals a 2 cm area of erythema on the dorsal left third PIP joint. There is a 1 mm superficial abrasion at the center of the erythema and edema. No drainage. No fluctuance or induration. A faint line of lymphangitis is extending to the wrist. Patient was initially offered clindamycin but refused stating that the clindamycin would affect his INR which he has been working diligently to maintain in therapeutic ranges. Given recent history of aortic valve replacement and lymphangitis, patient will be started on Dalvance. IV access established and basic labs obtained. CBC and CMP are completely unremarkable. INR is supratherapeutic at 3.9. Patient was given medication and told to follow -up for repeat INR this week or return for worsening symptoms. He understands and agrees to plan. Diagnosis Primary Impression: Cellulitis of finger of left hand Referrals: Primary Care Physician Additional Instructions: Today you received Dalvance which is an antibiotic that stays in your system for 7 days. Follow up with her primary care physician, infectious disease doctor. Return for worsening symptoms. Disposition: 01 DISCHARGE HOME Condition: Stable Analisa Evans Jun 06, 2017 13:03
[2017-06-06] MEDS ORDERED: DALBAVANCIN INJ 1,500 MG in DEXTROSE 5% IN WATE 500 ML INJ 500 ML IV STA ×2 (13:27)
[2017-06-06] MEDS ORDERED: ASP: Does not meet inpatient admission criteria OTHER ONE (13:30)
[2017-06-06] MEDS ORDERED: ASP: Location of Dalbavancin administration OTHER ONE (13:30)
[2017-06-06] MEDS ORDERED: ASP: Only reason for admit - IV antibiotics OTHER ONE (13:30)
[2017-06-06] MEDS ORDERED: ASP: No known hypersensitivity to Vanco, Telavancin, Dalbavancin OTHER ONE (13:30)
[2017-06-06] MEDS ORDERED: MISCELLANEOUS PHARMACY INFORMATION XX ONE (13:30)
[2017-06-06 13:49] LABS: AUTOMATED NEUTROPHIL # 5.8 TH/MM3 (1.8-7.7); BASOPHIL # 0.1 TH/MM3 (0-0.2); BASOPHIL % 0.8 % (0.0-2.0); EOSINOPHIL # 0.2 TH/MM3 (0-0.4); EOSINOPHIL % 2.7 % (0.0-4.0); HEMATOCRIT 41.3 % (39.0-51.0); HEMOGLOBIN 13.9 GM/DL (13.0-17.0); LYMPH % 23.6 % (9.0-44.0); MEAN CELL VOLUME 84.9 FL (80.0-100.0); MEAN CORPUSCULAR HEMOGLOBIN 28.5 PG (27.0-34.0); MEAN CORPUSCULAR HGB CONC 33.6 % (32.0-36.0); MEAN PLATELET VOLUME 8.8 FL (7.0-11.0); MONO % 4.2 % (0.0-8.0); MONOCYTE # 0.4 TH/MM3 (0-0.9); NEUT % 68.7 % (16.0-70.0); PLATELET COUNT 285 TH/MM3 (150-450); RED BLOOD COUNT 4.87 MIL/MM3 (4.50-5.90); RED CELL DISTRIBUTION WIDTH 12.8 % (11.6-17.2); WHITE BLOOD COUNT 8.4 TH/MM3 (4.0-11.0)
[2017-06-06 14:04] LABS: CHLORIDE 104 MEQ/L (98-107); SODIUM (NA) 136 MEQ/L (136-145)
[2017-06-06 14:07] LABS: CALCIUM 8.7 MG/DL (8.5-10.1)
[2017-06-06 14:08] LABS: BICARBONATE 25.4 MEQ/L (21.0-32.0); BLOOD UREA NITROGEN 15 MG/DL (7-18); GLUCOSE,RANDOM 95 MG/DL (74-106)
[2017-06-06 14:09] LABS: INTERNATIONAL NORMALIZED RATIO 3.9 RATIO; PROTHROMBIN TIME - PATIENT 39.5 SEC (9.8-11.6)
[2017-06-06 14:11] LABS: ALT (GPT) 35 U/L (12-78); AST (GOT) 27 U/L (15-37); GLOMERULAR FILTRATION RATE 61 ML/MIN (>89)
[2017-06-06 14:12] LABS: TOTAL BILIRUBIN ADULT 0.5 MG/DL (0.2-1.0)
[2017-06-06 14:14] LABS: ALKALINE PHOSPHATASE 89 U/L (45-117)
[2017-06-06 17:06] VITALS: BP 131/80; PULSE 87; O2SAT 98
== END 2017-06-06 17:07 | disposition home or self-care (01) ==
LOC: PHEFT 11:11
DX: L03.012 Cellulitis of left finger (principal); Z95.2 Presence of prosthetic heart valve; I10 Essential (primary) hypertension; Z79.82 Long term (current) use of aspirin; Z79.01 Long term (current) use of anticoagulants
CPT/HCPCS: 80053; 85025; 85610; 85730; 96374; 99284; J0875; J7060

== ENCOUNTER 2017-06-14 22:42 | Emergency (ER) | payer SELFPAY ==
[~2017-06-14 22:42] MED LIST changes: +COUM6TAB PO; +COUM7.5T PO; -WARF-21 PO; -WARF-22 PO
[2017-06-14 22:57] VITALS: BP 133/92; PULSE 101; RESP 20; TEMP 101; TEMP 98.7; O2SAT 97
[2017-06-14 23:36] VITALS: TEMP 98.4
[2017-06-15 00:18] LABS: INTERNATIONAL NORMALIZED RATIO 3.3 RATIO; PROTHROMBIN TIME - PATIENT 33.4 SEC (9.8-11.6)
[2017-06-15 00:44] VITALS: BP 120/74; PULSE 95; RESP 16; TEMP 98.6; O2SAT 96
--- NOTE | 2017-06-15 00:48 | PD ---
HPI Chief Complaint: Abnormal Results Time Seen by Provider: 23:52 Travel History International Travel<30 days: No Contact w/Intl Traveler<30days: No Traveled to known affect area: No History of Present Illness HPI 41-year-old male presents to the emergency department to have an INR level checked. Patient is on Coumadin. Patient recently underwent CABG for coronary artery disease. Patient has had no fever no chills no sinus pressure drainage no sore throat no earache no neck pain no neck stiffness no chest pain no productive cough no shortness of breath no wheezing no abdominal pain no nausea no vomiting no diarrhea no constipation no dysuria frequency urgency no myalgias or arthralgias no joint pain or swelling and no skin rash. Patient states he has felt well but because of insurance issues does not have access to insurance in order to have his INR specimen collected at his home and because he is being scheduled for another procedure has been encouraged to monitor his blood sugars and his INR closely. PFSH Past Medical History Narrative Medical Anxiety depression CAD [place] CABG aortic valve pacemaker loop recorder; no tobacco use; nurse's notes reviewed Hx Anticoagulant Therapy: Yes Blood Disorders: No Anxiety: Yes Depression: Yes Heart Rhythm Problems: Yes Cancer: No Cardiac Catheterization: Yes Cardiovascular Problems: Yes High Cholesterol: No Chest Pain: Yes Congestive Heart Failure: No Diabetes: No Diminished Hearing: No Endocrine: No Gastrointestinal Disorders: No Genitourinary: No Hypertension: Yes Immune Disorder: No Implanted Vascular Access Dvce: Yes Musculoskeletal: No Neurologic: Yes (CHRONIC MIGRAINES) Psychiatric: Yes Reproductive: No Respiratory: No Immunizations Current: Yes Thyroid Disease: No Past Surgical History Body Medical Devices: PACEMAKER, LOOP MONITOR Cardiac Surgery: Yes (PACER, VALVE REPLACEMENT) Pacemaker: Yes Other Surgery: Yes (CARPAL TUNNEL RIGHT WRIST, LIPOMA REMOVED) Family History Family Myocardial Infarction: Yes Social History Alcohol Use: No Tobacco Use: No Substance Use: No Allergies-Medications (Allergen,Severity, Reaction): Coded Allergies: ketorolac (Verified Allergy, Severe, Hallucinations, 06/06/17) latex (Verified Allergy, Intermediate, 06/06/17) Reported Meds & Prescriptions Reported Meds & Active Scripts Active Reported Coumadin (Warfarin) 7.5 Mg Tab 7.5 Mg PO TUWETHSASU Coumadin (Warfarin) 6 Mg Tab 11.5 Mg PO MOFR Amitriptyline (Amitriptyline HCl) 50 Mg Tab 50 Mg PO HS Metoprolol Tartrate 25 Mg Tab 25 Mg PO BID Aspirin Children's (Aspirin) 81 Mg Chew 81 Mg CHEW DAILY Review of Systems Except as stated in HPI: all other systems reviewed are Neg Physical Exam Narrative GENERAL: Well-developed well-nourished male no acute distress no respiratory distress SKIN: Warm and dry. HEAD: Atraumatic. Normocephalic. EYES: Pupils equal and round. No scleral icterus. No injection or drainage. ENT: No nasal bleeding or discharge. Mucous membranes pink and moist. NECK: Trachea midline. No JVD. CARDIOVASCULAR: Regular rate and rhythm. RESPIRATORY: No accessory muscle use. Clear to auscultation. Breath sounds equal bilaterally. GASTROINTESTINAL: Abdomen soft, non-tender, nondistended. Hepatic and splenic margins not palpable. MUSCULOSKELETAL: Extremities without clubbing, cyanosis, or edema. No obvious deformities. NEUROLOGICAL: Awake and alert. No obvious cranial nerve deficits. Motor grossly within normal limits. Five out of 5 muscle strength in the arms and legs. Normal speech. PSYCHIATRIC: Appropriate mood and affect; insight and judgment normal. Data Data Last Documented VS Vital Signs Date Time Temp Pulse Resp B/P (MAP) Pulse Ox O2 Delivery O2 Flow Rate FiO2 06/15/17 00:44 98.6 95 16 120/74 (89) 96 Room Air Orders Orders Prothrombin Time / Inr (Pt) (06/14/17 23:52) Ed Discharge Order (06/15/17 00:46) Labs Laboratory Tests Test 06/14/17 23:56 Prothrombin Time 33.4 SEC Prothromb Time International Ratio 3.3 RATIO MDM Medical Decision Making Medical Screen Exam Complete: Yes Emergency Medical Condition: Yes Medical Record Reviewed: Yes Differential Diagnosis INR level, supratherapeutic/subtherapeutic anticoagulation Narrative Course Patient with known prosthetic valve and recent CABG for CAD presents for evaluation. Patient has recently been through surgery with CABG and pacemaker placement as well as loop recorder and identified to require anticoagulation. Patient takes Coumadin. Patient is noted over the past several weeks that he has not been able to have his INR checked as planned but due to insurance issues. Patient denies fever chills nausea vomiting cough congestion sore throat earache sinus pressure drainage neck pain or stiffness. Diagnosis Primary Impression: Anticoagulation goal of INR 2.5 to 3.5 Referrals: Primary Care Physician call for appointment Patient Instructions: General Instructions Departure Forms: Tests/Procedures Additional Instructions: Continue current medications as presently prescribed Monitor temperature every 4 hours with a thermometer take as needed acetaminophen/Tylenol for fever 100.4F or greater Return to the emergency department for any concerns or for fever 100.4F or greater Follow-up with your primary care provider Disposition: 01 DISCHARGE HOME Condition: Stable Ailin Pool MD Jun 15, 2017 00:48
== END 2017-06-15 00:54 | disposition home or self-care (01) ==
LOC: PHED 22:42
DX: Z51.81 Encounter for therapeutic drug level monitoring (principal); Z79.01 Long term (current) use of anticoagulants; I25.10 Atherosclerotic heart disease of native coronary artery without angina pectoris; I25.2 Old myocardial infarction; I10 Essential (primary) hypertension; F32.9 Major depressive disorder, single episode, unspecified; Z95.1 Presence of aortocoronary bypass graft; Z95.2 Presence of prosthetic heart valve; Z95.0 Presence of cardiac pacemaker; Z88.8 Allergy status to other drugs, medicaments and biological substances; Z91.040 Latex allergy status
CPT/HCPCS: 85610; 99283

== ENCOUNTER 2017-07-11 20:11 | Emergency (ER) | payer MEDICARE ==
[~2017-07-11] VITALS: Ht 175.3 cm; Wt 97.0 kg
[2017-07-11 20:27] VITALS: BP 143/89; PULSE 106; RESP 18; TEMP 97.9; O2SAT 98
[2017-07-11 20:35] VITALS: BP 143/89; PULSE 106; RESP 16; TEMP 97.9; O2SAT 97
[2017-07-11 21:00] VITALS: BP 131/94; PULSE 110; RESP 18; O2SAT 96
--- NOTE | 2017-07-11 21:00 | PD ---
HPI Chief Complaint: leg pain Time Seen by Provider: 20:36 Travel History International Travel<30 days: No Contact w/Intl Traveler<30days: No Traveled to known affect area: No History of Present Illness HPI This patient noticed a painful lump on the back of his left leg and was worried about a DVT. That is his chief complaint. He noticed this 2 weeks ago. He also noticed that he had a rash on the front of both lower legs. Has been going on for 3 or 4 days. He also has had some generalized weakness. Symptoms of moderate severity. No alleviating factors. No exacerbating factors. He is on Coumadin for artificial valve. He has bypass grafting history. No history of DVT. He has not had any chest pain or chest symptoms. PFSH Past Medical History Hx Anticoagulant Therapy: Yes Blood Disorders: No Anxiety: Yes Depression: Yes Heart Rhythm Problems: Yes Cancer: No Cardiac Catheterization: Yes Cardiovascular Problems: Yes High Cholesterol: No Chest Pain: Yes Congestive Heart Failure: No Diabetes: No Diminished Hearing: No Endocrine: No Gastrointestinal Disorders: No Genitourinary: No Hypertension: Yes Immune Disorder: No Implanted Vascular Access Dvce: Yes Musculoskeletal: No Neurologic: Yes (CHRONIC MIGRAINES) Psychiatric: Yes Reproductive: No Respiratory: No Immunizations Current: Yes Thyroid Disease: No Past Surgical History Body Medical Devices: PACEMAKER, LOOP MONITOR Cardiac Surgery: Yes (PACER, VALVE REPLACEMENT) Pacemaker: Yes Other Surgery: Yes (CARPAL TUNNEL RIGHT WRIST, LIPOMA REMOVED) Social History Alcohol Use: No Tobacco Use: No Substance Use: No Allergies-Medications (Allergen,Severity, Reaction): Coded Allergies: ketorolac (Verified Allergy, Severe, Hallucinations, 07/11/17) latex (Verified Allergy, Intermediate, 07/11/17) Reported Meds & Prescriptions Reported Meds & Active Scripts Active Reported Coumadin (Warfarin) 7.5 Mg Tab 7.5 Mg PO WEASU Coumadin (Warfarin) 6 Mg Tab 11.5 Mg PO MOFR Amitriptyline (Amitriptyline HCl) 50 Mg Tab 50 Mg PO HS Metoprolol Tartrate 25 Mg Tab 25 Mg PO BID Aspirin Children's (Aspirin) 81 Mg Chew 81 Mg CHEW DAILY Review of Systems General / Constitutional: No: Fever Eyes: No: Visual changes HENT: No: Headaches Cardiovascular: No: Chest Pain or Discomfort Respiratory: No: Shortness of Breath Gastrointestinal: No: Abdominal Pain Genitourinary: No: Dysuria Musculoskeletal: Positive: Myalgias, Weakness, Pain Skin: Positive Rash Neurologic: Positive: Weakness Psychiatric: No: Depression Endocrine: No: Polydipsia Hematologic/Lymphatic: No: Easy Bruising Physical Exam Narrative GENERAL: Well-nourished, well-developed patient in no apparent distress. SKIN: Focused skin assessment reveals a fine petechial rash over the anterior lower legs bilaterally. Skin is Warm and dry. HEAD: Atraumatic. Normocephalic. EYES: Pupils equal and round. No scleral icterus. No injection or drainage. ENT: No nasal bleeding or discharge. Mucous membranes pink and moist. NECK: Trachea midline. No JVD. CARDIOVASCULAR: Regular rate and rhythm. No murmur appreciated. RESPIRATORY: No accessory muscle use. Clear to auscultation. Breath sounds equal bilaterally. GASTROINTESTINAL: Abdomen soft, non-tender, nondistended. Hepatic and splenic margins not palpable. MUSCULOSKELETAL: No obvious deformities. No clubbing. No cyanosis. No edema. Patient has a tender area on the back of a left lower calf. It could be a cord representing thrombophlebitis. Definitely not a DVT. NEUROLOGICAL: Awake and alert. No obvious cranial nerve deficits. Motor grossly within normal limits. Normal speech. PSYCHIATRIC: Appropriate mood and affect; insight and judgment normal. Data Data Last Documented VS Vital Signs Date Time Temp Pulse Resp B/P (MAP) Pulse Ox O2 Delivery O2 Flow Rate FiO2 07/11/17 20:35 97.9 106 16 143/89 (107) 97 Orders Orders Electrocardiogram (07/11/17 ) Complete Blood Count With Diff (07/11/17 20:49) Basic Metabolic Panel (Bmp) (07/11/17 20:49) Iv Access Insert/Monitor (07/11/17 20:49) Prothrombin Time / Inr (Pt) (07/11/17 20:49) Ondansetron Inj (Zofran Inj) (07/11/17 22:45) Labs Laboratory Tests Test 07/11/17 21:22 White Blood Count 9.9 TH/MM3 Red Blood Count 5.04 MIL/MM3 Hemoglobin 14.6 GM/DL Hematocrit 43.3 % Mean Corpuscular Volume 85.9 FL Mean Corpuscular Hemoglobin 29.0 PG Mean Corpuscular Hemoglobin Concent 33.8 % Red Cell Distribution Width 12.8 % Platelet Count 315 TH/MM3 Mean Platelet Volume 9.1 FL Neutrophils (%) (Auto) 67.7 % Lymphocytes (%) (Auto) 21.1 % Monocytes (%) (Auto) 6.0 % Eosinophils (%) (Auto) 2.3 % Basophils (%) (Auto) 2.9 % Neutrophils # (Auto) 6.7 TH/MM3 Lymphocytes # (Auto) 2.1 TH/MM3 Monocytes # (Auto) 0.6 TH/MM3 Eosinophils # (Auto) 0.2 TH/MM3 Basophils # (Auto) 0.3 TH/MM3 CBC Comment DIFF FINAL Differential Comment Prothrombin Time 41.0 SEC Prothromb Time International Ratio 4.1 RATIO Blood Urea Nitrogen 14 MG/DL Creatinine 1.50 MG/DL Random Glucose 82 MG/DL Calcium Level 8.8 MG/DL Sodium Level 140 MEQ/L Potassium Level 4.3 MEQ/L Chloride Level 104 MEQ/L Carbon Dioxide Level 28.0 MEQ/L Anion Gap 8 MEQ/L Estimat Glomerular Filtration Rate 51 ML/MIN MDM Medical Decision Making Medical Screen Exam Complete: Yes Emergency Medical Condition: Yes Medical Record Reviewed: Yes Differential Diagnosis Petechial rash, thrombocytopenia, electrolyte abnormality, cardiac arrhythmia Narrative Course I have reviewed the patient's electronic medical record. Patient was seen here recently for INR recheck IV placed CBC is normal Metabolic profile shows normal electrolytes with minor elevation in creatinine INR on Coumadin is 4.1 and I've advised him to not take it tomorrow I reviewed his EKG which shows paced rhythm. QRS complex is wide as expected I can rule out DVT on a clinical basis. Also, he is on Coumadin for artificial valve. Stable for outpatient follow-up Diagnosis Primary Impression: Left leg pain Additional Impressions: Generalized weakness Supratherapeutic INR Petechial rash Additional Instructions: The patient was advised to follow up with their physician and return if they worsen. Do not take Coumadin tomorrow Med/Other Pt SpecificInfo: Other Disposition: 01 DISCHARGE HOME Condition: Stable Sarthak Fisher MD Jul 11, 2017 20:59
[2017-07-11 21:37] LABS: AUTOMATED NEUTROPHIL # 6.7 TH/MM3 (1.8-7.7); BASOPHIL # 0.3 TH/MM3 (0-0.2); BASOPHIL % 2.9 % (0.0-2.0); EOSINOPHIL # 0.2 TH/MM3 (0-0.4); EOSINOPHIL % 2.3 % (0.0-4.0); HEMATOCRIT 43.3 % (39.0-51.0); HEMOGLOBIN 14.6 GM/DL (13.0-17.0); LYMPH % 21.1 % (9.0-44.0); LYMPHOCYTE # 2.1 TH/MM3 (1.0-4.8); MEAN CELL VOLUME 85.9 FL (80.0-100.0); MEAN CORPUSCULAR HGB CONC 33.8 % (32.0-36.0); MEAN PLATELET VOLUME 9.1 FL (7.0-11.0); MONOCYTE # 0.6 TH/MM3 (0-0.9); NEUT % 67.7 % (16.0-70.0); PLATELET COUNT 315 TH/MM3 (150-450); RED BLOOD COUNT 5.04 MIL/MM3 (4.50-5.90); RED CELL DISTRIBUTION WIDTH 12.8 % (11.6-17.2); WHITE BLOOD COUNT 9.9 TH/MM3 (4.0-11.0)
[2017-07-11 22:02] LABS: CALCIUM 8.8 MG/DL (8.5-10.1)
[2017-07-11 22:03] LABS: INTERNATIONAL NORMALIZED RATIO 4.1 RATIO
[2017-07-11 22:06] LABS: CREATININE 1.5 MG/DL (0.60-1.30)
[2017-07-11] MEDS ORDERED: ONDANSETRON HCL 4 MG/2 ML VIAL IVP ONE (22:45)
[2017-07-11 23:00] VITALS: BP 124/92; PULSE 96; RESP 16; O2SAT 98
--- NOTE | 2017-07-12 20:35 | EKG ---
Date Performed: 07/11/2017 Time Performed: 20:57:04 PTAGE: 41 years EKG: ELECTRONIC VENTRICULAR PACEMAKER ABNORMAL RHYTHM ECG PREVIOUS TRACING : 03/10/2017 02.03 Since the previous tracing, no significant change noted DOCTOR: Quentin Paredes Interpretating Date/Time 07/12/2017 20:34:22
== END 2017-07-11 23:09 | disposition home or self-care (01) ==
LOC: PHED 20:11
DX: M79.605 Pain in left leg (principal); R53.1 Weakness; R79.1 Abnormal coagulation profile; R23.3 Spontaneous ecchymoses; R21 Rash and other nonspecific skin eruption; R94.31 Abnormal electrocardiogram [ECG] [EKG]; I10 Essential (primary) hypertension; F41.8 Other specified anxiety disorders; Z79.01 Long term (current) use of anticoagulants; Z95.2 Presence of prosthetic heart valve; Z95.1 Presence of aortocoronary bypass graft; Z86.79 Personal history of other diseases of the circulatory system; Z86.69 Personal history of other diseases of the nervous system and sense organs
CPT/HCPCS: 80048; 85025; 85610; 93005; 96374; 99284; J2405

== ENCOUNTER 2017-07-18 23:11 | Emergency (ER) | payer MEDICARE, MEDICAID ==
[~2017-07-18] VITALS: Ht 175.3 cm; Wt 97.0 kg
[2017-07-18 23:13] VITALS: BP 161/92; PULSE 100; RESP 18; TEMP 98.3; O2SAT 98
[2017-07-18] MEDS ORDERED: COUM5TAB PO (23:25)
[2017-07-18] MEDS ORDERED: ZOLP10TA3 PO (23:28)
[2017-07-18] MEDS ORDERED: NEOM1SOL7 RIGHT EAR (23:28)
[2017-07-18] MEDS ORDERED: WARF-21 PO (23:28)
[2017-07-18] MEDS ORDERED: AMOX500C PO (23:47)
--- NOTE | 2017-07-18 23:48 | PD ---
HPI Chief Complaint: ENT Complaint Time Seen by Provider: 23:22 Travel History International Travel<30 days: No Contact w/Intl Traveler<30days: No Traveled to known affect area: No History of Present Illness HPI The patient is a 41-year-old male that has had a right earache for 24 hours. He knows it is an otitis externa. He has been given Cortisporin otic drops for this. He states the ear canal has closed off and he is not getting any drops into his ear canal. He complains of facial swelling and pain in the teeth and jaw. He has an aortic valve and is on Coumadin for this. He claims a pain level of 10/10. He states he has a history of severe anxiety. PFSH Past Medical History Hx Anticoagulant Therapy: Yes Blood Disorders: No Anxiety: Yes Depression: Yes Heart Rhythm Problems: Yes Cancer: No Cardiac Catheterization: Yes Cardiovascular Problems: Yes High Cholesterol: No Chest Pain: Yes Congestive Heart Failure: No Diabetes: No Diminished Hearing: No Endocrine: No Gastrointestinal Disorders: No Genitourinary: No Hypertension: Yes Immune Disorder: No Implanted Vascular Access Dvce: Yes Musculoskeletal: No Neurologic: Yes (CHRONIC MIGRAINES) Psychiatric: Yes Reproductive: No Respiratory: No Immunizations Current: Yes Thyroid Disease: No Tetanus Vaccination: Unknown Past Surgical History Body Medical Devices: PACEMAKER, LOOP MONITOR Cardiac Surgery: Yes (PACER, VALVE REPLACEMENT) Pacemaker: Yes Other Surgery: Yes (CARPAL TUNNEL RIGHT WRIST, LIPOMA REMOVED) Family History Family Myocardial Infarction: Yes Social History Alcohol Use: No Tobacco Use: No Substance Use: No Allergies-Medications (Allergen,Severity, Reaction): Coded Allergies: ketorolac (Verified Allergy, Severe, Hallucinations, 07/18/17) latex (Verified Allergy, Intermediate, 07/18/17) Reported Meds & Prescriptions Reported Meds & Active Scripts Active Reported Wetfgest-Wjmzzczbe-OL Otic Drops 3.5-10,000-1 Mg-Units-% Soln 4 Drop RIGHT EAR QID Zolpidem (Zolpidem Tartrate) 10 Mg Tab 10 Mg PO HS PRN Warfarin 7.5 Mg Tab 7.5 Mg PO MON,FR Coumadin (Warfarin) 7.5 Mg Tab 7.5 Mg PO TUWETHSASU Amitriptyline (Amitriptyline HCl) 50 Mg Tab 50 Mg PO HS Metoprolol Tartrate 25 Mg Tab 25 Mg PO BID Aspirin Children's (Aspirin) 81 Mg Chew 81 Mg CHEW DAILY Review of Systems Except as stated in HPI: all other systems reviewed are Neg Physical Exam Narrative GENERAL: Well-nourished, well-developed patient in moderate to severe distress with his right ear pain. His vital signs show blood pressure 161/92 with heart rate 100 but are otherwise normal. SKIN: Focused skin assessment warm/dry. HEAD: Normocephalic. EYES: No scleral icterus. No injection or drainage. NECK: Supple, trachea midline. No JVD or lymphadenopathy. CARDIOVASCULAR: Regular rate and rhythm without murmurs, gallops, or rubs. RESPIRATORY: Breath sounds equal bilaterally. No accessory muscle use. GASTROINTESTINAL: Abdomen soft, non-tender, nondistended. MUSCULOSKELETAL: No cyanosis, or edema. BACK: Nontender without obvious deformity. No CVA tenderness. ENT: The right canal is tightly closed and I cannot see the tympanic membrane. Left ear canal is normal and tympanic membrane is normal. I cannot see any obvious facial swelling and there is no dental tenderness. Data Data Last Documented VS Vital Signs Date Time Temp Pulse Resp B/P (MAP) Pulse Ox O2 Delivery O2 Flow Rate FiO2 07/18/17 23:13 98.3 100 18 161/92 (115) 98 MDM Medical Decision Making Medical Screen Exam Complete: Yes Emergency Medical Condition: Yes Medical Record Reviewed: Yes Differential Diagnosis Otitis externa, malignant otitis externa, otitis media Narrative Course The patient appears to have an otitis externa. He has canal is tightly closed and drops will not get in the canal. Procedures Procedure Narrative A Xomed wick was inserted in the right ear. Cortisporin otic drops were instilled onto the wick. The procedure was painful to the patient but he tolerated the pain adequately. The pain stayed the same before and after the wick was inserted. Diagnosis Primary Impression: Otitis externa Additional Instructions: The amoxicillin is taken 1 tablet 3 times daily. Follow-up with a primary care physician as soon as possible. You may need to see an janitorial assistant (ENT ). Med/Other Pt SpecificInfo: Prescription(s) given Scripts Amoxicillin (Amoxicillin) 500 Mg Cap 500 MG PO TID for Infection for 10 Days, CAP 0 Refills Prov: Shashi Moses MD 07/18/17 Disposition: 01 DISCHARGE HOME Condition: Stable Shashi Moses MD Jul 18, 2017 23:48
[2017-07-18] MEDS ORDERED: PERC5TAB12 PO (23:51)
[2017-07-19] MEDS ORDERED: AMOXICILLIN 875 MG TAB PO ONE
[2017-07-19] MEDS ORDERED: oxyCODONE/ACETAMINOPHEN 7.5 MG/325 MG TAB PO ONE
[2017-07-19 00:25] VITALS: BP 136/87
== END 2017-07-19 00:27 | disposition home or self-care (01) ==
LOC: PHED 23:11
DX: H60.91 Unspecified otitis externa, right ear (principal); I10 Essential (primary) hypertension; F41.9 Anxiety disorder, unspecified; F32.9 Major depressive disorder, single episode, unspecified; Z95.0 Presence of cardiac pacemaker; Z95.2 Presence of prosthetic heart valve; Z88.8 Allergy status to other drugs, medicaments and biological substances; Z79.01 Long term (current) use of anticoagulants; Z79.899 Other long term (current) drug therapy
CPT/HCPCS: 99283

== ENCOUNTER 2017-07-19 20:02 | Emergency (ER) | payer MEDICARE, MEDICAID ==
[~2017-07-19] VITALS: Ht 175.3 cm; Wt 96.3 kg
[~2017-07-19 20:02] MED LIST changes: +AMOX500C PO; +COUM5TAB PO; +NEOM1SOL7 RIGHT EAR; +PERC5TAB12 PO; +WARF-21 PO; +ZOLP10TA3 PO
[2017-07-19 20:44] VITALS: BP 123/90; PULSE 97; RESP 18; TEMP 98.5; O2SAT 97
[2017-07-19 21:27] VITALS: BP 123/90; PULSE 97; RESP 16; TEMP 98.5; O2SAT 97
--- NOTE | 2017-07-19 22:09 | PD ---
HPI Chief Complaint: ENT Complaint Time Seen by Provider: 22:05 Travel History International Travel<30 days: No Contact w/Intl Traveler<30days: No Traveled to known affect area: No History of Present Illness HPI The patient is a 41-year-old male that complains of right ear pain and swelling and was seen yesterday by myself in [address] Kimbrough. He was prescribed Cortisporin otic drops, he could not afford the original prescription, by Dr. Kimbrough. He could not get the drops in because ear canal was closed tightly. Yesterday a Xomed wick was put in and Cortisporin suspension was instilled onto the wick. The patient states his pain is still severe and he returned. PFSH Past Medical History Hx Anticoagulant Therapy: Yes Blood Disorders: No Anxiety: Yes Depression: Yes Heart Rhythm Problems: Yes Cancer: No Cardiac Catheterization: Yes Cardiovascular Problems: Yes High Cholesterol: No Chest Pain: Yes Congestive Heart Failure: No Diabetes: No Diminished Hearing: No Endocrine: No Gastrointestinal Disorders: No Genitourinary: No Hypertension: Yes Immune Disorder: No Implanted Vascular Access Dvce: Yes Musculoskeletal: No Neurologic: Yes (CHRONIC MIGRAINES) Psychiatric: Yes Reproductive: No Respiratory: No Immunizations Current: Yes Thyroid Disease: No Influenza Vaccination: No Past Surgical History Body Medical Devices: PACEMAKER, LOOP MONITOR Cardiac Surgery: Yes (PACER, VALVE REPLACEMENT) Pacemaker: Yes Other Surgery: Yes (CARPAL TUNNEL RIGHT WRIST, LIPOMA REMOVED) Family History Family Myocardial Infarction: Yes Social History Alcohol Use: No Tobacco Use: No Substance Use: No Allergies-Medications (Allergen,Severity, Reaction): Coded Allergies: ketorolac (Verified Allergy, Severe, Hallucinations, 07/18/17) latex (Verified Allergy, Intermediate, 07/18/17) Reported Meds & Prescriptions Reported Meds & Active Scripts Active Percocet (Oxycodone-Acetaminophen) 5-325 mg Tab 1-2 Tab PO Q4H PRN Amoxicillin 500 Mg Cap 500 Mg PO TID 10 Days Reported Ncwlohwp-Cidvcfzom-OH Otic Drops 3.5-10,000-1 Mg-Units-% Soln 4 Drop RIGHT EAR QID Zolpidem (Zolpidem Tartrate) 10 Mg Tab 10 Mg PO HS PRN Warfarin 7.5 Mg Tab 7.5 Mg PO MON,FR Coumadin (Warfarin) 7.5 Mg Tab 7.5 Mg PO Amitriptyline (Amitriptyline HCl) 50 Mg Tab 50 Mg PO HS Metoprolol Tartrate 25 Mg Tab 25 Mg PO BID Aspirin Children's (Aspirin) 81 Mg Chew 81 Mg CHEW DAILY Review of Systems Except as stated in HPI: all other systems reviewed are Neg Physical Exam Narrative GENERAL: Well-nourished, well-developed patient in moderate apparent distress with his right ear discomfort. His vital signs are normal. SKIN: Focused skin assessment warm/dry. HEAD: Normocephalic. I cannot see any facial swelling, the patient can feel facial swelling but I cannot see it externally. EYES: No scleral icterus. No injection or drainage. NECK: Supple, trachea midline. No JVD or lymphadenopathy. CARDIOVASCULAR: Regular rate and rhythm without murmurs, gallops, or rubs. RESPIRATORY: Breath sounds equal bilaterally. No accessory muscle use. GASTROINTESTINAL: Abdomen soft, non-tender, nondistended. MUSCULOSKELETAL: No cyanosis, or edema. BACK: Nontender without obvious deformity. No CVA tenderness. ENT: The right ear canal has opened up considerably and drops are easily able to be instilled into the right ear canal. They go all the way to the eardrum. The right tympanic membrane is normal. Data Data Last Documented VS Vital Signs Date Time Temp Pulse Resp B/P (MAP) Pulse Ox O2 Delivery O2 Flow Rate FiO2 07/19/17 21:27 98.5 97 16 123/90 (101) 97 Orders Orders Ovecupye-Kddbdvjz-Gw Otic Susp (Cortispo (07/19/17 22:15) [facility] Medical Decision Making Medical Screen Exam Complete: Yes Emergency Medical Condition: Yes Medical Record Reviewed: Yes Differential Diagnosis Otitis externa, otitis media, malignant otitis externa-highly likely Narrative Course By every physical parameter, the patient is getting better. After the air wick has been removed the patient ear pain decreased. He agrees that his facial swelling has decreased and is only localized around the ear now. The ear canal is open and the patient is able to put eardrops into his right ear without a problem. The patient admits he is feeling much better. The still insists that the patient be admitted. I called Dr. Barkley who was covering for ENT and, in fact, the patient is seen Dr. Barkley before. A follow-up appointment tomorrow with scheduled but the patient states he cannot afford a cab fair. Later, the patient admitted to Dr. Barkley was not seen until he paid an old bill for sinus treatment. Dr. Barkley graciously stated he would see the patient tomorrow afternoon by appointment. Procedures Procedure Narrative The ear wick was removed and Cortisporin otic drops were instilled into the right ear. The patient had considerable relief with removal of the airway. The canal has opened up considerably and eardrops are able to come in without a wick. Disposition: 01 DISCHARGE HOME Condition: Stable Shashi Moses MD Jul 19, 2017 22:09
[2017-07-19] MEDS ORDERED: NEOMYCIN/POLYMYXIN/HYDROCORT OTIC SUSP 10 ML BTL RIGHT EAR ONE (22:15)
[2017-07-19 22:46] VITALS: BP 131/74; PULSE 102; RESP 16; TEMP 98.8; O2SAT 97
== END 2017-07-19 22:52 | disposition home or self-care (01) ==
LOC: PHEFT 20:02
DX: H60.91 Unspecified otitis externa, right ear (principal); I10 Essential (primary) hypertension; F41.9 Anxiety disorder, unspecified; F32.9 Major depressive disorder, single episode, unspecified; Z95.0 Presence of cardiac pacemaker; Z95.2 Presence of prosthetic heart valve; Z88.8 Allergy status to other drugs, medicaments and biological substances; Z79.01 Long term (current) use of anticoagulants; Z79.899 Other long term (current) drug therapy
CPT/HCPCS: 99282

== ENCOUNTER 2017-08-27 19:59 | Observation (INO) | payer MEDICARE, MEDICAID ==
[~2017-08-27] VITALS: Ht 175.3 cm; Wt 100.0 kg
[~2017-08-27 19:59] MED LIST changes: -COUM5TAB PO; -COUM6TAB PO
[2017-08-27 20:05] VITALS: BP 130/92; PULSE 79; RESP 16; TEMP 98.1; O2SAT 96
[2017-08-27] MEDS ORDERED: SODIUM CHLOR 0.9% 1000 ML INJ 1,000 ML IV ONE (20:14)
[2017-08-27] MEDS ORDERED: SODIUM CHLORIDE 0.9% FLUSH 10 ML FLUSH IVF PRN (20:15)
--- NOTE | 2017-08-27 20:18 | PD ---
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 Patient was in the shower when he became lightheaded. He states he began to see black and the next thing he knows he woke up on the ground. He is reporting right facial and head pain. He has been nauseous since the fall. Denies any other focal deficits weakness. No chest pain or tightness. No difficulty breathing. Patient is uncertain of his pacemaker company. Denies any other symptoms at this time. 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 [facility] Past Medical History Hx Anticoagulant Therapy: Yes Blood Disorders: No Anxiety: Yes Depression: Yes Heart Rhythm Problems: Yes Cancer: No Cardiac Catheterization: Yes Cardiovascular Problems: Yes High Cholesterol: No Chest Pain: Yes Congestive Heart Failure: No Diabetes: No Diminished Hearing: No Endocrine: No Gastrointestinal Disorders: No Genitourinary: No Hypertension: Yes Immune Disorder: No Implanted Vascular Access Dvce: Yes Musculoskeletal: No Neurologic: Yes (CHRONIC MIGRAINES) Psychiatric: Yes Reproductive: No Respiratory: No Immunizations Current: Yes Thyroid Disease: No Past Surgical History Body Medical Devices: PACEMAKER, LOOP MONITOR Cardiac Surgery: Yes (PACER, VALVE REPLACEMENT) Pacemaker: Yes Other Surgery: Yes (CARPAL TUNNEL RIGHT WRIST, LIPOMA REMOVED) Family History Family Myocardial Infarction: Yes Social History Alcohol Use: No Tobacco Use: No Substance Use: No Allergies-Medications (Allergen,Severity, Reaction): Coded Allergies: ketorolac (Verified Allergy, Severe, Hallucinations, 08/27/17) latex (Verified Allergy, Intermediate, 08/27/17) Reported Meds & Prescriptions Reported Meds & Active Scripts Active Reported Warfarin 10 Mg Tab 11.5 Mg PO MON,FR Trazodone (Trazodone HCl) 50 Mg Tab 50 Mg PO HS Coumadin (Warfarin) 7.5 Mg Tab 7.5 Mg PO TUWEAS Metoprolol Tartrate 25 Mg Tab 25 Mg PO BID Aspirin Children's (Aspirin) 81 Mg Chew 81 Mg CHEW DAILY Review of Systems Except as stated in HPI: all other systems reviewed are Neg Physical Exam Narrative GENERAL: Well-nourished male patient, in no acute distress SKIN: Focused skin assessment warm/dry. HEAD: Tenderness elicited palpation of the right cheek. Normocephalic. EYES: Pupils equal and round. No scleral icterus. No injection or drainage. EOMI. PERRLA ENT: No nasal bleeding or discharge. Mucous membranes pink and moist. NECK: Trachea midline. No JVD. CARDIOVASCULAR: Regular rate and rhythm. No murmur appreciated. RESPIRATORY: No accessory muscle use. Clear to auscultation. Breath sounds equal bilaterally. GASTROINTESTINAL: Abdomen soft, non-tender, nondistended. Hepatic and splenic margins not palpable. MUSCULOSKELETAL: No obvious deformities. No clubbing. No cyanosis. No edema. NEUROLOGICAL: Awake and alert. No obvious cranial nerve deficits. Motor grossly within normal limits. Normal speech. PSYCHIATRIC: Appropriate mood and affect; insight and judgment normal. Data Data Last Documented VS Vital Signs Date Time Temp Pulse Resp B/P (MAP) Pulse Ox O2 Delivery O2 Flow Rate FiO2 08/27/17 20:21 20 96 Room Air 08/27/17 20:05 98.1 79 130/92 (105) Orders Orders Electrocardiogram (08/27/17 20:14) Basic Metabolic Panel (Bmp) (08/27/17 20:14) Complete Blood Count With Diff (08/27/17 20:14) Ckmb (Isoenzyme) Profile (08/27/17 20:14) Troponin I (08/27/17 20:14) Act Partial Throm Time (Ptt) (08/27/17 20:14) Prothrombin Time / Inr (Pt) (08/27/17 20:14) Urinalysis - C+S If Indicated (08/27/17 20:14) Chest, Single Ap (08/27/17 20:14) Ct Brain W/O Iv Contrast(Rout) (08/27/17 20:14) Ct Cerv Spine W/O Contrast (08/27/17 20:14) Ecg Monitoring (08/27/17 20:14) Iv Access Insert/Monitor (08/27/17 20:14) Oximetry (08/27/17 20:14) Sodium Chloride 0.9% Flush (Ns Flush) (08/27/17 20:15) Sodium Chlor 0.9% 1000 Ml Inj (Ns 1000 M (08/27/17 20:14) Ct Facial Bones W/O Iv Cont (08/27/17 ) Orthostatic Vital Signs (08/27/17 20:14) CKMB (08/27/17 20:20) CKMB% (08/27/17 20:20) Elbow, Complete (4 Vws) (08/27/17 ) Labs Laboratory Tests Test 08/27/17 20:20 08/27/17 22:05 White Blood Count 7.9 TH/MM3 Red Blood Count 4.62 MIL/MM3 Hemoglobin 13.7 GM/DL Hematocrit 39.6 % Mean Corpuscular Volume 85.7 FL Mean Corpuscular Hemoglobin 29.6 PG Mean Corpuscular Hemoglobin Concent 34.6 % Red Cell Distribution Width 13.7 % Platelet Count 239 TH/MM3 Mean Platelet Volume 9.5 FL Neutrophils (%) (Auto) 62.7 % Lymphocytes (%) (Auto) 25.9 % Monocytes (%) (Auto) 7.2 % Eosinophils (%) (Auto) 3.1 % Basophils (%) (Auto) 1.1 % Neutrophils # (Auto) 4.9 TH/MM3 Lymphocytes # (Auto) 2.0 TH/MM3 Monocytes # (Auto) 0.6 TH/MM3 Eosinophils # (Auto) 0.2 TH/MM3 Basophils # (Auto) 0.1 TH/MM3 CBC Comment DIFF FINAL Differential Comment Prothrombin Time 31.8 SEC Prothromb Time International Ratio 3.2 RATIO Activated Partial Thromboplast Time 43.7 SEC Blood Urea Nitrogen 18 MG/DL Creatinine 1.53 MG/DL Random Glucose 118 MG/DL Calcium Level 8.8 MG/DL Sodium Level 138 MEQ/L Potassium Level 3.8 MEQ/L Chloride Level 105 MEQ/L Carbon Dioxide Level 25.3 MEQ/L Anion Gap 8 MEQ/L Estimat Glomerular Filtration Rate 50 ML/MIN Total Creatine Kinase 351 U/L Creatine Kinase MB 2.4 NG/ML Creatine Kinase MB % 0.7 % Troponin I LESS THAN 0.02 NG/ML Urine Color LIGHT-YELLOW Urine Turbidity CLEAR Urine pH 5.5 Urine Specific [place] 1.007 Urine Protein NEG mg/dL Urine Glucose (UA) NEG mg/dL Urine Ketones NEG mg/dL Urine Occult Blood NEG Urine Nitrite NEG Urine Bilirubin NEG Urine Urobilinogen LESS THAN 2.0 MG/DL Urine Leukocyte Esterase NEG Urine WBC LESS THAN 1 /hpf Urine Mucus FEW /lpf Microscopic Urinalysis Comment CULT NOT INDICATED MDM Medical Decision Making Medical Screen Exam Complete: Yes Emergency Medical Condition: Yes Medical Record Reviewed: Yes Differential Diagnosis Syncope versus near syncope versus electrolyte abnormality versus arrhythmia versus orthostatic hypotension Narrative Course 42-year-old male presents emergency department for evaluation following a syncopal episode that occurred in the shower this evening. Patient did strike his face and head. CT imaging is ordered of the brain, face, neck as he is on Coumadin. He is otherwise awake, alert, oriented 4. He has no focal deficits or weakness. EKG is complete reviewed by my attending. Laboratory Tests Test 08/27/17 20:20 White Blood Count 7.9 TH/MM3 Red Blood Count 4.62 MIL/MM3 Hemoglobin 13.7 GM/DL Hematocrit 39.6 % Mean Corpuscular Volume 85.7 FL Mean Corpuscular Hemoglobin 29.6 PG Mean Corpuscular Hemoglobin Concent 34.6 % Red Cell Distribution Width 13.7 % Platelet Count 239 TH/MM3 Mean Platelet Volume 9.5 FL Neutrophils (%) (Auto) 62.7 % Lymphocytes (%) (Auto) 25.9 % Monocytes (%) (Auto) 7.2 % Eosinophils (%) (Auto) 3.1 % Basophils (%) (Auto) 1.1 % Neutrophils # (Auto) 4.9 TH/MM3 Lymphocytes # (Auto) 2.0 TH/MM3 Monocytes # (Auto) 0.6 TH/MM3 Eosinophils # (Auto) 0.2 TH/MM3 Basophils # (Auto) 0.1 TH/MM3 CBC Comment DIFF FINAL Differential Comment Prothrombin Time 31.8 SEC Prothromb Time International Ratio 3.2 RATIO Activated Partial Thromboplast Time 43.7 SEC Blood Urea Nitrogen 18 MG/DL Creatinine 1.53 MG/DL Random Glucose 118 MG/DL Calcium Level 8.8 MG/DL Sodium Level 138 MEQ/L Potassium Level 3.8 MEQ/L Chloride Level 105 MEQ/L Carbon Dioxide Level 25.3 MEQ/L Anion Gap 8 MEQ/L Estimat Glomerular Filtration Rate 50 ML/MIN Total Creatine Kinase 351 U/L Creatine Kinase MB 2.4 NG/ML Creatine Kinase MB % 0.7 % Troponin I LESS THAN 0.02 NG/ML Last Impressions Head CT 08/27/172013 Signed Impressions: Service Date/Time: Sunday, August 27, 2017 20:21 - CONCLUSION: No acute intracranial abnormality. Stable mucous retention cyst within right maxillary sinus. Bijan Santiago MD Chest X-Ray 08/27/172013 Signed Impressions: Service Date/Time: Sunday, August 27, 2017 20:41 - CONCLUSION: Left basilar atelectasis and/or infiltrates. Cardiomegaly. Bijan Santiago MD Cervical Spine CT 08/27/172013 Signed Impressions: Service Date/Time: Sunday, August 27, 2017 20:21 - CONCLUSION: No acute disease. Bijan Santiago MD Maxillofacial CT 08/27/17 0000 Signed Impressions: Service Date/Time: Sunday, August 27, 2017 20:21 - CONCLUSION: 1. No acute fracture is noted. 2. Mucous retention cyst within right maxillary sinus. 3. Mild mucosal thickening within the bilateral maxillary sinuses. 4. Mild nasal septal deviation to the left. 5. Right-sided kiesha bullosa. Bijan Santiago MD Elbow X-Ray 08/27/17 Signed Impressions: Service Date/Time: Sunday, August 27, 2017 21:24 - CONCLUSION: No acute disease. Bijan Santiago MD Findings are reviewed. We have contacted [facility] for interrogation. [id number] interrogation is complete and without any events identified. I discussed the patient my attending physician Dr. Ashraf. Patient did have a syncopal workup in September 2016, however we feel it is in his best interest to be admitted observation for further evaluation of the syncopal episode. Diagnosis Primary Impression: Syncope Qualified Codes: R55 - Syncope and collapse Admitting Information Admitting Physician Requests: Observation Condition: Stable Carline Banegas BRENDEN August 27, 2017 20:18
[2017-08-27] MEDS ORDERED: WARF-22 PO (20:20)
[2017-08-27] MEDS ORDERED: TRAZ50TA12 PO (20:20)
[2017-08-27 20:21] VITALS: RESP 20; O2SAT 96
[2017-08-27 20:28] LABS: AUTOMATED NEUTROPHIL # 4.9 TH/MM3 (1.8-7.7); BASOPHIL # 0.1 TH/MM3 (0-0.2); BASOPHIL % 1.1 % (0.0-2.0); EOSINOPHIL # 0.2 TH/MM3 (0-0.4); EOSINOPHIL % 3.1 % (0.0-4.0); HEMATOCRIT 39.6 % (39.0-51.0); HEMOGLOBIN 13.7 GM/DL (13.0-17.0); LYMPH % 25.9 % (9.0-44.0); MEAN CELL VOLUME 85.7 FL (80.0-100.0); MEAN CORPUSCULAR HEMOGLOBIN 29.6 PG (27.0-34.0); MEAN CORPUSCULAR HGB CONC 34.6 % (32.0-36.0); MEAN PLATELET VOLUME 9.5 FL (7.0-11.0); MONO % 7.2 % (0.0-8.0); MONOCYTE # 0.6 TH/MM3 (0-0.9); NEUT % 62.7 % (16.0-70.0); PLATELET COUNT 239 TH/MM3 (150-450); RED BLOOD COUNT 4.62 MIL/MM3 (4.50-5.90); RED CELL DISTRIBUTION WIDTH 13.7 % (11.6-17.2); WHITE BLOOD COUNT 7.9 TH/MM3 (4.0-11.0)
[2017-08-27 20:38] LABS: INTERNATIONAL NORMALIZED RATIO 3.2 RATIO; PROTHROMBIN TIME - PATIENT 31.8 SEC (9.8-11.6)
[2017-08-27 20:43] LABS: BICARBONATE 25.3 MEQ/L (21.0-32.0); BLOOD UREA NITROGEN 18 MG/DL (7-18); CALCIUM 8.8 MG/DL (8.5-10.1); CHLORIDE 105 MEQ/L (98-107); CREATININE 1.53 MG/DL (0.60-1.30); GLOMERULAR FILTRATION RATE 50 ML/MIN (>89); GLUCOSE,RANDOM 118 MG/DL (74-106); SODIUM (NA) 138 MEQ/L (136-145)
[2017-08-27 20:47] LABS: TROPONIN I LESS THAN 0.02 NG/ML (0.02-0.05)
--- NOTE | 2017-08-27 20:49 | RADRPT ---
EXAM DATE/TIME: 08/27/2017 20:21 [facility] COMPARISON: CT BRAIN W/O CONTRAST, October 02, 2016, 22:47. INDICATIONS : Trauma; fall. Patient complains of dizziness. RADIATION DOSE: 56.35 CTDIvol (mGy) MEDICAL HISTORY : Hypertension. Cardiovascular disease SURGICAL HISTORY : Pacemaker. Valve replacement ENCOUNTER: Initial ACUITY: 1 day PAIN SCALE: 5/10 LOCATION: cranial TECHNIQUE: Multiple contiguous axial images were obtained of the head. Using automated exposure control and adj ustment of the mA and/or kV according to patient size, radiation dose was kept as low as reasonably a chievable to obtain optimal diagnostic quality images. DICOM format image data is available electro nically for review and comparison. FINDINGS: CEREBRUM: The ventricles are normal for age. No evidence of midline shift, mass lesion, hemorrhage or acute in farction. No extra-axial fluid collections are seen. POSTERIOR FOSSA: The cerebellum and brainstem are intact. The 4th ventricle is midline. The cerebellopontine angle i s unremarkable. EXTRACRANIAL: The visualized portion of the orbits is intact. Stable mucous retention cyst within the right maxilla ry sinus. SKULL: The calvaria is intact. No evidence of skull fracture. CONCLUSION: No acute intracranial abnormality. Stable mucous retention cyst within right maxillar y sinus. Bijan Santiago MD on August 27, 2017 at 20:45 Board Certified Radiologist. This report was verified electronically.
--- NOTE | 2017-08-27 20:50 | RADRPT ---
EXAM DATE/TIME: 08/27/2017 20:21 [facility] COMPARISON: CT CERVICAL SPINE W/O CONTRAST, October 02, 2016, 22:47. INDICATIONS : Trauma; fall. RADIATION DOSE: 17.14 CTDIvol (mGy) MEDICAL HISTORY : Hypertension. Cardiovascular disease SURGICAL HISTORY : Pacemaker. Valve replacement ENCOUNTER: Initial ACUITY: 1 day PAIN SCALE: 5/10 LOCATION: neck TECHNIQUE: Volumetric scanning of the cervical spine was performed. Multiplanar reconstructions in the sagittal, coronal and oblique axial planes were performed. Using automated exposure control and adjustment o f the mA and/or kV according to patient size, radiation dose was kept as low as reasonably achievable to obtain optimal diagnostic quality images. DICOM format image data is available electronically f or review and comparison. FINDINGS: VERTEBRAE: Normal vertebral body height. ALIGNMENT: No evidence of subluxation. C2-C3: The bony spinal canal is normal in size. No evidence of disc bulge or herniation. The neural forami na are bilaterally patent. C3-C4: The bony spinal canal is normal in size. No evidence of disc bulge or herniation. The neural forami na are bilaterally patent. C4-C5: The bony spinal canal is normal in size. No evidence of disc bulge or herniation. The neural forami na are bilaterally patent. C5-C6: The bony spinal canal is normal in size. No evidence of disc bulge or herniation. The neural forami na are bilaterally patent. C6-C7: The bony spinal canal is normal in size. No evidence of disc bulge or herniation. The neural forami na are bilaterally patent. C7-T1: The bony spinal canal is normal in size. No evidence of disc bulge or herniation. The neural forami na are bilaterally patent. CONCLUSION: No acute disease. Bijan Santiago MD on August 27, 2017 at 20:47 Board Certified Radiologist. This report was verified electronically.
--- NOTE | 2017-08-27 20:53 | RADRPT ---
EXAM DATE/TIME: 08/27/2017 20:21 [facility] COMPARISON: No previous studies available for comparison. INDICATIONS : Trauma; fall. RADIATION DOSE: 21.96 CTDIvol (mGy) MEDICAL HISTORY : Hypertension. Cardiovascular disease SURGICAL HISTORY : Pacemaker. Valve replacement ENCOUNTER: Initial ACUITY: 1 day PAIN SCORE: 4/10 LOCATION: facial TECHNIQUE: Volumetric scanning of the facial bones was performed. Using automated exposure control and adjustme nt of the mA and/or kV according to patient size, radiation dose was kept as low as reasonably achiev able to obtain optimal diagnostic quality images. DICOM format image data is available electronicall y for review and comparison. FINDINGS: ORBITS: The orbital and infraorbital osseous structures are intact. The retroconal structures have a normal configuration. No radiopaque foreign bodies are seen. NASAL BONE: The nasal bone and maxillary spine are intact ZYGOMATIC ARCHES: Symmetric without evidence of fracture. SINUSES: There is a mucous retention cyst within the right maxillary sinus as well as mild mucosal thickening involving the bilateral maxillary sinuses. The ethmoid and frontal sinuses are intact. No air-fluid levels seen. NASAL CAVITY: Mild nasal septal deviation to the left is noted. Right-sided kiesha bullosa is noted. The lacrimal d ucts are intact. SOFT TISSUES: No radiopaque foreign bodies seen. No soft-tissue swelling is seen. INTRACRANIAL: No intracranial air seen. CRIBIFORM PLATE: Grossly intact. CONCLUSION: 1. No acute fracture is noted. 2. Mucous retention cyst within right maxillary sinus. 3. Mild mucosal thickening within the bilateral maxillary sinuses. 4. Mild nasal septal deviation to the left. 5. Right-sided kiesha bullosa. Bijan Santiago MD on August 27, 2017 at 20:49 Board Certified Radiologist. This report was verified electronically.
--- NOTE | 2017-08-27 21:05 | RADRPT ---
EXAM DATE/TIME: 08/27/2017 20:41 [facility] COMPARISON: CHEST SINGLE AP, March 09, 2017, 19:15. INDICATIONS : Palpitations. MEDICAL HISTORY : Hypertension. SURGICAL HISTORY : Pacemaker. CABG. ENCOUNTER: Initial ACUITY: 1 day PAIN SCORE: 0/10 LOCATION: Bilateral chest FINDINGS: Median sternotomy wires are noted status post cardiac surgery. The heart is enlarged. Left subclavian pacemaker is unchanged. Left basilar atelectasis and/or infiltrates are noted. The right lung is georgina ar. CONCLUSION: Left basilar atelectasis and/or infiltrates. Cardiomegaly. Bijan Santiago MD on August 27, 2017 at 21:02 Board Certified Radiologist. This report was verified electronically.
--- NOTE | 2017-08-27 21:42 | RADRPT ---
EXAM DATE/TIME: 08/27/2017 21:24 [facility] COMPARISON: No previous studies available for comparison. INDICATIONS : Right elbow pain from a slip and fall. MEDICAL HISTORY : Hypertension. SURGICAL HISTORY : Pacemaker. CABG. ENCOUNTER: Initial ACUITY: 1 day PAIN SCORE: 9/10 LOCATION: Right elbow FINDINGS: Multiple view examination of the right elbow demonstrates no soft tissue swelling, joint effusion, or fracture. The osseous structures are in normal alignment. Bony mineralization is normal. CONCLUSION: No acute disease. Bijan Santiago MD on August 27, 2017 at 21:40 Board Certified Radiologist. This report was verified electronically.
[2017-08-27 22:28] LABS: BILIRUBIN, URINE NEG (NEG); BLOOD, URINE NEG (NEG); GLUCOSE,URINE NEG (NEG); KETONE, URINE NEG (NEG); MUCUS URINE FEW /lpf (OCC); NITRITE,URINE NEG (NEG); PH, URINE 5.5 (5.0-8.5); URINE COLOR LIGHT-YELLOW (YELLW/STRAW); URINE LEUKOCYTE ESTERASE NEG (NEG)
[2017-08-27] MEDS ORDERED: ACETAMINOPHEN/HYDROcodone 325 MG/5 MG TAB PO ONE (23:00)
[2017-08-27] MEDS ORDERED: BISACODYL 10 MG SUPP RECTAL PRN (23:15)
[2017-08-27] MEDS ORDERED: ACETAMINOPHEN/HYDROcodone 325 MG/5 MG TAB PO PRN (23:15)
[2017-08-27] MEDS ORDERED: traZODone HCL 50 MG TAB PO SCH (23:15)
[2017-08-27] MEDS ORDERED: ACETAMINOPHEN/HYDROcodone 325 MG/10 MG TAB PO PRN (23:15)
[2017-08-27] MEDS ORDERED: ACETAMINOPHEN 325 MG TAB PO PRN (23:15)
[2017-08-27] MEDS ORDERED: SENNOSIDES 8.6 MG TAB PO PRN (23:15)
[2017-08-27] MEDS ORDERED: MAGNESIUM HYDROXIDE SUSP 30 ML CUP PO PRN (23:15)
[2017-08-27] MEDS ORDERED: ONDANSETRON HCL 4 MG/2 ML VIAL IVP PRN (23:15)
[2017-08-27] MEDS ORDERED: SODIUM CHLORIDE 0.9% FLUSH 10 ML FLUSH IV FLUSH PRN (23:15)
[2017-08-27] MEDS ORDERED: LACTULOSE SYRUP 20 GM/30 ML CUP PO PRN (23:15)
--- NOTE | 2017-08-27 23:45 | HHI.HP ---
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 Pt states he was in the shower washing his hair, closed his eyes and tilted his head back when he had sudden onset of dizziness/ lightheadedness. Pt states he then woke up on the floor, reports right-sided facial pain. No previous h/o syncope. Reports he had AVR approx 10mo ago and has had "gait imbalance" since that time in addition to SOB w/ exertion, following w/ Dr. Suggs at [facility], states he's had extensive work up w/ recent Echo and "everything is normal". Of note, pt stopped going to cardiac rehab because "it makes me feel worse". Denies c/o chest pain or SOB at this time. Pacemaker interrogate while in ER, no events noted. BP 130/92, HR 79, O2 sat 96% on RA, Afebrile. CBC unremarkable. Creatinine 1.53, previously 1.50 on 07/11/2017. CPK 351. Troponin negative. INR 3.2. UA negative for UTI. CXR with left basilar atelectasis or infiltrate. CT Head with no acute intracranial abnormality. CT Maxillofacial with no acute fracture noted, mild mucosal thickening bilateral maxillary sinus. CT C-spine no acute findings. Elbow X-ray negative. Review of Systems Except as stated in HPI: all other systems reviewed are Neg ROS: 14 point review of systems otherwise negative. Past Family Social History Past Medical History PMH: Anxiety, Depression, Congenital Heart Defect s/p AVR and Pacemaker on Coumadin Past Surgical History PAST SURGICAL HISTORY: Pacemaker, AVR, Carpal Tunnel Right Wrist Allergies: Coded Allergies: ketorolac (Verified Allergy, Severe, Hallucinations, 08/27/17) latex (Verified Allergy, Intermediate, 08/27/17) Family History PAST FAMILY HISTORY: Reviewed. No h/o DM or CAD Social History PAST SOCIAL HISTORY: Negative for alcohol, tobacco or drugs. Physical Exam Vital Signs Vital Signs Date Time Temp Pulse Resp B/P (MAP) Pulse Ox O2 Delivery O2 Flow Rate FiO2 08/27/17 20:21 20 96 Room Air 08/27/17 20:05 98.1 79 16 130/92 (105) 96 Physical Exam PE: GENERAL: Middle-aged white male in no acute distress. at bedside. HEENT: PERRLA, EOMI. No scleral icterus or conjunctival pallor. No lid lag or facial droop. CARDIOVASCULAR: Regular rate and rhythm. No obvious murmurs to auscultation. No chest tenderness to palpation. Left chest surgical incision no signs of infection. RESPIRATORY: No obvious rhonchi or wheezing. Clear to auscultation. Breath sounds equal bilaterally. GASTROINTESTINAL: Abdomen soft, non-tender, nondistended. BS normal. MUSCULOSKELETAL: Extremities without clubbing, cyanosis, or edema. No obvious deformities. NEUROLOGICAL: Awake, alert and oriented x4. No focal neurologic deficits. Moving both upper and lower extremities spontaneously. Laboratory Laboratory Tests Test 08/27/17 20:20 08/27/17 22:05 White Blood Count 7.9 Red Blood Count 4.62 Hemoglobin 13.7 Hematocrit 39.6 Mean Corpuscular Volume 85.7 Mean Corpuscular Hemoglobin 29.6 Mean Corpuscular Hemoglobin Concent 34.6 Red Cell Distribution Width 13.7 Platelet Count 239 Mean Platelet Volume 9.5 Neutrophils (%) (Auto) 62.7 Lymphocytes (%) (Auto) 25.9 Monocytes (%) (Auto) 7.2 Eosinophils (%) (Auto) 3.1 Basophils (%) (Auto) 1.1 Neutrophils # (Auto) 4.9 Lymphocytes # (Auto) 2.0 Monocytes # (Auto) 0.6 Eosinophils # (Auto) 0.2 Basophils # (Auto) 0.1 CBC Comment DIFF FINAL Differential Comment Prothrombin Time 31.8 Prothromb Time International Ratio 3.2 Activated Partial Thromboplast Time 43.7 Blood Urea Nitrogen 18 Creatinine 1.53 Random Glucose 118 Calcium Level 8.8 Sodium Level 138 Potassium Level 3.8 Chloride Level 105 Carbon Dioxide Level 25.3 Anion Gap 8 Estimat Glomerular Filtration Rate 50 Total Creatine Kinase 351 Creatine Kinase MB 2.4 Creatine Kinase MB % 0.7 Troponin I LESS THAN 0.02 Urine Color LIGHT-YELLOW Urine Turbidity CLEAR Urine pH 5.5 Urine Specific Enders 1.007 Urine Protein NEG Urine Glucose (UA) NEG Urine Ketones NEG Urine Occult Blood NEG Urine Nitrite NEG Urine Bilirubin NEG Urine Urobilinogen LESS THAN 2.0 Urine Leukocyte Esterase NEG Urine WBC LESS THAN 1 Urine Mucus FEW Microscopic Urinalysis Comment CULT NOT INDICATED Result Diagram: 08/27/17201908/27/172019 Caprini VTE Risk Assessment Caprini VTE Risk Assessment: Mod/High Risk (score >= 2) Caprini Risk Assessment Model Point Value = 1 Point Value = 2 Point Value = 3 Point Value = 5 Age 41-60 Minor surgery BMI > 25 kg/m2 Swollen legs Varicose veins or History of unexplained or recurrent spontaneous Oral contraceptives or hormone replacement Sepsis (< 1 month) Serious lung disease, including pneumonia (< 1 month) Abnormal pulmonary function Acute myocardial infarction Congestive heart failure (< 1 month) History of inflammatory bowel disease Medical patient at bed rest Age 61-74 Arthroscopic surgery Major open surgery (> 45 min) Laparoscopic surgery (> 45 min) Malignancy Confined to bed (> 72 hours) Immobilizing plaster cast Central venous access Age >= 75 History of VTE Family history of VTE Factor V Leiden Prothrombin [id number] Lupus anticoagulant Anticardiolipin antibodies Elevated serum homocysteine Heparin-induced thrombocytopenia Other congenital or acquired thrombophilia Stroke (< 1 month) Elective arthroplasty Hip, pelvis, or leg fracture Acute spinal cord injury (< 1 month) Prophylaxis Regimen Total Risk Factor Score Risk Level Prophylaxis Regimen 0-1 Low Early ambulation 2 Moderate Order ONE of the following: *Sequential Compression Device (SCD) *Heparin 5000 units SQ BID 3-4 Higher Order ONE of the following medications: *Heparin 5000 units SQ TID *Enoxaparin/Lovenox 40 mg SQ daily (WT < 150 kg, CrCl > 30 mL/min) *Enoxaparin/Lovenox 30 mg SQ daily (WT < 150 kg, CrCl > 10-29 mL/min) *Enoxaparin/Lovenox 30 mg SQ BID (WT < 150 kg, CrCl > 30 mL/min) AND/OR *Sequential Compression Device (SCD) 5 or more Highest Order ONE of the following medications: *Heparin 5000 units SQ TID (Preferred with Epidurals) *Enoxaparin/Lovenox 40 mg SQ daily (WT < 150 kg, CrCl > 30 mL/min) *Enoxaparin/Lovenox 30 mg SQ daily (WT < 150 kg, CrCl > 10-29 mL/min) *Enoxaparin/Lovenox 30 mg SQ BID (WT < 150 kg, CrCl > 30 mL/min) AND *Sequential Compression Device (SCD) Assessment and Plan Problem List: (1) Syncope ICD Code: R55 - Syncope Status: Acute (2) Renal insufficiency ICD Code: N28.9 - Disorder of kidney and ureter, unspecified (3) S/P AVR (aortic valve replacement) ICD Code: Z95.2 - Presence of prosthetic heart valve Assessment and Plan A/P: 1. Syncope: acute episode of dizziness while in shower followed by syncopal event, no h/o similar symptoms. CT Head/C-Spine/Maxillofacial w/ no acute findings, images reviewed by me. h/o Pacemaker, s/p interrogation in ER, no events noted. Follows w/ Dr. Suggs at [facility] for h/o congenital heart defect s/p AVR, recent Echo 1mo ago "normal" per patient. Admit for Observation , telemetry, check serial enzymes, obtain records from [facility] for Echo. 2. Renal Insufficiency: Creatinine 1.53, previously 1.50 on 07/11/17, 1.30 on , U/a negative for UTI, IVF for hydration, repeat labs in am. 3. AVR: s/p AVR for congenital heart defect 10mo ago, on Coumadin, INR therapeutic at 3.2, goal 2.5-3.5, will recheck INR in am, resume home Coumadin if remains therapeutic. 4. DVT Prophylaxis: Coumadin 5. Social work for DC planning as needed. 6. Case discussed at length with the ER physician, lab/record/imaging reviewed by me. Problem Qualifiers (1) Syncope: Qualified Codes: R55 - Syncope and collapse Lorin Blake MD August 27, 2017 23:45
[2017-08-28] VITALS (8 sets, daily range): BP systolic 132–146; BP diastolic 83–94; PULSE 69–79; RESP 16–20; TEMP 97.7–98.1; O2SAT 95–97
[2017-08-28] MEDS: SODIUM CHLOR 0.9% 1000 ML INJ 1,000 ML IV SCH ×2 (01:36→09:30)
[2017-08-28 08:19] LABS: AUTOMATED NEUTROPHIL # 2.9 TH/MM3 (1.8-7.7); BASOPHIL # 0.1 TH/MM3 (0-0.2); EOSINOPHIL # 0.2 TH/MM3 (0-0.4); EOSINOPHIL % 4.3 % (0.0-4.0); HEMATOCRIT 37.9 % (39.0-51.0); HEMOGLOBIN 13.3 GM/DL (13.0-17.0); LYMPH % 35.3 % (9.0-44.0); MEAN CELL VOLUME 85.1 FL (80.0-100.0); MEAN CORPUSCULAR HEMOGLOBIN 29.9 PG (27.0-34.0); MEAN CORPUSCULAR HGB CONC 35.2 % (32.0-36.0); MEAN PLATELET VOLUME 9.4 FL (7.0-11.0); MONO % 7.4 % (0.0-8.0); MONOCYTE # 0.4 TH/MM3 (0-0.9); PLATELET COUNT 222 TH/MM3 (150-450); RED BLOOD COUNT 4.46 MIL/MM3 (4.50-5.90); RED CELL DISTRIBUTION WIDTH 13.9 % (11.6-17.2); WHITE BLOOD COUNT 5.5 TH/MM3 (4.0-11.0)
--- NOTE | 2017-08-28 08:26 | HHI.PR ---
Subjective Remarks Follow up for syncope. The patient reports just feeling weak and tired today. He states he doesn't sleep much at baseline, maybe only 2 hours a night, and didn't sleep at all last night. He reports some right sided facial pain since his syncope with fall. He denies any lightheadedness or dizziness currently. Denies any chest pain, palpitations, or shortness of breath. Denies any leg swelling. Denies any other medical complaints at this time. He states he definitely had an echocardiogram a few weeks ago which he was told was unremarkable. He would like to avoid repeating the echo if possible. Objective Vitals Vital Signs Date Time Temp Pulse Resp B/P (MAP) Pulse Ox O2 Delivery O2 Flow Rate FiO2 08/28/17 04:24 98.1 73 16 132/85 (101) 97 08/28/17 01:43 98.0 70 16 139/94 (109) 97 08/27/17 20:21 20 96 Room Air 08/27/17 20:05 98.1 79 16 130/92 (105) 96 I/O 08/27/17 08/27/17 08/27/17 08/28/17 08/28/17 08/28/17 07:00 15:00 23:00 07:00 15:00 23:00 Intake Total 1000 ml Output Total 450 ml Balance 550 ml Intake IV Total 1000 ml Output Urine Total 450 ml Result Diagram: 08/28/17 0735 08/27/172019 Imaging Last Impressions Head CT 08/27/172013 Signed Impressions: Service Date/Time: Sunday, August 27, 2017 20:21 - CONCLUSION: No acute intracranial abnormality. Stable mucous retention cyst within right maxillary sinus. Bijan Santiago MD Chest X-Ray 08/27/172013 Signed Impressions: Service Date/Time: Sunday, August 27, 2017 20:41 - CONCLUSION: Left basilar atelectasis and/or infiltrates. Cardiomegaly. Bijan Santiago MD Cervical Spine CT 08/27/172013 Signed Impressions: Service Date/Time: Sunday, August 27, 2017 20:21 - CONCLUSION: No acute disease. Bijan Santiago MD Maxillofacial CT 08/27/17 Signed Impressions: Service Date/Time: Sunday, August 27, 2017 20:21 - CONCLUSION: 1. No acute fracture is noted. 2. Mucous retention cyst within right maxillary sinus. 3. Mild mucosal thickening within the bilateral maxillary sinuses. 4. Mild nasal septal deviation to the left. 5. Right-sided kiesha bullosa. Bijan Santiago MD Elbow X-Ray 08/27/17 0000 Signed Impressions: Service Date/Time: Sunday, August 27, 2017 21:24 - CONCLUSION: No acute disease. Bijan Santiago MD Objective Remarks GENERAL: Well-nourished, well-developed pleasant middle aged male patient in NAD. SKIN: Warm and dry. No rash. HEENT: Normocephalic. Atraumatic.Pupils equal and round. Mucous membranes pink and moist. NECK: Supple. Trachea midline. CARDIOVASCULAR: Regular rate and rhythm. Mechanical murmur noted. Midline sternotomy scar well healed and pacer site at left upper chest well healed. RESPIRATORY: No accessory muscle use. Clear to auscultation. Breath sounds equal bilaterally. GASTROINTESTINAL: Abdomen soft, non-tender, nondistended. Normoactive bowel sounds x4. MUSCULOSKELETAL: No obvious deformities. Extremities without clubbing, cyanosis , or edema. NEUROLOGICAL: Awake and alert. No obvious cranial nerve deficits. Motor grossly within normal limits. Normal speech. PSYCHIATRIC: Appropriate mood and affect; insight and judgment normal. Medications and IVs Current Medications Medications (Trade) Dose Ordered Sig/Vinnie Route Start Time Stop Time Status Last Admin Sodium Chloride 1,000 ml @ 100 mls/hr Q10H IV 08/27/17 23:00 08/28/17 01:36 (NS Flush) 2 ml UNSCH PRN IV FLUSH 08/27/17 23:15 (NS Flush) 2 ml BID IV FLUSH 08/28/17 09:00 (Zofran Inj) 4 mg Q6H PRN IVP 08/27/17 23:15 (Tylenol) 650 mg Q6H PRN PO 08/27/17 23:15 ([place] 5-325 Mg) 1 tab Q4H PRN PO 08/27/17 23:15 ([place] 10-325 Mg) 1 tab Q4H PRN PO 08/27/17 23:15 (Yazmin-Colace) 1 tab BID PO 08/28/17 09:00 (Milk Of Magnesia Liq) 30 ml Q12H PRN PO 08/27/17 23:15 (Senokot) 17.2 mg Q12H PRN PO 08/27/17 23:15 (Dulcolax Supp) 10 mg DAILY PRN RECTAL 08/27/17 23:15 (Lactulose Liq) 30 ml DAILY PRN PO 08/27/17 23:15 (Aspirin Chew) 81 mg DAILY CHEW 08/28/17 09:00 (Lopressor) 25 mg BID PO 08/28/17 09:00 (Desyrel) 50 mg HS PO 08/27/17 23:15 08/27/17 23:53 A/P Problem List: (1) Syncope ICD Code: R55 - Syncope Status: Acute (2) Renal insufficiency ICD Code: N28.9 - Disorder of kidney and ureter, unspecified (3) S/P AVR (aortic valve replacement) ICD Code: Z95.2 - Presence of prosthetic heart valve Assessment and Plan 42-year-old male with a PMH of Anxiety, Depression, Congenital Heart Defect s/p AVR and Pacemaker on Coumadin who was brought to the ER after syncopal event. Syncope: acute episode of dizziness while in shower followed by syncopal event , no h/o similar symptoms. -CT Head/C-Spine/Maxillofacial w/ no acute findings, images reviewed by me. -Pacemaker s/p interrogation in ER, no events noted. -Follows w/ Dr. Sharma at [facility] for h/o congenital heart defect s/p AVR, recent Echo 1mo ago "normal" per patient. -Attempting to contact Dr. Sharma -Monitor on telemetry -Rule out ACS with serial cardiac enzymes and EKG, initial set negative -obtain records from [facility] for Echo. RENZO: Creatinine 1.53, patient denies any prior history of kidney disease. Suspect secondary to dehydration. Possibly contributing to above. -U/a negative for UTI -Give IVF for hydration -Avoid nephrotoxins -repeat labs show improvement with Cr 1.23 today AVR: s/p AVR for congenital heart defect 10mo ago, on Coumadin. -INR therapeutic at 3.2, goal 2.5-3.5 -resume home Coumadin DVT Prophylaxis: on Coumadin Discharge Planning Awaiting ACS rule out. Need records of echocardiogram from . Placed call to patient's custodial supervisor Dr. Sharma, awaiting to hear back. 1400hrs: ACS ruled out with negative serial cardiac enzymes x3. Received patient 's echocardiogram results from 06/26/17, showed EF 45-50%, mild MR, and normal functioning aortic valve. Dr. Newton and myself had long discussion with patient' s custodial supervisor Dr. Sharma, reviewed pacer interrogation, doubt syncope cardiac related, more likely vasovagal or dehydration. Dr. Sharma recommended outpatient f/up with him in 2 weeks. Discussed plan with the patient, verbalized understanding, agrees to discharge. Discharge patient to home Condition on discharge: Stable Heart Healthy Diet as tolerated Ad Zahira activity Rx written: no new meds Follow-up with primary care physician Dr. Kimbrough and custodial supervisor Dr. Sharma Problem Qualifiers (1) Syncope: Qualified Codes: R55 - Syncope and collapse Nuzhat Norman PA-C August 28, 2017 08:26
[2017-08-28 08:27] LABS: INTERNATIONAL NORMALIZED RATIO 2.8 RATIO; PROTHROMBIN TIME - PATIENT 28.4 SEC (9.8-11.6)
[2017-08-28 08:43] LABS: ALBUMIN 3.2 GM/DL (3.4-5.0); AST (GOT) 29 U/L (15-37); BICARBONATE 26.9 MEQ/L (21.0-32.0); BLOOD UREA NITROGEN 14 MG/DL (7-18); CALCIUM 8.9 MG/DL (8.5-10.1); CHLORIDE 108 MEQ/L (98-107); CREATININE 1.23 MG/DL (0.60-1.30); GLOMERULAR FILTRATION RATE 64 ML/MIN (>89); GLUCOSE,RANDOM 89 MG/DL (74-106); SODIUM (NA) 141 MEQ/L (136-145)
[2017-08-28 08:48] LABS: ALKALINE PHOSPHATASE 65 U/L (45-117); ALT (GPT) 42 U/L (12-78); TOTAL BILIRUBIN ADULT 0.5 MG/DL (0.2-1.0); TOTAL PROTEIN 6.3 GM/DL (6.4-8.2); TROPONIN I LESS THAN 0.02 NG/ML (0.02-0.05)
[2017-08-28] MEDS ORDERED: WARFARIN SOD 10 MG TAB PO SCH (09:00)
[2017-08-28] MEDS ORDERED: ASPIRIN 81 MG CHEW TAB CHEW SCH (09:00)
[2017-08-28] MEDS ORDERED: METOPROLOL TARTRATE 25 MG TAB PO SCH (09:00)
[2017-08-28] MEDS ORDERED: DOCUSATE SODIUM 50 MG/SENNA 8.6 MG TAB PO SCH (09:00)
[2017-08-28] MEDS ORDERED: SODIUM CHLORIDE 0.9% FLUSH 10 ML FLUSH IV FLUSH SCH (09:00)
--- NOTE | 2017-08-28 10:49 | EKG ---
Date Performed: 08/27/2017 Time Performed: 20:08:40 PTAGE: 42 years EKG: ELECTRONIC VENTRICULAR PACEMAKER ABNORMAL RHYTHM ECG Since the PREVIOUS TRACING , no significant change noted PREVIOUS TRACIN07/11/2017 20.57 DOCTOR: Elpidio Crane Interpretating Date/Time 08/28/2017 10:47:22
[2017-08-28 13:54] LABS: TROPONIN I LESS THAN 0.02 NG/ML (0.02-0.05)
--- NOTE | 2017-08-28 14:28 | HHI.DCPOC ---
Discharge Care Plan Diagnosis: (1) Dehydration (2) Syncope (3) Renal insufficiency (4) S/P AVR (aortic valve replacement) Goals to Promote Your Health * To prevent worsening of your condition and complications * To maintain your health at the optimal level Directions to Meet Your Goals Take your medications as prescribed Follow your dietary instruction Follow activity as directed Keep your appointments as scheduled Take your immunizations and boosters as scheduled If your symptoms worsen call your PCP, if no PCP go to Urgent Care Center or Emergency Room Smoking is Dangerous to Your Health. Avoid second hand smoke Call the 24-hour hour crisis hotline for domestic abuse at Nuzhat Norman PA-C August 28, 2017 14:28
[2017-08-28] MEDS ORDERED: WARFARIN SOD 7.5 MG TAB PO SCH (16:00)
[2017-08-28] MEDS ORDERED: WARFARIN SOD 4 MG TAB PO SCH (16:00)
[2017-08-28 16:07] LABS: HEMOGLOBIN A1C 5.1 % (4.3-6.0)
[2017-08-29] MEDS ORDERED: WARFARIN SOD 7.5 MG TAB PO SCH (16:00)
== END 2017-08-28 18:35 | disposition home or self-care (01) ==
LOC: NEPE 19:59 → NEDA 22:47 → NEPHCDU 08-28 00:43
PROVIDERS: ADMIT Hospitalist; ATTEND Hospitalist
DX: E86.0 Dehydration (principal); R55 Syncope and collapse; N17.9 Acute kidney failure, unspecified; I10 Essential (primary) hypertension; J98.11 Atelectasis; Z95.2 Presence of prosthetic heart valve
CPT/HCPCS: 70450; 70486; 71045; 72125; 73080; 80048; 80053; 80307; 81001; 82550; 82552; 83036; 84484; 85025; 85610; 85730; 93005; 96360; 96361; 99285; G0378; J7030

== ENCOUNTER 2017-10-14 14:58 | Observation (INO) | payer MEDICARE, MEDICAID ==
[~2017-10-14] VITALS: Ht 177.8 cm; Wt 100.0 kg
[2017-10-14] VITALS (9 sets, daily range): BP systolic 124–135; BP diastolic 78–88; PULSE 79–95; RESP 16–20; TEMP 97.3–98.4; O2SAT 97–98
[~2017-10-14 14:58] MED LIST changes: -AMIT50TA3 PO; -AMOX500C PO; -NEOM1SOL7 RIGHT EAR; -PERC5TAB12 PO; +TRAZ50TA12 PO; -WARF-21 PO; +WARF-22 PO; -ZOLP10TA3 PO
--- NOTE | 2017-10-14 15:38 | PD ---
HPI Chief Complaint: Chest Pain Time Seen by Provider: 15:20 Travel History International Travel<30 days: No Contact w/Intl Traveler<30days: No Traveled to known affect area: No History of Present Illness HPI 42yo M with PMH of anxiety, depression, congenital heart defect s/p AVR and pacemaker placement on coumadin here with c/o left sided chest pain that started at noon today about 3 hours ago. Said it is a pulling sensation. Associated with sob, diaphoresis, nausea and vomiting. Denies any abdominal pain, focal weakness or numbness. Pt was admitted here in 08/2017 for syncope. Said he was dehydrated and creatinine was a little elevated. 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 Hurd. [facility] Past Medical History Hx Anticoagulant Therapy: Yes Asthma: No Blood Disorders: No Anxiety: Yes Depression: Yes Heart Rhythm Problems: No Cancer: No Cardiac Catheterization: Yes Cardiovascular Problems: Yes (mechanical valve, pacemaker, VT x 3) High Cholesterol: No Chemotherapy: No Chest Pain: Yes Congestive Heart Failure: No COPD: No Diabetes: No Diminished Hearing: No Endocrine: No Gastrointestinal Disorders: No Genitourinary: No Hypertension: Yes Immune Disorder: No Implanted Vascular Access Dvce: Yes Musculoskeletal: No Neurologic: Yes (CHRONIC MIGRAINES) Psychiatric: Yes (depression , PTSD , anxiety ) Reproductive: No Respiratory: No Immunizations Current: Yes Radiation Therapy: No Sleep Apnea: No (possible ) Thyroid Disease: No Past Surgical History Body Medical Devices: PACEMAKER, LOOP MONITOR Cardiac Surgery: Yes (PACER, VALVE REPLACEMENT) Pacemaker: Yes Other Surgery: Yes (CARPAL TUNNEL RIGHT WRIST, LIPOMA REMOVED) Social History Alcohol Use: No Tobacco Use: No Substance Use: Yes (alcohol opiates when younger stopped 2002) Allergies-Medications (Allergen,Severity, Reaction): Coded Allergies: ketorolac (Verified Allergy, Severe, Hallucinations, 10/14/17) latex (Verified Allergy, Intermediate, 10/14/17) Reported Meds & Prescriptions Reported Meds & Active Scripts Active Reported Amitriptyline (Amitriptyline HCl) 50 Mg Tab 50 Mg PO HS Trazodone (Trazodone HCl) 100 Mg Tablet 100 Mg PO HS Warfarin 10 Mg Tab 11.5 Mg PO MON, Coumadin (Warfarin) 7.5 Mg Tab 7.5 Mg PO Metoprolol Tartrate 25 Mg Tab 25 Mg PO BID Aspirin Children's (Aspirin) 81 Mg Chew 81 Mg CHEW DAILY Review of Systems Except as stated in HPI: all other systems reviewed are Neg Physical Exam Narrative GENERAL: 42yo M in mild distress. SKIN: Focused skin assessment warm/dry. HEAD: Atraumatic. Normocephalic. EYES: Pupils equal and round. No scleral icterus. No injection or drainage. ENT: No nasal bleeding or discharge. Mucous membranes pink and moist. NECK: Trachea midline. No JVD. CARDIOVASCULAR: Regular rate and rhythm. +Click. RESPIRATORY: No accessory muscle use. Clear to auscultation. Breath sounds equal bilaterally. GASTROINTESTINAL: Abdomen soft, non-tender, nondistended. MUSCULOSKELETAL: No obvious deformities. No clubbing. No cyanosis. Trace lower extremity edema. NEUROLOGICAL: Awake and alert. No obvious cranial nerve deficits. Motor grossly within normal limits. Normal speech. PSYCHIATRIC: Anxious appearing. Data Data Last Documented VS Vital Signs Date Time Temp Pulse Resp B/P (MAP) Pulse Ox O2 Delivery O2 Flow Rate FiO2 10/14/17 18:00 79 20 126/78 (94) 97 Room Air 10/14/17 14:59 97.5 Orders Orders Electrocardiogram (10/14/17 ) Basic Metabolic Panel (Bmp) (10/14/17 15:28) Complete Blood Count With Diff (10/14/17 15:28) Magnesium (Mg) (10/14/17 15:28) Prothrombin Time / Inr (Pt) (10/14/17 15:28) Act Partial Throm Time (Ptt) (10/14/17 15:28) Troponin I (10/14/17 15:28) Chest, Single Ap (10/14/17 15:28) Ondansetron Odt (Zofran Odt) (10/14/17 15:45) Nitroglycerin Sl (Nitrostat Sl) (10/14/17 15:45) Sodium Chlor 0.9% 1000 Ml Inj (Ns 1000 M (10/14/17 15:45) Lorazepam Inj (Ativan Inj) (10/14/17 16:00) Abdomen, Kub Only (10/14/17 ) Admit Order (Ed Use Only) (10/14/17 18:26) Activity Bed Rest With Brp (10/14/17 18:26) Vital Signs (Adult) Q4H (10/14/17 18:26) Cardiac Rhythm .As Directed (10/14/17) Notify Dr: Other .PRN (10/14/17) Notify Parameters (10/14/17:) Resp Oxygen Nasal Cannula (10/14/17 ) Ckmb (Isoenzyme) Profile (10/14/17 18:26) Ckmb (Isoenzyme) Profile (10/14/17:) Troponin I (10/14/17:) Troponin I (10/14/17:) Electrocardiogram (10/14/17) Electrocardiogram (10/14/17:) ^ Obtain (10/14/17:) Sodium Chloride 0.9% Flush (Ns Flush) (10/14/17 18:30) Sodium Chloride 0.9% Flush (Ns Flush) (10/14/17 21:00) Drying Oven Tender / Telemetry SURINDER.Q8H (10/14/17 18:) CKMB (10/14/17 18:50) CKMB% (10/14/17 18:50) CKMB (10/14/17 21:40) CKMB% (10/14/17 21:40) Labs Laboratory Tests Test 10/14/17 15:40 White Blood Count 7.6 TH/MM3 Red Blood Count 4.88 MIL/MM3 Hemoglobin 14.5 GM/DL Hematocrit 42.3 % Mean Corpuscular Volume 86.7 FL Mean Corpuscular Hemoglobin 29.6 PG Mean Corpuscular Hemoglobin Concent 34.2 % Red Cell Distribution Width 13.3 % Platelet Count 251 TH/MM3 Mean Platelet Volume 9.4 FL Neutrophils (%) (Auto) 62.2 % Lymphocytes (%) (Auto) 27.4 % Monocytes (%) (Auto) 6.9 % Eosinophils (%) (Auto) 2.9 % Basophils (%) (Auto) 0.6 % Neutrophils # (Auto) 4.7 TH/MM3 Lymphocytes # (Auto) 2.1 TH/MM3 Monocytes # (Auto) 0.5 TH/MM3 Eosinophils # (Auto) 0.2 TH/MM3 Basophils # (Auto) 0.0 TH/MM3 CBC Comment DIFF FINAL Differential Comment Prothrombin Time 27.6 SEC Prothromb Time International Ratio 2.7 RATIO Activated Partial Thromboplast Time 38.1 SEC Blood Urea Nitrogen 12 MG/DL Creatinine 1.41 MG/DL Random Glucose 96 MG/DL Calcium Level 8.9 MG/DL Magnesium Level 2.1 MG/DL Sodium Level 140 MEQ/L Potassium Level 4.1 MEQ/L Chloride Level 107 MEQ/L Carbon Dioxide Level 24.7 MEQ/L Anion Gap 8 MEQ/L Estimat Glomerular Filtration Rate 55 ML/MIN Troponin I LESS THAN 0.02 NG/ML MDM Medical Decision Making Medical Screen Exam Complete: Yes Emergency Medical Condition: Yes Interpretation(s) EKG: Ventricular paced rhythm. No concordance. Differential Diagnosis Anxiety vs. ACS vs. musculoskeletal pain Narrative Course 42yo M with atypical chest pain. Labs reviewed, no leukocytosis. H/H normal. Creatinine is 1.41, which is lower than 1.53 on 08/27/17. Troponin negative. INR therapeutic at 2.7. CXR negative. Pt has no abdominal pain but is insistent on imaging of abdomen because he has constipation. Xray abdomen is negative. Will admit pt to chest pain center for serial EKG and cardiac enzymes. Diagnosis Primary Impression: OTHER CHEST PAIN Admitting Information Admitting Physician Requests: Palmira Sanderson DO Oct 14, 2017 15:38
[2017-10-14] MEDS ORDERED: TRAZ100T10 PO (15:39)
[2017-10-14] MEDS ORDERED: AMIT50TA3 PO (15:39)
[2017-10-14] MEDS ORDERED: SODIUM CHLOR 0.9% 1000 ML INJ 1,000 ML IV ONE (15:45)
[2017-10-14] MEDS ORDERED: ONDANSETRON ODT 4 MG TAB PO ONE (15:45)
[2017-10-14] MEDS: NITROGLYCERIN 0.4 MG SL 25 TABS/BTL SL SCH ×3 (15:57→16:45)
--- NOTE | 2017-10-14 15:57 | RADRPT ---
EXAM DATE: 10/14/2017 3:49 PM EDT AGE/SEX: 42 years / Male INDICATIONS: Chest pain. CLINICAL DATA: This is the patient's initial encounter. Patient reports that signs and symptoms have been present for 1 day and indicates a pain score of 9/10. MEDICAL/SURGICAL HISTORY: Hypertension. Anxiety. Depression. Pacemaker. CABG. Right carpal tu nnel. [place] [facility] [place]. . FINDINGS: Pacer leads overlie right atrium and right ventricle. Previous sternotomy. No focal consolidation or effusion. Heart size mildly enlarged. No pneumothorax. CONCLUSION: No acute findings. Postop sternotomy. Pacer leads overlie right atrium and right ventricle. Electronically signed by: Lb Gonzales MD 10/14/2017 3:55 PM EDT
[2017-10-14] MEDS ORDERED: LORazepam 2 MG/ML VIAL IV PUSH ONE (16:00)
[2017-10-14 16:10] LABS: AUTOMATED NEUTROPHIL # 4.7 TH/MM3 (1.8-7.7); BASOPHIL % 0.6 % (0.0-2.0); EOSINOPHIL # 0.2 TH/MM3 (0-0.4); EOSINOPHIL % 2.9 % (0.0-4.0); HEMATOCRIT 42.3 % (39.0-51.0); HEMOGLOBIN 14.5 GM/DL (13.0-17.0); LYMPH % 27.4 % (9.0-44.0); LYMPHOCYTE # 2.1 TH/MM3 (1.0-4.8); MEAN CELL VOLUME 86.7 FL (80.0-100.0); MEAN CORPUSCULAR HEMOGLOBIN 29.6 PG (27.0-34.0); MEAN CORPUSCULAR HGB CONC 34.2 % (32.0-36.0); MEAN PLATELET VOLUME 9.4 FL (7.0-11.0); MONO % 6.9 % (0.0-8.0); MONOCYTE # 0.5 TH/MM3 (0-0.9); NEUT % 62.2 % (16.0-70.0); PLATELET COUNT 251 TH/MM3 (150-450); RED BLOOD COUNT 4.88 MIL/MM3 (4.50-5.90); RED CELL DISTRIBUTION WIDTH 13.3 % (11.6-17.2); WHITE BLOOD COUNT 7.6 TH/MM3 (4.0-11.0)
[2017-10-14 16:22] LABS: INTERNATIONAL NORMALIZED RATIO 2.7 RATIO; PROTHROMBIN TIME - PATIENT 27.6 SEC (9.8-11.6)
[2017-10-14 16:27] LABS: BICARBONATE 24.7 MEQ/L (21.0-32.0); BLOOD UREA NITROGEN 12 MG/DL (7-18); CALCIUM 8.9 MG/DL (8.5-10.1); CHLORIDE 107 MEQ/L (98-107); CREATININE 1.41 MG/DL (0.60-1.30); GLOMERULAR FILTRATION RATE 55 ML/MIN (>89); GLUCOSE,RANDOM 96 MG/DL (74-106); MAGNESIUM 2.1 MG/DL (1.5-2.5); SODIUM (NA) 140 MEQ/L (136-145)
[2017-10-14 16:31] LABS: TROPONIN I LESS THAN 0.02 NG/ML (0.02-0.05)
--- NOTE | 2017-10-14 18:14 | RADRPT ---
EXAM DATE: 10/14/2017 5:41 PM EDT AGE/SEX: 42 years / Male INDICATIONS: Abdominal pain and constipation chronically for one year since open heart surgery. CLINICAL DATA: This is the patient's initial encounter. Patient reports that signs and symptoms have been present for 3 days and indicates a pain score of 6/10. MEDICAL/SURGICAL HISTORY: . Abdominal lipomas. Myocardial infarction. . Open heart, valve rep lacement. Pacemaker. Lipoma removal, abdomen. COMPARISON: No prior exams available for comparison. FINDINGS: The abdominal bowel gas pattern is normal. No abnormal masses, calcifications, or organomegaly is s een. The osseous structures are unremarkable. Previous sternotomy. CONCLUSION: Negative examination. Electronically signed by: Lb Gonzales MD 10/14/2017 6:13 PM EDT
[2017-10-14] MEDS ORDERED: SODIUM CHLORIDE 0.9% FLUSH 10 ML FLUSH IV FLUSH PRN (18:30)
[2017-10-14 19:38] LABS: TROPONIN I LESS THAN 0.02 NG/ML (0.02-0.05)
[2017-10-14] MEDS ORDERED: ACETAMINOPHEN 325 MG TAB PO PRN ×2 (21:15→22:15)
[2017-10-14] MEDS ORDERED: AMITRIPTYLINE HCL 50 MG TAB PO SCH (22:15)
[2017-10-14] MEDS ORDERED: traZODone HCL 100 MG TAB PO SCH (22:15)
[2017-10-14 22:29] LABS: TROPONIN I LESS THAN 0.02 NG/ML (0.02-0.05)
[2017-10-14] MEDS: METOPROLOL SUCCINATE 25 MG EXTENDED RELEASE TAB PO SCH (22:33)
[2017-10-14] MEDS: SODIUM CHLORIDE 0.9% FLUSH 10 ML FLUSH IV FLUSH SCH (22:35)
[2017-10-14] MEDS ORDERED: WARFARIN SOD 7.5 MG TAB PO SCH (23:30)
[2017-10-15 03:36] VITALS: BP 118/74; PULSE 87; RESP 16; TEMP 97.8; O2SAT 96
[2017-10-15 03:45] VITALS: PULSE 78
[2017-10-15 07:00] VITALS: PULSE 69
[2017-10-15 08:17] VITALS: BP 119/75; PULSE 71; RESP 18; TEMP 97.7; O2SAT 96
--- NOTE | 2017-10-15 08:34 | HHI.HP ---
HPI Service [facility] Primary Care Physician Bryant Kimbrough MD Cardiology Dr. Katia Toribio Chief Complaint "I cannot stay hydrated" dizziness, lightheadedness, nausea vomiting then chest discomfort History of Present Illness 42-year-old man with a history of bicuspid aortic valve with aortic stenosis and regurgitation, recurrent episodes of syncope, and aortic valve replacement carried out in [place] October 2016. He has a somewhat complex history of hypertension, acute and apparent chronic renal failure (mild), anxiety- depression, and insomnia. He states that he feels he has difficulty with maintaining hydration and that he frequently becomes dehydrated. When he does he becomes dizzy lightheaded and sometimes nauseous. This current episode began with perceived to dehydration dizziness lightheadedness and then nausea and vomiting 2. After the vomiting he began to develop left chest tightness which felt like a pulling sensation inside his chest. He also felt somewhat short of breath and diaphoretic. Since his arrival in the emergency room he has been stabilized, hydrated and is now feeling reasonably well. He has under evaluation by Dr. Kimbrough for his renal situation and is scheduled to see him on follow-up November 09. With hydration his BUN and creatinine are acceptable at 12 and 1.41 but his GFR remains low at 55. Review of Systems Consitutional: COMPLAINS OF: Fatigue HEENT: COMPLAINS OF: Lightheadedness Cardiovascular: COMPLAINS OF: See HPI Gastrointestinal: COMPLAINS OF: Nausea, Vomiting Psychiatric: COMPLAINS OF: Anxiety, Depression Past Family Social History Allergies: Coded Allergies: ketorolac (Verified Allergy, Severe, Hallucinations, 10/14/17) latex (Verified Allergy, Intermediate, 10/14/17) Past Medical History Anxiety depression Hypertension Chronic renal failure Insomnia Past Surgical History AVR ([facility] valve) October 2016 Pacemaker Carpal tunnel right wrist Removal of the lipoma Reported Medications Reported Meds & Active Scripts Active Reported Amitriptyline (Amitriptyline HCl) 50 Mg Tab 50 Mg PO HS Trazodone (Trazodone HCl) 100 Mg Tablet 100 Mg PO HS Warfarin 10 Mg Tab 11.5 Mg PO MON, Coumadin (Warfarin) 7.5 Mg Tab 7.5 Mg PO WEAS Metoprolol Tartrate 25 Mg Tab 25 Mg PO BID Aspirin Children's (Aspirin) 81 Mg Chew 81 Mg CHEW DAILY Active Ordered Medications Current Medications Medications (Trade) Dose Ordered Sig/Vinnie Route Start Time Stop Time Status Last Admin (NS Flush) 2 ml UNSCH PRN IV FLUSH 10/14/17 18:30 (NS Flush) 2 ml BID IV FLUSH 10/14/17 21:00 10/14/17 22:35 (Tylenol) 650 mg Q4H PRN PO 10/14/17 21:15 (Elavil) 50 mg HS PO 10/14/17 22:15 10/14/17 22:33 (Aspirin Chew) 81 mg DAILY PO 10/15/17 09:00 (Toprol Xl) 25 mg BID PO 10/14/17 22:15 10/14/17 22:33 (Desyrel) 100 mg HS PO 10/14/17 22:15 10/14/17 22:33 (Coumadin) 7.5 mg DAILY@1600 PO 10/14/17 23:30 10/14/17 22:33 (Coumadin) 4 mg MoFr@1600 PO 10/16/17 16:00 Family History Noncontributory Social History No alcohol No tobacco Does have a history of both alcohol and opiate use but stopped in 2002 Physical Exam Vital Signs Vital Signs Date Time Temp Pulse Resp B/P (MAP) Pulse Ox O2 Delivery O2 Flow Rate FiO2 10/15/17 03:45 78 10/15/17 03:36 97.8 87 16 118/74 (89) 96 10/14/17 23:55 95 10/14/17 23:45 97.3 94 16 124/79 (94) 97 10/14/17 21:41 87 10/14/17 20:14 98.4 86 18 135/82 (99) 98 10/14/17 20:08 10/14/17 19:51 97 10/14/17 18:00 79 20 126/78 (94) 97 Room Air 10/14/17 16:21 88 19 131/88 (102) 97 Room Air 10/14/17 15:55 83 19 125/83 (97) 97 Room Air 10/14/17 15:30 89 20 97 Room Air 10/14/17 14:59 97.5 90 16 135/85 (102) 98 Physical Exam Well-nourished well-developed heavily bearded white male who had to be awakened from sleep for exam Head normocephalic atraumatic Eyes PERRLA EOMI Mouth mucous membranes moist tongue well papillated no lesions Neck supple no JVD masses nodes or bruits Chest well-healed sternotomy scar mildly diminished breath sounds but no rales wheezes or rhonchi Cardiovascular reveals a regular rhythm with loud S2 consistent with AVR. Soft 1/6 systolic murmur but no gallop or rub Abdomen soft nontender no guarding or rebound Extremities no clubbing cyanosis or edema Psychiatric memory orientation and judgment appears to be reasonably good although he does have a history of anxiety depression Laboratory Laboratory Tests Test 10/14/17 15:40 10/14/17 18:50 10/14/17 21:40 White Blood Count 7.6 Red Blood Count 4.88 Hemoglobin 14.5 Hematocrit 42.3 Mean Corpuscular Volume 86.7 Mean Corpuscular Hemoglobin 29.6 Mean Corpuscular Hemoglobin Concent 34.2 Red Cell Distribution Width 13.3 Platelet Count 251 Mean Platelet Volume 9.4 Neutrophils (%) (Auto) 62.2 Lymphocytes (%) (Auto) 27.4 Monocytes (%) (Auto) 6.9 Eosinophils (%) (Auto) 2.9 Basophils (%) (Auto) 0.6 Neutrophils # (Auto) 4.7 Lymphocytes # (Auto) 2.1 Monocytes # (Auto) 0.5 Eosinophils # (Auto) 0.2 Basophils # (Auto) 0.0 CBC Comment DIFF FINAL Differential Comment Prothrombin Time 27.6 Prothromb Time International Ratio 2.7 Activated Partial Thromboplast Time 38.1 Blood Urea Nitrogen 12 Creatinine 1.41 Random Glucose 96 Calcium Level 8.9 Magnesium Level 2.1 Sodium Level 140 Potassium Level 4.1 Chloride Level 107 Carbon Dioxide Level 24.7 Anion Gap 8 Estimat Glomerular Filtration Rate 55 Troponin I LESS THAN 0.02 LESS THAN 0.02 LESS THAN 0.02 Total Creatine Kinase 161 160 Creatine Kinase MB 1.7 1.5 Result Diagram: 10/14/17 1540 10/14/17 1540 Imaging Chest x-ray negative for acute change Abdominal x-rays negative Course Since admission the patient has been hydrated stabilized with no further symptoms and has ruled out for ACS by standard protocol. 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 Further evaluation was felt unnecessary and inappropriate at this time. He will be discharged to further follow-up with Dr. Kimbrough scheduled. I discussed with him issues with hydration and maintain maintenance of hydration in view of his mild renal failure. He is discharged with no changes in his medications Caprini VTE Risk Assessment Caprini VTE Risk Assessment: No/Low Risk (score <= 1) Caprini Risk Assessment Model Point Value = 1 Point Value = 2 Point Value = 3 Point Value = 5 Age 41-60 Minor surgery BMI > 25 kg/m2 Swollen legs Varicose veins or History of unexplained or recurrent spontaneous Oral contraceptives or hormone replacement Sepsis (< 1 month) Serious lung disease, including pneumonia (< 1 month) Abnormal pulmonary function Acute myocardial infarction Congestive heart failure (< 1 month) History of inflammatory bowel disease Medical patient at bed rest Age 61-74 Arthroscopic surgery Major open surgery (> 45 min) Laparoscopic surgery (> 45 min) Malignancy Confined to bed (> 72 hours) Immobilizing plaster cast Central venous access Age >= 75 History of VTE Family history of VTE Factor V Leiden Prothrombin [id number] Lupus anticoagulant Anticardiolipin antibodies Elevated serum homocysteine Heparin-induced thrombocytopenia Other congenital or acquired thrombophilia Stroke (< 1 month) Elective arthroplasty Hip, pelvis, or leg fracture Acute spinal cord injury (< 1 month) Prophylaxis Regimen Total Risk Factor Score Risk Level Prophylaxis Regimen 0-1 Low Early ambulation 2 Moderate Order ONE of the following: *Sequential Compression Device (SCD) *Heparin 5000 units SQ BID 3-4 Higher Order ONE of the following medications: *Heparin 5000 units SQ TID *Enoxaparin/Lovenox 40 mg SQ daily (WT < 150 kg, CrCl > 30 mL/min) *Enoxaparin/Lovenox 30 mg SQ daily (WT < 150 kg, CrCl > 10-29 mL/min) *Enoxaparin/Lovenox 30 mg SQ BID (WT < 150 kg, CrCl > 30 mL/min) AND/OR *Sequential Compression Device (SCD) 5 or more Highest Order ONE of the following medications: *Heparin 5000 units SQ TID (Preferred with Epidurals) *Enoxaparin/Lovenox 40 mg SQ daily (WT < 150 kg, CrCl > 30 mL/min) *Enoxaparin/Lovenox 30 mg SQ daily (WT < 150 kg, CrCl > 10-29 mL/min) *Enoxaparin/Lovenox 30 mg SQ BID (WT < 150 kg, CrCl > 30 mL/min) AND *Sequential Compression Device (SCD) Assessment and Plan Problem List: (1) Nausea and vomiting ICD Codes: R11.2 - Nausea with vomiting, unspecified Status: Acute Plan: Resolved with initial treatment in the emergency room (2) Atypical chest pain ICD Codes: R07.89 - Other chest pain Status: Acute Plan: Discomfort associated post vomiting which resolved with hydration and stabilization (3) Anxiety and depression ICD Codes: F41.9 - Anxiety disorder, unspecified; F32.9 - Major depressive disorder, single episode, unspecified Status: Chronic Plan: Has been under therapy in the past but needs ongoing support. Patient aware of this (4) Insomnia ICD Codes: G47.00 - Insomnia, unspecified Status: Chronic (5) Dehydration ICD Codes: E86.0 - Dehydration Status: Acute (6) Renal insufficiency ICD Codes: N28.9 - Disorder of kidney and ureter, unspecified Status: Chronic (7) Hypertension ICD Codes: I10 - Essential (primary) hypertension Status: Chronic Ben Moy MD Oct 15, 2017 08:34
--- NOTE | 2017-10-15 08:42 | HHI.DCPOC ---
Discharge Care Plan Diagnosis: (1) Nausea and vomiting (2) Dehydration (3) Atypical chest pain (4) Anxiety and depression (5) Insomnia (6) Renal insufficiency (7) Hypertension Goals to Promote Your Health * To prevent worsening of your condition and complications * To maintain your health at the optimal level Directions to Meet Your Goals Take your medications as prescribed Follow your dietary instruction Follow activity as directed Keep your appointments as scheduled Take your immunizations and boosters as scheduled If your symptoms worsen call your PCP, if no PCP go to Urgent Care Center or Emergency Room Smoking is Dangerous to Your Health. Avoid second hand smoke Call the 24-hour hour crisis hotline for domestic abuse at [facility] Manuel Oct 15, 2017 08:42
--- NOTE | 2017-10-15 08:54 | EKG ---
Date Performed: 10/14/2017 Time Performed: 21:45:23 PTAGE: 42 years EKG: ELECTRONIC VENTRICULAR PACEMAKER ABNORMAL RHYTHM ECG PREVIOUS TRACING : 10/14/2017 18.54 DOCTOR: Ben Moy Interpretating Date/Time 10/15/2017 08:53:03
--- NOTE | 2017-10-15 08:55 | EKG ---
Date Performed: 10/14/2017 Time Performed: 18:54:40 PTAGE: 42 years EKG: ELECTRONIC VENTRICULAR PACEMAKER ABNORMAL RHYTHM ECG PREVIOUS TRACING : 10/14/2017 15.06 DOCTOR: Ben Moy Interpretating Date/Time 10/15/2017 08:53:53
--- NOTE | 2017-10-15 08:56 | EKG ---
Date Performed: 10/14/2017 Time Performed: 15:06:35 PTAGE: 42 years EKG: ELECTRONIC VENTRICULAR PACEMAKER ABNORMAL RHYTHM ECG PREVIOUS TRACING : 08/27/2017 20.08 DOCTOR: Ben Moy Interpretating Date/Time 10/15/2017 08:54:46
[2017-10-15] MEDS ORDERED: ASPIRIN 81 MG CHEW TAB PO SCH (09:00)
[2017-10-15] MEDS: SODIUM CHLORIDE 0.9% FLUSH 10 ML FLUSH IV FLUSH SCH (09:00)
[2017-10-15] MEDS: METOPROLOL SUCCINATE 25 MG EXTENDED RELEASE TAB PO SCH (09:00)
[2017-10-16] MEDS ORDERED: WARFARIN SOD 4 MG TAB PO SCH (16:00)
== END 2017-10-15 11:02 | disposition home or self-care (01) ==
LOC: NEPC 14:58 → NEDA 18:27 → NEPGCP 20:05
PROVIDERS: ADMIT Internal Medicine Interventional Cardiology; ATTEND Internal Medicine Interventional Cardiology
DX: R07.89 Other chest pain (principal); Z95.2 Presence of prosthetic heart valve; Z95.0 Presence of cardiac pacemaker; F43.10 Post-traumatic stress disorder, unspecified; F32.9 Major depressive disorder, single episode, unspecified; Z79.01 Long term (current) use of anticoagulants; R61 Generalized hyperhidrosis; R11.2 Nausea with vomiting, unspecified; R06.02 Shortness of breath; I25.2 Old myocardial infarction; G43.909 Migraine, unspecified, not intractable, without status migrainosus; Z79.899 Other long term (current) drug therapy; Q23.1 Congenital insufficiency of aortic valve; I12.9 Hypertensive chronic kidney disease with stage 1 through stage 4 chronic kidney disease, or unspecified chronic kidney disease; N18.9 Chronic kidney disease, unspecified; G47.00 Insomnia, unspecified; E86.0 Dehydration; Z95.1 Presence of aortocoronary bypass graft; R94.31 Abnormal electrocardiogram [ECG] [EKG]
CPT/HCPCS: 71045; 74018; 80048; 82550; 82552; 83735; 84484; 85025; 85610; 85730; 93005; 96361; 96374; 99285; G0378; J2060; J7030

== ENCOUNTER 2017-12-06 23:16 | Observation (INO) ==
[2017-12-06 23:59] LABS: Baso # (Auto) 0.1 th/mm3 (0.0-0.2); Baso % (Auto) 1.2 % (0.0-2.0); Eos # (Auto) 0.2 th/mm3 (0.0-0.4); Eos % (Auto) 1.6 % (0.0-4.0); Hemoglobin 14.6 gm/dL (13.0-17.0); Lymph # (Auto) 2.3 th/mm3 (1.0-4.8); Lymph % (Auto) 22.2 % (9.0-44.0); Mean Corpuscular HGB Conc 34.9 % (32.0-36.0); Mean Corpuscular Hemoglobin 30.1 pg (27.0-34.0); Mean Corpuscular Volume 86.3 fL (80.0-100.0); Mean Platelet Volume 9.9 fL (7.0-11.0); Mono # (Auto) 0.6 th/mm3 (0.0-0.9); Mono % (Auto) 6.3 % (0.0-8.0); Neut # (Auto) 7.1 th/mm3 (1.8-7.7); Neut % (Auto) 68.7 % (16.0-70.0); Platelet Count 266 th/mm3 (150-450); Red Blood Count 4.86 mil/mm3 (4.50-5.90); Red Cell Distribution Width 12.9 % (11.6-17.2); White Blood Count 10.3 th/mm3 (4.0-11.0)
--- NOTE | 2017-12-07 00:08 | ED ---
HPI General Chief Complaint: Syncope Stated Complaint: Syncope/Evac Time Seen by Provider: 12/06/17 23:20 Source: patient, family, EMS and old records reviewed Mode of arrival: EMS Limitations: no limitations History of Present Illness HPI narrative: The patient is a 42-year-old male that was brought in by EMS secondary to a syncopal episode. 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 stated that he had slurred speech and shaking but his syncope only lasted a few seconds and he regained consciousness and was alert almost immediately. She stated that he was foggy for a few minutes but then he returned to baseline. He is on Coumadin because he had open heart surgery for aortic valve replacement as well as a pacemaker. He had another syncopal episode 3 weeks ago and was told that he had acute kidney injury and dehydration. and patient are concerned about his hydration. They state that he drinks adequate amounts of fluids daily and nobody can tell him why he keeps getting dehydrated. Patient denies polydipsia Related Data Home Medications Medication Instructions Recorded Confirmed aspirin 81 mg PO DAILY 12/07/17 12/07/17 metoprolol tartrate 25 mg PO BID 12/07/17 12/07/17 trazodone 100 mg PO HS 12/07/17 12/07/17 warfarin See Label Instructions .ROUTE 12/07/17 12/07/17 .COMPLEX warfarin See Label Instructions .ROUTE 12/07/17 12/07/17 .COMPLEX Allergies Allergy/AdvReac Type Severity Reaction Status Date / Time ketorolac Allergy Severe Hallucinati Verified 12/06/17 23:22 ons latex Allergy Intermediate Rash Verified 12/06/17 23:22 Review of Systems ROS: all other systems reviewed are negative Musculoskeletal Reports back pain Comments: right elbow, hip and knee pain. Neck pain. Neurologic Reports syncope Psychiatric Reports as per HPI [facility] Medical History Medical History Lipoma (Acute) Myocardial infarction (Acute) Surgical History Surgical History Aortic valve replaced (Acute) Family History Family History Other Family history of hypertension Social History Social History (Reviewed 12/07/17 @ 00:28 by LOTUS Plasencia Substance History: Past History Second Hand Smoke Exposure: No Smoking Status: Former smoker Tobacco Type: Cigarettes How Often Do You Have a Drink Containing Alcohol: Monthly or less Hx Recent Travel: No Recent Travel in [facility] within the Last 8 Weeks: No Recent Out of Country Travel within the Last 8 Weeks: No Immunization History Tetanus Immunization: <5 Years Hx Influenza Vaccine This Season: No Exam Narrative Exam Narrative: GENERAL: Alert and oriented in no distress SKIN: Focused skin assessment warm/dry. HEAD: Atraumatic. Normocephalic. EYES: Pupils equal and round. No scleral icterus. No injection or drainage. ENT: No nasal bleeding or discharge. Mucous membranes pink and moist. NECK: Trachea midline. No JVD. Tenderness to palpation over midline of the cervical spine. C-collar in place CARDIOVASCULAR: Regular rate and rhythm. No murmur appreciated. RESPIRATORY: No accessory muscle use. Clear to auscultation. Breath sounds equal bilaterally. GASTROINTESTINAL: Abdomen soft, non-tender, nondistended. Hepatic and splenic margins not palpable. MUSCULOSKELETAL: No obvious deformities. No clubbing. No cyanosis. No edema. Right elbow tender to palpation without any signs of contusion. Right hip and right knee tender to palpation without any swelling or erythema. NEUROLOGICAL: Awake and alert. No obvious cranial nerve deficits. Motor grossly within normal limits. Normal speech. No focal neurologic deficits PSYCHIATRIC: Appropriate mood and affect; insight and judgment normal. Course Reevaluation(s) Reevaluation #1: Stable vitals. Patient was informed that all imaging has been negative. very concerned at bedside not getting answers and why he keeps getting dehydrated. Patient here 3 weeks ago with syncopal episode and a dehydration with RENZO worsening from previous visits. Time: 00:33 Initial Documented Vital Signs Temperature 98.1 F 12/06/17 23:19 Pulse Rate 83 12/06/17 23:19 Respiratory Rate 18 12/06/17 23:19 Blood Pressure 130/88 12/06/17 23:19 Pulse Oximetry 97 12/06/17 23:19 Last Documented Vital Signs Temperature 98.1 F 12/07/17 19:39 Pulse Rate 70 12/07/17 19:39 Respiratory Rate 18 12/07/17 19:39 Blood Pressure 136/87 12/07/17 19:39 Pulse Oximetry 96 12/07/17 19:39 Medical Decision Making [facility] Narrative Medical decision making narrative: Patient with syncopal episode and significant cardiac history. Initial workup is unremarkable imaging within normal limits. His INR is therapeutic. Initial cardiac workup no suggestive of acute ischemia. Will be admitted for further evaluation cardiology Medical Screen Exam Complete: Yes Emergency Medical Condition: Yes Lab Data Lab results reviewed: Yes I reviewed the patient's lab results. Result diagrams: 12/06/17 23:45 12/06/17 23:45 Lab Results 12/06/17 12/06/17 12/06/17 Range/Units 23:45 23:45 23:45 WBC 10.3 (4.0-11.0) th/mm3 RBC 4.86 (4.50-5.90) mil/mm3 Hgb 14.6 (13.0-17.0) gm/dL Hct 42.0 (39.0-51.0) % MCV 86.3 (80.0-100.0) fL MCH 30.1 (27.0-34.0) pg MCHC 34.9 (32.0-36.0) % RDW 12.9 (11.6-17.2) % Plt Count 266 (150-450) th/mm3 MPV 9.9 (7.0-11.0) fL Neut % (Auto) 68.7 (16.0-70.0) % Lymph % (Auto) 22.2 (9.0-44.0) % [place] % (Auto) 6.3 (0.0-8.0) % Eos % (Auto) 1.6 (0.0-4.0) % Baso % (Auto) 1.2 (0.0-2.0) % Neut # (Auto) 7.1 (1.8-7.7) th/mm3 Lymph # (Auto) 2.3 (1.0-4.8) th/mm3 [place] # (Auto) 0.6 (0.0-0.9) th/mm3 Eos # (Auto) 0.2 (0.0-0.4) th/mm3 Baso # (Auto) 0.1 (0.0-0.2) th/mm3 WBC Differential . Differential Comment Auto diff final PT 35.5 H (9.8-11.6) sec INR 3.5 Ratio APTT 45.2 H (24.3-30.1) sec Sodium 142 (136-145) meq/L Potassium 4.3 (3.5-5.1) meq/L Chloride 106 (98-107) meq/L Carbon Dioxide 27.5 (21.0-32.0) meq/L Anion Gap 9 (5-15) meq/L BUN 14 (7-18) mg/dL Creatinine 1.66 H (0.60-1.30) mg/dL Estimated GFR 45 L (>89) mL/min Random Glucose 104 (74-106) mg/dL Calcium 8.6 (8.5-10.1) mg/dL Phosphorus (2.5-4.9) mg/dL Magnesium (1.5-2.5) mg/dL Total Bilirubin 0.6 (0.2-1.0) mg/dL AST 42 H (15-37) U/L ALT 68 (12-78) U/L Alkaline Phosphatase 73 (45-117) U/L Total Creatine Kinase 343 H (39-308) U/L CK-MB (CK-2) 2.3 (0.5-3.6) ng/mL CK-MB (CK-2) % 0.7 (0.0-4.0) % Troponin I Less than 0.02 L (0.02-0.05) ng/mL Total Protein 7.5 (6.4-8.2) g/dL Albumin 4.0 (3.4-5.0) g/dL TSH (0.358-3.740) uIU/mL 12/07/17 12/07/17 12/07/17 Range/Units 09:40 09:40 09:40 WBC (4.0-11.0) th/mm3 RBC (4.50-5.90) mil/mm3 Hgb (13.0-17.0) gm/dL Hct (39.0-51.0) % MCV (80.0-100.0) fL MCH (27.0-34.0) pg MCHC (32.0-36.0) % RDW (11.6-17.2) % Plt Count (150-450) th/mm3 MPV (7.0-11.0) fL Neut % (Auto) (16.0-70.0) % Lymph % (Auto) (9.0-44.0) % [place] % (Auto) (0.0-8.0) % Eos % (Auto) (0.0-4.0) % Baso % (Auto) (0.0-2.0) % Neut # (Auto) (1.8-7.7) th/mm3 Lymph # (Auto) (1.0-4.8) th/mm3 [place] # (Auto) (0.0-0.9) th/mm3 Eos # (Auto) (0.0-0.4) th/mm3 Baso # (Auto) (0.0-0.2) th/mm3 WBC Differential Differential Comment PT (9.8-11.6) sec INR Ratio APTT (24.3-30.1) sec Sodium (136-145) meq/L Potassium (3.5-5.1) meq/L Chloride (98-107) meq/L Carbon Dioxide (21.0-32.0) meq/L Anion Gap (5-15) meq/L BUN (7-18) mg/dL Creatinine (0.60-1.30) mg/dL Estimated GFR (>89) mL/min Random Glucose (74-106) mg/dL Calcium (8.5-10.1) mg/dL Phosphorus 2.7 (2.5-4.9) mg/dL Magnesium 1.8 (1.5-2.5) mg/dL Total Bilirubin (0.2-1.0) mg/dL AST (15-37) U/L ALT (12-78) U/L Alkaline Phosphatase (45-117) U/L Total Creatine Kinase 226 227 (39-308) U/L CK-MB (CK-2) (0.5-3.6) ng/mL CK-MB (CK-2) % (0.0-4.0) % Troponin I Less than 0.02 L Less than 0.02 L (0.02-0.05) ng/mL Total Protein (6.4-8.2) g/dL Albumin (3.4-5.0) g/dL TSH 9.400 H (0.358-3.740) uIU/mL Imaging Data Radiologist's impression: Chest X-Ray 12/06/17 23:38 CONCLUSION: Mild cardiomegaly. No acute abnormality is seen. Elbow X-Ray 12/06/17 23:38 CONCLUSION: Negative right elbow series. Hip X-Ray 12/06/17 23:38 CONCLUSION: Negative right hip series. Knee X-Ray 12/06/17 23:38 CONCLUSION: Negative right knee series. Carotid Doppler Study 12/07/17 00:00 CONCLUSION: 1. Right Internal Carotid Artery: No significant stenosis or atherosclerotic plaque is visualized. 2. Left Internal Carotid Artery: No significant stenosis or atherosclerotic plaque is visualized. Cervical Spine CT 12/07/17 00:00 CONCLUSION: Negative cervical spine CT examination. Head CT 12/07/17 00:00 CONCLUSION: Negative noncontrast CT of the head. . Lumbar Spine CT 12/07/17 00:00 CONCLUSION: Negative lumbar spine CT examination. ECG Data Attestation: I personally reviewed and interpreted this ECG as follows: Interpretation: EKG obtained at 2321 on December 06 revealed electronic ventricular paced rhythm with rate of 80 bpm no signs of acute ischemia. Discharge Plan Discharge Disposition Patient Disposition: 30 Still Patient Discharge Condition Condition: Good Discharge Details Diagnosis: Syncope, Dehydration, RENZO (acute kidney injury) Physicians Team ED Provider: Stanley Price Primary Care Provider: Bryant Kimbrough Attending Provider: Semaj Yañez Other Providers: Hugo Rodrigues Discharge Interventions Interventions: ED Discharge Assessment Last Done: 12/07/17 17:44 Vital Signs Last Done: 12/07/17 11:00 Status ED Status: Left Department Discharge Information Discharge Date/Time: 12/07/17 17:45
[2017-12-07 00:09] LABS: Activated Partial Thrombo Time 45.2 sec (24.3-30.1); INR 3.5 Ratio; Prothrombin Time 35.5 sec (9.8-11.6)
[2017-12-07 00:11] LABS: Alanine Aminotransferase 68 U/L (12-78); Anion Gap 9 meq/L (5-15); Aspartate Aminotransferase 42 U/L (15-37); Blood Urea Nitrogen 14 mg/dL (7-18); Calcium 8.6 mg/dL (8.5-10.1); Carbon Dioxide 27.5 meq/L (21.0-32.0); Chloride 106 meq/L (98-107); Glomerular Filtration Rate 45 mL/min (>89); Glucose,Random 104 mg/dL (74-106); Potassium 4.3 meq/L (3.5-5.1); Sodium 142 meq/L (136-145)
[2017-12-07 00:15] LABS: Alkaline Phosphatase 73 U/L (45-117); Creatine Kinase 343 U/L (39-308); Total Protein 7.5 g/dL (6.4-8.2)
--- NOTE | 2017-12-07 00:19 | CT ---
EXAM DATE: 12/07/2017 12:15 AM EDT AGE/SEX: 42 years / Male INDICATIONS: Patient had syncopal episode, hit back of head when he fell. CLINICAL DATA: This is the patient's initial encounter. Patient reports that signs and symptoms have been present for 1 day and indicates a pain score of 9/10. MEDICAL/SURGICAL HISTORY: Myocardial infarction. . Aortic valve replacement. RADIATION DOSE: 56.35 CTDI (mGy) COMPARISON: No prior exams available for comparison. TECHNIQUE: CT of the head without contrast. Using automated exposure control and adjustment of the mA and/or kV according to patient size, radiation dose was kept as low as reasonably achievable to ob tain optimal diagnostic quality images. DICOM format image data is available electronically for revi ew and comparison. FINDINGS: Cerebrum: The ventricles are normal for age. No evidence of midline shift, mass lesion, hemorrhage or acute infarction. No extraaxial fluid collections are seen. Posterior Fossa: The cerebellum and brainstem are intact. The 4th ventricle is midline. The cerebe llopontine angle is unremarkable. Extracranial: The visualized portion of the orbits is intact. Skull: The calvaria is intact. No evidence of skull fracture. CONCLUSION: Negative noncontrast CT of the head. . Electronically signed by: Edenilson Mathur MD 12/07/2017 12:17 AM EDT
--- NOTE | 2017-12-07 00:25 | CT ---
EXAM DATE: 12/07/2017 12:18 AM EDT AGE/SEX: 42 years / Male INDICATIONS: Neck pain post fall. CLINICAL DATA: This is the patient's initial encounter. Patient reports that signs and symptoms have been present for 1 day and indicates a pain score of 2/10. MEDICAL/SURGICAL HISTORY: Myocardial infarction. . Aortic valve replacement. RADIATION DOSE: 23.01 CTDI (mGy) COMPARISON: No prior exams available for comparison. TECHNIQUE: Contiguous axial images were obtained using helical multirow detector technique. The vol umetric data was post-processed with multiplanar reconstruction in oblique axial, sagittal, and coron al planes. Using automated exposure control and adjustment of the mA and/or kV according to patient s ize, radiation dose was kept as low as reasonably achievable to obtain optimal diagnostic quality jannette ges. DICOM format image data is available electronically for review and comparison. FINDINGS: Vertebrae: Normal vertebral body height. Alignment: Normal. No subluxation. C2-3: The bony spinal canal is normal in size. No evidence of disc bulge or herniation. The neural foramina are bilaterally patent. C3-4: The bony spinal canal is normal in size. No evidence of disc bulge or herniation. The neural foramina are bilaterally patent. C4-5: The bony spinal canal is normal in size. No evidence of disc bulge or herniation. The neural foramina are bilaterally patent. C5-6: The bony spinal canal is normal in size. No evidence of disc bulge or herniation. The neural foramina are bilaterally patent. C6-7: The bony spinal canal is normal in size. No evidence of disc bulge or herniation. The neural foramina are bilaterally patent. Mild anterior osteophytes are present. C7-T1: The bony spinal canal is normal in size. No evidence of disc bulge or herniation. The neura l foramina are bilaterally patent. CONCLUSION: Negative cervical spine CT examination. Electronically signed by: Edenilson Mathur MD 12/07/2017 12:23 AM EDT
[2017-12-07 00:27] LABS: CKMB Percent 0.7 % (0.0-4.0); Creatine Kinase MB 2.3 ng/mL (0.5-3.6)
--- NOTE | 2017-12-07 00:27 | XR ---
EXAM DATE: 12/07/2017 12:24 AM EDT AGE/SEX: 42 years / Male INDICATIONS: Right anterior and lateral knee pain post fall today CLINICAL DATA: This is the patient's initial encounter. Patient reports that signs and symptoms have been present for 1 day and indicates a pain score of 5/10. MEDICAL/SURGICAL HISTORY: None. None. COMPARISON: No prior exams available for comparison. FINDINGS: Bony structures are intact and in normal alignment. Joints are intact without dislocation or signifi cant arthropathy. Osseous density is normal. Soft tissues are unremarkable. No radiopaque foreign bodies seen. CONCLUSION: Negative right knee series. Electronically signed by: Edenilson Mathur MD 12/07/2017 12:26 AM EDT
--- NOTE | 2017-12-07 00:27 | XR ---
EXAM DATE: 12/07/2017 12:21 AM EDT AGE/SEX: 42 years / Male INDICATIONS: Trauma to chest post fall today CLINICAL DATA: This is the patient's initial encounter. Patient reports that signs and symptoms have been present for 1 day and indicates a pain score of 0/10. MEDICAL/SURGICAL HISTORY: Hypertension. Pacemaker. CABG. COMPARISON: [facility] [place], [place]. . FINDINGS: The patient is status post sternotomy. There is a prosthetic valve present. There is a pacing device seen in the left chest. The heart size is enlarged. The lungs are clear. No effusion is seen. CONCLUSION: Mild cardiomegaly. No acute abnormality is seen. Electronically signed by: Edenilson Mathur MD 12/07/2017 12:25 AM EDT
--- NOTE | 2017-12-07 00:28 | XR ---
EXAM DATE: 12/07/2017 12:22 AM EDT AGE/SEX: 42 years / Male INDICATIONS: Right elbow pain post fall today CLINICAL DATA: This is the patient's initial encounter. Patient reports that signs and symptoms have been present for 1 day and indicates a pain score of 8/10. MEDICAL/SURGICAL HISTORY: None. None. COMPARISON: No prior exams available for comparison. FINDINGS: Bony structures are intact and in normal alignment. Joints are intact without dislocation or signifi cant arthropathy. Osseous density is normal. Soft tissues are unremarkable. No radiopaque foreign bodies seen. CONCLUSION: Negative right elbow series. Electronically signed by: Edenilson Mathur MD 12/07/2017 12:26 AM EDT
--- NOTE | 2017-12-07 00:28 | XR ---
EXAM DATE: 12/07/2017 12:23 AM EDT AGE/SEX: 42 years / Male INDICATIONS: Right hip pain post fall today CLINICAL DATA: This is the patient's initial encounter. Patient reports that signs and symptoms have been present for 1 day and indicates a pain score of 7/10. MEDICAL/SURGICAL HISTORY: None. None. COMPARISON: No prior exams available for comparison. FINDINGS: Bony structures are intact and in normal alignment. Joints are intact without dislocation or signifi cant arthropathy. Osseous density is normal. Soft tissues are unremarkable. No radiopaque foreign bodies seen. CONCLUSION: Negative right hip series. Electronically signed by: Edenilson Mathur MD 12/07/2017 12:27 AM EDT
--- NOTE | 2017-12-07 00:31 | CT ---
EXAM DATE: 12/07/2017 12:23 AM EDT AGE/SEX: 42 years / Male INDICATIONS: Lower back pain post fall. CLINICAL DATA: This is the patient's initial encounter. Patient reports that signs and symptoms have been present for 1 day and indicates a pain score of 7/10. MEDICAL/SURGICAL HISTORY: Myocardial infarction. . Aortic valve replacement. RADIATION DOSE: 46.32 CTDI (mGy) ; Patient body habitus COMPARISON: No prior exams available for comparison. TECHNIQUE: Contiguous axial images were acquired with a multirow detector CT scanner without contras t. Multiplanar reconstructions in the sagittal and coronal plane were also performed. Using automate d exposure control and adjustment of the mA and/or kV according to patient size, radiation dose was k ept as low as reasonably achievable to obtain optimal diagnostic quality images. DICOM format image data is available electronically for review and comparison. FINDINGS: Vertebrae: Normal vertebral body height. 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 Alignment: Normal. No subluxation. T12-L1: The thecal sac has a normal diameter. No evidence of disc bulge or protrusion. The neural foramina are patent bilaterally. L1-L2: The thecal sac has a normal diameter. No evidence of disc bulge or protrusion. The neural f oramina are patent bilaterally. L2-L3: The thecal sac has a normal diameter. No evidence of disc bulge or protrusion. The neural f oramina are patent bilaterally. L3-L4: The thecal sac has a normal diameter. No evidence of disc bulge or protrusion. The neural f oramina are patent bilaterally. L4-L5: The thecal sac has a normal diameter. No evidence of disc bulge or protrusion. The neural f oramina are patent bilaterally. L5-S1: The thecal sac has a normal diameter. No evidence of disc bulge or protrusion. The neural f oramina are patent bilaterally. CONCLUSION: Negative lumbar spine CT examination. Electronically signed by: Edenilson Mathur MD 12/07/2017 12:29 AM EDT
[2017-12-07] MEDS ORDERED: Sod Chloride 0.9% Inj 1,000 ML IV.SIG ONE (01:33)
[2017-12-07] MEDS ORDERED: Morphine Inj 4 MG/ML Vial IV.PUSH ONE (01:38)
[2017-12-07] MEDS ORDERED: Bisacodyl 10 MG Supp RECTAL PRN (09:09)
[2017-12-07] MEDS ORDERED: Acetaminophen 325 MG Tablet PO PRN (09:09)
[2017-12-07] MEDS ORDERED: Temazepam 15 MG Capsule PO PRN (09:09)
[2017-12-07] MEDS ORDERED: Enoxaparin Inj 30 MG/0.3 ML Syringe SQ SCH (09:15)
[2017-12-07] MEDS ORDERED: Morphine Sulfate Inj 2 MG/ML Vial IV.PUSH PRN (09:38)
[2017-12-07] MEDS ORDERED: Naloxone Inj 0.4 MG/ML Vial IV.PUSH PRN (09:38)
--- NOTE | 2017-12-07 09:42 | P.HPIM ---
History of Present Illness Service: [facility] Primary Care Physician: Bryant Kimbrough MD Chief Complaint: SYNCOPAL EPISODE History of Present Illness: Patient is a 42-year-old male that was brought in by EMS after having a syncopal episode. 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 And when he bent over and stood up he had a loss of consciousness for a few seconds. states that he had some slurred speech and shaking but his syncope only lasted a few seconds and then he regained consciousness and was alert immediately. He did not have any bowel or bladder incontinence. She stated that he was foggy for a few minutes but then he returned to baseline. He is on chronic Coumadin due to a aortic valve replacement as well as history of a pacemaker. He had previously had another syncopal episode about 3 weeks ago. Was told that he had some acute kidney injury and some dehydration. His renal functions have remained about 1.5-1.6 lately. Patient is having difficulty with dehydration. Has been drinking lots of water. Denies any polydipsia. His primary director environmental is Dr. Thor Nice at the [facility] in [facility]. His cardiovascular surgeon is Dr. Tico MORTON in [facility] We will interrogate his pacemaker. We will consult cardiology here. We will get echoes and carotids. We will continue with fluids. We will check orthostasis. Patient will be followed. Will get physical therapy and occupational therapy to eval and treat Review of Systems All other systems reviewed negative except as stated in HPI [facility] - History History Provided By: Patient - Medical History Medical History: Medical History (Last Updated 12/07/17 @ 09:37 by Joao Gaspar DO) Dehydration Lipoma Myocardial infarction Renal insufficiency Syncopal episodes - Surgical History Surgical History: Surgical History (Last Updated 12/07/17 @ 09:37 by Joao Gaspar DO) Aortic valve replaced History of permanent cardiac pacemaker placement - Family History Family History: Family History (Last Updated 12/07/17 @ 09:37 by Joao Gaspar DO) Other Family history of hypertension - Tobacco History Second Hand Smoke Exposure: No Tobacco Use In Past 30 Days: No Smoking Status: Former smoker - Alcohol History How Often Do You Have a Drink Containing Alcohol: Never - Substance Use History Substance History: No History of Abuse - Travel History History of Recent Travel: No Recent Travel in the [place] Within the Last 8 Weeks: No Recent Travel Out of the Country Within the Last 8 Weeks: No - Immunization History Tetanus Immunization: <5 Years Hx Influenza Vaccine This Season: No Medications and Allergies Active Medications: Active Medications Acetaminophen (Tylenol) 650 mg PO Q4H PRN PRN Reason: Temp > 100.4 Al Hydroxide/Mg Hydroxide (Milk Of Magnesia Liq) 30 ml PO Q12H PRN PRN Reason: Mild Constipation Aspirin (Aspirin Chew) 81 mg PO DAILY FARNAZ Bisacodyl (Dulcolax Supp) 10 mg RECTAL DAILY PRN PRN Reason: SEVERE CONSITIPATION Enoxaparin Sodium (Lovenox Inj) 30 mg SQ Q24H FARNAZ Sodium Chloride (Ns Inj) 1,000 mls @ 100 mls/hr IV.CONT .Q10H FARNAZ Lactulose (Lactulose Liq) 30 ml PO DAILY PRN PRN Reason: SEVERE CONSITIPATION Metoprolol Tartrate (Lopressor) 25 mg PO BID FARNAZ Non-Formulary Medication (Warfarin) 0 mg PO .COMPLEX FARNAZ Ondansetron HCl (Zofran Inj) 4 mg IV.PUSH Q6H PRN PRN Reason: NAUSEA OR VOMITING Senna/Docusate Sodium (Yazmin-Colace) 1 tab PO BID FARNAZ Sennosides (Senokot) 17.2 mg PO Q12H PRN PRN Reason: Moderate Constipation Temazepam (Restoril) 15 mg PO HS PRN PRN Reason: INSOMNIA Trazodone HCl (Desyrel) 100 mg PO HS FARNAZ Warfarin Sodium (Coumadin) 0 mg PO .COMPLEX FARNAZ Allergies Allergy/AdvReac Type Severity Reaction Status Date / Time ketorolac Allergy Severe Hallucinati Verified 12/06/17 23:22 ons latex Allergy Intermediate Rash Verified 12/06/17 23:22 Home Medications Medication Instructions Recorded Confirmed Type aspirin 81 mg PO DAILY 12/07/17 12/07/17 History metoprolol tartrate 25 mg PO BID 12/07/17 12/07/17 History trazodone 100 mg PO HS 12/07/17 12/07/17 History warfarin See Label Instructions .ROUTE 12/07/17 12/07/17 History .COMPLEX warfarin See Label Instructions .ROUTE 12/07/17 12/07/17 History .COMPLEX Exam Vital signs: Vital Signs 12/06/17 23:19 12/07/17 03:22 12/07/17 05:29 Temperature 98.1 F Pulse Rate 83 75 70 Respiratory Rate 18 16 Blood Pressure 130/88 132/87 Pulse Oximetry 97 97 12/07/17 05:32 12/07/17 07:21 Temperature Pulse Rate 76 91 H Respiratory Rate 16 17 Blood Pressure 143/85 H 138/83 Pulse Oximetry 97 97 Intake & Output 12/06/17 12/07/17 12/07/17 18:59 06:59 18:59 Intake Total 1000 / 1000 Balance 1000 / 1000 Weight 99.79 kg Intake: IV 1000 / 1000 NS Inj 1,000 ML @ Wide Open IV. 1000 / 1000 SIG BOLUS ONE Rx#:[id number] Narrative: GENERAL: Awake alert and oriented 3 talkative and cooperative SKIN: Warm and dry. HEAD: Atraumatic. Normocephalic. EYES: Pupils equal and round. No scleral icterus. No injection or drainage. EOMI wears glasses ENT: No nasal bleeding or discharge. Mucous membranes pink and moist. Tongue is midline NECK: Trachea midline. No JVD. Supple CARDIOVASCULAR: Regular rate and rhythm. S1-S2 no S3 or S4 paced RESPIRATORY: No accessory muscle use. Clear to auscultation. Breath sounds equal bilaterally. GASTROINTESTINAL: Abdomen soft, non-tender, nondistended. Hepatic and splenic margins not palpable. MUSCULOSKELETAL: Extremities without clubbing, cyanosis, or edema. No obvious deformities. NEUROLOGICAL: Awake and alert. No obvious cranial nerve deficits. Motor grossly within normal limits. 4 out of 5 muscle strength in the arms and legs. Normal speech. PSYCHIATRIC: Appropriate mood and affect; insight and judgment normal. Results - Labs CBC & Chem 7: 12/06/17 23:45 12/06/17 23:45 Labs: Short CBC 12/06/17 Range/Units 23:45 WBC 10.3 (4.0-11.0) th/mm3 Hgb 14.6 (13.0-17.0) gm/dL Hct 42.0 (39.0-51.0) % Plt Count 266 (150-450) th/mm3 BMP 12/06/17 23:45 Sodium 142 Potassium 4.3 Chloride 106 Carbon Dioxide 27.5 BUN 14 Creatinine 1.66 H Calcium 8.6 Cardiac Enzymes 12/06/17 Range/Units 23:45 Total Creatine Kinase 343 H (39-308) U/L CK-MB (CK-2) 2.3 (0.5-3.6) ng/mL Troponin I Less than 0.02 L (0.02-0.05) ng/mL Liver Function 12/06/17 Range/Units 23:45 Total Bilirubin 0.6 (0.2-1.0) mg/dL AST 42 H (15-37) U/L ALT 68 (12-78) U/L Alkaline Phosphatase 73 (45-117) U/L Albumin 4.0 (3.4-5.0) g/dL - Imaging Impressions Chest X-Ray 12/06/17 23:38 CONCLUSION: Mild cardiomegaly. No acute abnormality is seen. Elbow X-Ray 12/06/17 23:38 CONCLUSION: Negative right elbow series. Hip X-Ray 12/06/17 23:38 CONCLUSION: Negative right hip series. Knee X-Ray 12/06/17 23:38 CONCLUSION: Negative right knee series. Cervical Spine CT 12/07/17 00:00 CONCLUSION: Negative cervical spine CT examination. Head CT 12/07/17 00:00 CONCLUSION: Negative noncontrast CT of the head. . Lumbar Spine CT 12/07/17 00:00 CONCLUSION: Negative lumbar spine CT examination. Caprini VTE Risk Assessment Caprini VTE Risk Assessment: Moderate/High Risk (score >= 2) Caprini Risk Assessment Model: Point Value = 1 Point Value = 2 Point Value = 3 Point Value = 5 Age 41-60 Minor surgery BMI > 25 kg/m2 Swollen legs Varicose veins or History of unexplained or recurrent spontaneous Oral contraceptives or hormone replacement Sepsis (< 1 month) Serious lung disease, including pneumonia (< 1 month) Abnormal pulmonary function Acute myocardial infarction Congestive heart failure (< 1 month) History of inflammatory bowel disease Medical patient at bed rest Age 61-74 Arthroscopic surgery Major open surgery (> 45 min) Laparoscopic surgery (> 45 min) Malignancy Confined to bed (> 72 hours) Immobilizing plaster cast Central venous access Age >= 75 History of VTE Family history of VTE Factor V Leiden Prothrombin [id number] Lupus anticoagulant Anticardiolipin antibodies Elevated serum homocysteine Heparin-induced thrombocytopenia Other congenital or acquired thrombophilia Stroke (< 1 month) Elective arthroplasty Hip, pelvis, or leg fracture Acute spinal cord injury (< 1 month) Prophylaxis Regimen: Total Risk Factor Score Risk Level Prophylaxis Regimen 0-1 Low Early ambulation 2 Moderate Order ONE of the following: *Sequential Compression Device (SCD) *Heparin 5000 units SQ BID 3-4 Higher Order ONE of the following medications: *Heparin 5000 units SQ TID *Enoxaparin/Lovenox 40 mg SQ daily (WT < 150 kg, CrCl > 30 mL/min) *Enoxaparin/Lovenox 30 mg SQ daily (WT < 150 kg, CrCl > 10-29 mL/min) *Enoxaparin/Lovenox 30 mg SQ BID (WT < 150 kg, CrCl > 30 mL/min) AND/OR *Sequential Compression Device (SCD) 5 or more Highest Order ONE of the following medications: *Heparin 5000 units SQ TID (Preferred with Epidurals) *Enoxaparin/Lovenox 40 mg SQ daily (WT < 150 kg, CrCl > 30 mL/min) *Enoxaparin/Lovenox 30 mg SQ daily (WT < 150 kg, CrCl > 10-29 mL/min) *Enoxaparin/Lovenox 30 mg SQ BID (WT < 150 kg, CrCl > 30 mL/min) AND *Sequential Compression Device (SCD) Assessment and Plan - Plan Syncopal episode recurrent -Possible orthostasis -Dehydration -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 -Renal insufficiency -Medication effect Hypertension continue on the metoprolol Chronic anticoagulation continue on Coumadin/warfarin daily PT/INRs INR is 3.5 Psychiatric issues continue on trazodone for sleep Status post fall with multiple bruises but no actual fractures Chronic permanent pacemaker-place pacemaker rep to review and interrogate We will get echo and carotids today and consult cardiology Continue anticoagulation with Coumadin Pain control Cardiac diet Code Status: Full code Discussed Condition With: RN and patient Discharge Planning: Pending cardiac clearance and workup for syncope
--- NOTE | 2017-12-07 09:45 | US ---
EXAM DATE: 12/07/2017 9:41 AM EDT AGE/SEX: 42 years / Male INDICATIONS: Syncope. Slurred speech. CLINICAL DATA: This is the patient's initial encounter. Patient reports that signs and symptoms have been present for 1 day and indicates a pain score of 0/10. MEDICAL/SURGICAL HISTORY: . Myocardial infarction. Anticoagulant therapy. Pacemaker. . Aortic valve replacement. Pacemaker placement. [place] [facility] [place]. . VELOCITY PARAMETERS: ICA/CCA Ratio: Right 0.9 , Left 0.9 ICA: Right 63.6 cm/sec, Left 74.1 cm/sec CCA: Right 72.4 cm/sec, Left 82.2 cm/sec ECA: Right 87.9 cm/sec, Left 77.4 cm/sec Vertebral: Right 38.4 cm/sec antegrade, Left 33.9 cm/sec antegrade FINDINGS: Right Carotid: No significant plaque is visualized.The waveforms are within normal limits. Left Carotid: No significant plaque is visualized. The waveforms are within normal limits. Other: None. CONCLUSION: 1. Right Internal Carotid Artery: No significant stenosis or atherosclerotic plaque is visualized. 2. Left Internal Carotid Artery: No significant stenosis or atherosclerotic plaque is visualized. Electronically signed by: Izaiah Sloan MD 12/07/2017 9:44 AM EDT
[2017-12-07 10:12] LABS: Magnesium 1.8 mg/dL (1.5-2.5); Phosphorus 2.7 mg/dL (2.5-4.9)
[2017-12-07 10:14] LABS: Creatine Kinase 226 U/L (39-308)
[2017-12-07 10:15] LABS: Creatine Kinase 227 U/L (39-308)
[2017-12-07] MEDS: Sod Chloride 0.9% Inj 1,000 ML IV.CONT SCH ×2 (10:18→21:43)
[2017-12-07] MEDS: Metoprolol Tartrate 25 MG Tablet PO SCH ×2 (10:18→21:43)
[2017-12-07] MEDS: Morphine Inj 4 MG/ML Vial IV.PUSH PRN ×3 (10:23→18:49)
--- NOTE | 2017-12-07 12:48 | ECG ---
Date Performed: 12/06/2017 Time Performed: 23:21:26 PTAGE: 42 years EKG: ELECTRONIC VENTRICULAR PACEMAKER ABNORMAL RHYTHM ECG Since the PREVIOUS TRACING , no significant change noted PREVIOUS TRACIN10/14/2017 21.45 DOCTOR: Elpidio Crane Interpretating Date/Time 12/07/2017 12:45:37
--- NOTE | 2017-12-07 13:00 | P.CONCA ---
<Chasity Carranza - Last Filed: 12/07/17 12:41> History of Present Illness Service: Cardiology Consult date: 12/07/17 Requesting Physician: Joao Gaspar Primary Care Provider: Bryant Kimbrough MD Family Provider: Bryant Kimbrough MD Chief Complaint: SYNCOPAL EPISODE History of Present Illness: This is a 42-year-old male who was brought into the emergency department after having a syncopal episode at home. 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 He says that he was only out for a few seconds and denies any loss of bowel or bladder control. He said that this happened 3 weeks ago and was admitted into the hospital. He said over the last 3 weeks he has been suffering from nausea and diarrhea and has been unable to maintain hydration. He has a history of aortic valve replacement in 2017 with a mechanical valve, he takes Coumadin, pacemaker placement in 2017, lipoma, myocardial infarction, renal insufficiency and syncopal episodes. He also complains of a continuous migraine and fatigue which he said he has been referred to an eligibility consultant for further evaluation. He currently denies any chest pain, pressure, palpitations, dizziness or shortness of breath. Review of Systems All other systems reviewed negative except as stated in HPI PMFSH - History History Provided By: Patient - Medical History Medical History: Medical History (Last Reviewed 12/07/17 @ 11:03 by Ronald Parker) Dehydration Lipoma Myocardial infarction Renal insufficiency Syncopal episodes - Surgical History Surgical History: Surgical History (Last Reviewed 12/07/17 @ 11:03 by Ronald Parker) Aortic valve replaced History of permanent cardiac pacemaker placement - Family History Family History: Family History (Last Updated 12/07/17 @ 09:37 by Joao Gaspar DO) Other Family history of hypertension - Tobacco History Second Hand Smoke Exposure: No Tobacco Use In Past 30 Days: No Smoking Status: Former smoker - Alcohol History How Often Do You Have a Drink Containing Alcohol: Never - Substance Use History Substance History: No History of Abuse - Travel History History of Recent Travel: No Recent Travel in the [place] Within the Last 8 Weeks: No Recent Travel Out of the Country Within the Last 8 Weeks: No - Immunization History Tetanus Immunization: <5 Years Hx Influenza Vaccine This Season: No Medications and Allergies Allergies Allergy/AdvReac Type Severity Reaction Status Date / Time ketorolac Allergy Severe Hallucinati Verified 12/06/17 23:22 ons latex Allergy Intermediate Rash Verified 12/06/17 23:22 Home Medications Medication Instructions Recorded Confirmed Type aspirin 81 mg PO DAILY 12/07/17 12/07/17 History metoprolol tartrate 25 mg PO BID 12/07/17 12/07/17 History trazodone 100 mg PO HS 12/07/17 12/07/17 History warfarin See Label Instructions .ROUTE 12/07/17 12/07/17 History .COMPLEX warfarin See Label Instructions .ROUTE 12/07/17 12/07/17 History .COMPLEX Active Medications: Active Medications Acetaminophen (Tylenol) 650 mg PO Q4H PRN PRN Reason: Temp > 100.4 Al Hydroxide/Mg Hydroxide (Milk Of Magnesia Liq) 30 ml PO Q12H PRN PRN Reason: Mild Constipation Aspirin (Aspirin Chew) 81 mg PO DAILY [facility] Last Admin: 12/07/17 10:18 Dose: 81 mg Bisacodyl (Dulcolax Supp) 10 mg RECTAL DAILY PRN PRN Reason: SEVERE CONSITIPATION Sodium Chloride (Ns Inj) 1,000 mls @ 100 mls/hr IV.CONT .Q10H [facility] Last Admin: 12/07/17 10:18 Dose: 100 mls/hr Lactulose (Lactulose Liq) 30 ml PO DAILY PRN PRN Reason: SEVERE CONSITIPATION Metoprolol Tartrate (Lopressor) 25 mg PO BID [facility] Last Admin: 12/07/17 10:18 Dose: 25 mg Morphine Sulfate (Morphine Inj) 4 mg IV.PUSH Q3H PRN PRN Reason: PAIN 6-10;IF UNABLE TO TAKE PO Last Admin: 12/07/17 10:23 Dose: 4 mg Morphine Sulfate (Morphine Inj) 2 mg IV.PUSH Q3H PRN PRN Reason: PAIN 3-5; IF UABLE TO TAKE PO Naloxone HCl (Narcan Inj) 0.4 mg IV.PUSH UNSCH PRN PRN Reason: SEE LABEL COMMENTS Ondansetron HCl (Zofran Inj) 4 mg IV.PUSH Q6H PRN PRN Reason: NAUSEA OR VOMITING Oxycodone/Acetaminophen (Percocet 10/325 Mg) 1 tab PO Q6H PRN PRN Reason: PAIN SCALE 6 TO 10 Oxycodone/Acetaminophen (Percocet 5/325 Mg) 1 tab PO Q6H PRN PRN Reason: PAIN SCALE 3 TO 5 Senna/Docusate Sodium (Yazmin-Colace) 1 tab PO BID [facility] Sennosides (Senokot) 17.2 mg PO Q12H PRN PRN Reason: Moderate Constipation Temazepam (Restoril) 15 mg PO HS PRN PRN Reason: INSOMNIA Trazodone HCl (Desyrel) 100 mg PO HS [facility] Warfarin Sodium (Coumadin) 7.5 mg PO MoFr@1600 [facility] Warfarin Sodium (Coumadin) 7.5 mg PO SuWeThSa@1600 [facility] Warfarin Sodium (Coumadin) 4 mg PO MoFr@1600 [facility] Exam Vital signs: Vital Signs 12/06/17 23:19 12/07/17 03:22 12/07/17 05:29 Temperature 98.1 F Pulse Rate 83 75 70 Respiratory Rate 18 16 Blood Pressure 130/88 132/87 Pulse Oximetry 97 97 12/07/17 05:32 12/07/17 07:21 12/07/17 12:12 Temperature Pulse Rate 76 91 H 69 Respiratory Rate 16 17 17 Blood Pressure 143/85 H 138/83 129/82 Pulse Oximetry 97 97 100 Intake & Output 12/06/17 12/07/17 12/07/17 18:59 06:59 18:59 Intake Total 1000 / 1000 Balance 1000 / 1000 Weight 99.79 kg Intake: IV 1000 / 1000 NS Inj 1,000 ML @ Wide Open IV. 1000 / 1000 SIG [facility] Rx#:[id number] Narrative: GENERAL: This is a well-nourished, well-developed patient, in no apparent distress. Patient speaks in clear complete sentences. Patient is pleasant. HEENT: Head is atraumatic and normocephalic. Neck is supple without lymphadenopathy and trachea is midline. No JVD or carotid bruits. CARDIOVASCULAR: Paced rate and rhythm without murmurs, gallops, or rubs. Mechanical click is auscultated. RESPIRATORY: Clear to auscultation. Breath sounds equal bilaterally. No wheezes , rales, or rhonchi. Chest wall is nontender. No use of accessory muscles. GASTROINTESTINAL: Abdomen is nontender, nondistended. Abdomen soft. No obvious pulsatile mass or bruit. No CVA tenderness. Strong femoral pulses bilaterally. Normal bowel sounds in all quadrants. MUSCULOSKELETAL: Patient is moving upper and lower extremities freely. No calf tenderness or edema, no Homans sign. Strong pulses in upper and lower extremities. NEUROLOGICAL: Patient is alert and oriented. Cranial nerves 2-12 are grossly intact. No focal deficits and speech is clear. SKIN: No rash and turgor is normal. Results 12/06/17 23:45 12/06/17 23:45 Cardiac Enzymes 12/06/17 12/07/17 12/07/17 Range/Units 23:45 09:40 09:40 AST 42 H (15-37) U/L CK-MB (CK-2) 2.3 (0.5-3.6) ng/mL Troponin I Less than 0.02 L Less than 0.02 L Less than 0.02 L (0.02-0.05) ng/mL Coagulation 12/06/17 Range/Units 23:45 PT 35.5 H (9.8-11.6) sec APTT 45.2 H (24.3-30.1) sec CBC 12/06/17 Range/Units 23:45 WBC 10.3 (4.0-11.0) th/mm3 RBC 4.86 (4.50-5.90) mil/mm3 Hgb 14.6 (13.0-17.0) gm/dL Hct 42.0 (39.0-51.0) % Plt Count 266 (150-450) th/mm3 Neut # (Auto) 7.1 (1.8-7.7) th/mm3 Lymph # (Auto) 2.3 (1.0-4.8) th/mm3 Tate # (Auto) 0.6 (0.0-0.9) th/mm3 Eos # (Auto) 0.2 (0.0-0.4) th/mm3 Baso # (Auto) 0.1 (0.0-0.2) th/mm3 Comprehensive Metabolic Panel 12/06/17 Range/Units 23:45 Sodium 142 (136-145) meq/L Potassium 4.3 (3.5-5.1) meq/L Chloride 106 (98-107) meq/L Carbon Dioxide 27.5 (21.0-32.0) meq/L BUN 14 (7-18) mg/dL Creatinine 1.66 H (0.60-1.30) mg/dL Calcium 8.6 (8.5-10.1) mg/dL AST 42 H (15-37) U/L ALT 68 (12-78) U/L Alkaline Phosphatase 73 (45-117) U/L Total Protein 7.5 (6.4-8.2) g/dL Albumin 4.0 (3.4-5.0) g/dL Intake and Output 12/06/17 12/07/17 12/07/17 22:59 06:59 14:59 Intake Total 1000 / 1000 Balance 1000 / 1000 Intake: IV 1000 / 1000 NS Inj 1,000 ML @ Wide Open IV. 1000 / 1000 SIG [facility] ONE Rx#:[id number] Other: Weight 99.79 kg Assessment and Plan - Assessment (1) Syncope Code(s): R55 - Syncope and collapse Status: Acute (2) Dehydration Code(s): E86.0 - Dehydration Status: Acute - Plan Serial cardiac enzymes. Obtain 2D echo for left ventricular function. Continue warfarin for anticoagulation. The patient was seen and evaluated by Dr. Rodrigues who participated in care, management and decision-making. <Hugo Rodrigues - Last Filed: 12/07/17 19:12> History of Present Illness Primary Care Provider: Bryant Kimbrough MD Family Provider: Bryant Kimbrough MD [facility] - Medical History Medical History: Medical History (Last Reviewed 12/07/17 @ 11:03 by Ronald Parker) Dehydration Lipoma Myocardial infarction Renal insufficiency Syncopal episodes - Surgical History Surgical History: Surgical History (Last Reviewed 12/07/17 @ 11:03 by Ronald Parker) Aortic valve replaced History of permanent cardiac pacemaker placement - Family History Family History: Family History (Last Updated 12/07/17 @ 09:37 by Joao Gaspar DO) Other Family history of hypertension Medications and Allergies Active Medications: Active Medications Acetaminophen (Tylenol) 650 mg PO Q4H PRN PRN Reason: Temp > 100.4 Al Hydroxide/Mg Hydroxide (Milk Of Magnesia Liq) 30 ml PO Q12H PRN PRN Reason: Mild Constipation Aspirin (Aspirin Chew) 81 mg PO DAILY [facility] Last Admin: 12/07/17 10:18 Dose: 81 mg Bisacodyl (Dulcolax Supp) 10 mg RECTAL DAILY PRN PRN Reason: SEVERE CONSITIPATION Sodium Chloride (Ns Inj) 1,000 mls @ 100 mls/hr IV.CONT .Q10H [facility] Last Admin: 12/07/17 10:18 Dose: 100 mls/hr Lactulose (Lactulose Liq) 30 ml PO DAILY PRN PRN Reason: SEVERE CONSITIPATION Metoprolol Tartrate (Lopressor) 25 mg PO BID [facility] Last Admin: 12/07/17 10:18 Dose: 25 mg Morphine Sulfate (Morphine Inj) 4 mg IV.PUSH Q3H PRN PRN Reason: PAIN 6-10;IF UNABLE TO TAKE PO Last Admin: 12/07/17 18:49 Dose: 4 mg Morphine Sulfate (Morphine Inj) 2 mg IV.PUSH Q3H PRN PRN Reason: PAIN 3-5; IF UABLE TO TAKE PO Naloxone HCl (Narcan Inj) 0.4 mg IV.PUSH UNSCH PRN PRN Reason: SEE LABEL COMMENTS Ondansetron HCl (Zofran Inj) 4 mg IV.PUSH Q6H PRN PRN Reason: NAUSEA OR VOMITING Oxycodone/Acetaminophen (Percocet 10/325 Mg) 1 tab PO Q6H PRN PRN Reason: PAIN SCALE 6 TO 10 Oxycodone/Acetaminophen (Percocet 5/325 Mg) 1 tab PO Q6H PRN PRN Reason: PAIN SCALE 3 TO 5 Senna/Docusate Sodium (Yazmin-Colace) 1 tab PO BID [facility] Sennosides (Senokot) 17.2 mg PO Q12H PRN PRN Reason: Moderate Constipation Temazepam (Restoril) 15 mg PO HS PRN PRN Reason: INSOMNIA Trazodone HCl (Desyrel) 100 mg PO HS [facility] Warfarin Sodium (Coumadin) 7.5 mg PO MoFr@1600 [facility] Warfarin Sodium (Coumadin) 7.5 mg PO SuWeThSa@1600 [facility] Last Admin: 12/07/17 17:23 Dose: 7.5 mg Warfarin Sodium (Coumadin) 4 mg PO MoFr@1600 [facility] Exam Vital signs: Vital Signs 12/06/17 23:19 12/07/17 03:22 12/07/17 05:29 Temperature 98.1 F Pulse Rate 83 75 70 Respiratory Rate 18 16 Blood Pressure 130/88 132/87 Pulse Oximetry 97 97 08/16/18 05:32 12/07/17 07:21 12/07/17 11:00 Temperature Pulse Rate 76 91 H 74 Respiratory Rate 16 17 17 Blood Pressure 143/85 H 138/83 132/71 Pulse Oximetry 97 97 98 12/07/17 12:12 12/07/17 14:57 Temperature Pulse Rate 69 71 Respiratory Rate 17 17 Blood Pressure 129/82 156/84 H Pulse Oximetry 100 Intake & Output 12/07/17 12/07/17 12/08/17 06:59 18:59 06:59 Intake Total 1000 / 1000 Balance 1000 / 1000 Weight 220 lb Intake: IV 1000 / 1000 NS Inj 1,000 ML @ Wide Open IV. 1000 / 1000 SIG [facility] Rx#:[id number] Results 12/06/17 23:45 12/06/17 23:45 Cardiac Enzymes 12/06/17 12/07/17 12/07/17 Range/Units 23:45 09:40 09:40 AST 42 H (15-37) U/L CK-MB (CK-2) 2.3 (0.5-3.6) ng/mL Troponin I Less than 0.02 L Less than 0.02 L Less than 0.02 L (0.02-0.05) ng/mL Coagulation 12/06/17 Range/Units 23:45 PT 35.5 H (9.8-11.6) sec APTT 45.2 H (24.3-30.1) sec CBC 12/06/17 Range/Units 23:45 WBC 10.3 (4.0-11.0) th/mm3 RBC 4.86 (4.50-5.90) mil/mm3 Hgb 14.6 (13.0-17.0) gm/dL Hct 42.0 (39.0-51.0) % Plt Count 266 (150-450) th/mm3 Neut # (Auto) 7.1 (1.8-7.7) th/mm3 Lymph # (Auto) 2.3 (1.0-4.8) th/mm3 Tate # (Auto) 0.6 (0.0-0.9) th/mm3 Eos # (Auto) 0.2 (0.0-0.4) th/mm3 Baso # (Auto) 0.1 (0.0-0.2) th/mm3 Comprehensive Metabolic Panel 12/06/17 Range/Units 23:45 Sodium 142 (136-145) meq/L Potassium 4.3 (3.5-5.1) meq/L Chloride 106 (98-107) meq/L Carbon Dioxide 27.5 (21.0-32.0) meq/L BUN 14 (7-18) mg/dL Creatinine 1.66 H (0.60-1.30) mg/dL Calcium 8.6 (8.5-10.1) mg/dL AST 42 H (15-37) U/L ALT 68 (12-78) U/L Alkaline Phosphatase 73 (45-117) U/L Total Protein 7.5 (6.4-8.2) g/dL Albumin 4.0 (3.4-5.0) g/dL Intake and Output 12/07/17 12/07/17 12/07/17 06:59 14:59 22:59 Intake Total 1000 / 1000 Balance 1000 / 1000 Intake: IV 1000 / 1000 NS Inj 1,000 ML @ Wide Open IV. 1000 / 1000 SIG [facility]OLUS ONE Rx#:[id number] Other: Weight 220 lb Assessment and Plan - Assessment (1) Syncope Code(s): R55 - Syncope and collapse Status: Acute (2) Dehydration Code(s): E86.0 - Dehydration Status: Acute - Attending Attestation Patient seen and examined. I reviewed and agree with the evaluation and plan as presented. Continue monitoring. Continue anticoagulation with warfarin. Check echo. Pacemaker eval shows nl device fx. 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
--- NOTE | 2017-12-07 17:49 | ECHRPT ---
Indication: Hypertensive Heart Disease CONCLUSIONS The left ventricular systolic function is low normal with an estimated ejection fraction of 50%. Normal left ventricular size. Wall thickness is normal. No regional wall motion abnormalities are present. Trace mitral valve regurgitation. The aortic valve prosthesis is normal to two-dimensional, color flow and Doppler interrogation. Mild aortic valve regurgitation. There is trace tricuspid valve regurgitation. The estimated pulmonary arterial pressure is 41 mmHg. Mild pulmonary valve regurgitation. BP: / HR: Rhythm: Sinus MEASUREMENTS (Male / Female) Normal Values Technical Quality:Good 2D ECHO LV Diastolic Diameter PLAX 5.0 cm 4.2 - 5.9 / 3.9 - 5.3 cm LV Systolic Diameter PLAX 4.0 cm IVS Diastolic Thickness 1.1 cm 0.6 - 1.0 / 0.6 - 0.9 cm LVPW Diastolic Thickness 1.1 cm 0.6 - 1.0 / 0.6 - 0.9 cm LV Relative Wall Thickness 0.4 RV Internal Dim ED PLAX 2.5 cm LVOT Diameter 2.0 cm LA Systolic Diameter LX 3.2 cm 3.0 - 4.0 / 2.7 - 3.8 cm LV Ejection Fraction MOD 4C 57.4 % LV Ejection Fraction 4C AL 59.4 % DOPPLER AV Peak Velocity 128.0 cm/s AV Peak Gradient 6.6 mmHg AV Mean Gradient 3.0 mmHg AV Velocity Time Integral 19.0 cm AI Peak Velocity 787.0 cm/s AI Peak Gradient 247.7 mmHg AI Pressure Half Time 580.0 ms LVOT Peak Velocity 100.0 cm/s LVOT Peak Gradient 4.0 mmHg LVOT Velocity Time Integral 18.4 cm AV Area Cont Eq vti 3.0 cm AV Area Cont Eq pk 2.5 cm MV Area PHT 3.9 cm Mitral E Point Velocity 76.5 cm/s Mitral A Point Velocity 83.4 cm/s Mitral E to A Ratio 0.9 LV E' Lateral Velocity 8.4 cm/s Mitral E to LV E' Lateral Ratio 9.1 LV E' Septal Velocity 7.6 cm/s Mitral E to LV E' Septal Ratio 10.1 TR Peak Velocity 278.0 cm/s TR Peak Gradient 30.9 mmHg Right Atrial Pressure 10.0 mmHg Pulmonary Artery Systolic Pressu 40.9 mmHg Right Ventricular Systolic Press 40.9 mmHg PV Peak Velocity 110.0 cm/s PV Peak Gradient 4.8 mmHg FINDINGS LEFT VENTRICLE The left ventricular systolic function is low normal with an estimated ejection fraction of 50%. Normal left ventricular size. Wall thickness is normal. No regional wall motion abnormalities are present. RIGHT VENTRICLE Normal right ventricular size and systolic function. LEFT ATRIUM The left atrial size is normal. RIGHT ATRIUM The right atrial size is normal. ATRIAL SEPTUM Normal atrial septal thickness without atrial level shunting by limited color doppler interrogation. AORTA The aortic root and proximal ascending aorta are normal in size on limited imaging. MITRAL VALVE Structurally normal mitral valve. Trace mitral valve regurgitation. AORTIC VALVE The aortic valve prosthesis is normal to two-dimensional, color flow and Doppler interrogation. Mild aortic valve regurgitation. TRICUSPID VALVE Structurally normal tricuspid valve. There is trace tricuspid valve regurgitation. The estimated pulmonary arterial pressure is 40.9 mmHg. PULMONARY VALVE Mild pulmonary valve regurgitation. PERICARDIUM No pericardial effusion. Hugo Rodrigues MD, FACC (Electronically Signed) Final Date:07 December 2017 17:48
[2017-12-07] MEDS: Senna/Docusate Sodium 8.6/50 MG Tablet PO SCH (21:43)
[2017-12-07] MEDS: traZODone 100 MG Tablet PO SCH (21:43)
[2017-12-07] MEDS: oxyCODONE/Acetaminophen 10/325 Tablet PO PRN (21:47)
[2017-12-08] MEDS: Sod Chloride 0.9% Inj 1,000 ML IV.CONT SCH ×2 (06:15→15:31)
[2017-12-08] MEDS: Senna/Docusate Sodium 8.6/50 MG Tablet PO SCH ×2 (08:17→21:26)
[2017-12-08] MEDS: Metoprolol Tartrate 25 MG Tablet PO SCH ×2 (08:17→21:20)
[2017-12-08] MEDS: oxyCODONE/Acetaminophen 10/325 Tablet PO PRN ×3 (08:23→22:44)
[2017-12-08 09:01] LABS: Baso % (Auto) 0.5 % (0.0-2.0); Eos # (Auto) 0.3 th/mm3 (0.0-0.4); Eos % (Auto) 4.3 % (0.0-4.0); Hematocrit 37.9 % (39.0-51.0); Hemoglobin 13.2 gm/dL (13.0-17.0); Lymph # (Auto) 1.8 th/mm3 (1.0-4.8); Lymph % (Auto) 30.6 % (9.0-44.0); Mean Corpuscular HGB Conc 34.9 % (32.0-36.0); Mean Corpuscular Hemoglobin 30.4 pg (27.0-34.0); Mean Corpuscular Volume 86.9 fL (80.0-100.0); Mono # (Auto) 0.4 th/mm3 (0.0-0.9); Mono % (Auto) 6.1 % (0.0-8.0); Neut # (Auto) 3.4 th/mm3 (1.8-7.7); Neut % (Auto) 58.5 % (16.0-70.0); Platelet Count 217 th/mm3 (150-450); Red Blood Count 4.36 mil/mm3 (4.50-5.90); Red Cell Distribution Width 13.1 % (11.6-17.2); White Blood Count 5.9 th/mm3 (4.0-11.0)
[2017-12-08 09:02] LABS: INR 3.3 Ratio; Prothrombin Time 33.4 sec (9.8-11.6)
[2017-12-08 09:32] LABS: Alanine Aminotransferase 54 U/L (12-78); Albumin 3.2 g/dL (3.4-5.0); Alkaline Phosphatase 62 U/L (45-117); Anion Gap 9 meq/L (5-15); Aspartate Aminotransferase 34 U/L (15-37); Blood Urea Nitrogen 16 mg/dL (7-18); Calcium 8.6 mg/dL (8.5-10.1); Carbon Dioxide 24.8 meq/L (21.0-32.0); Chloride 107 meq/L (98-107); Glomerular Filtration Rate 60 mL/min (>89); Glucose,Random 99 mg/dL (74-106); Sodium 141 meq/L (136-145); Total Protein 6.3 g/dL (6.4-8.2)
--- NOTE | 2017-12-08 12:53 | ECG ---
Date Performed: 12/07/2017 Time Performed: 09:44:22 PTAGE: 42 years EK% AV SEQUENTIAL PACING ABNORMAL RHYTHM ECG PREVIOUS TRACING : 12/06/2017 23.21 DOCTOR: Chris Daniel Interpretating Date/Time 12/08/2017 12:52:30
--- NOTE | 2017-12-08 12:53 | ECG ---
Date Performed: 12/07/2017 Time Performed: 20:31:30 PTAGE: 42 years EK% AV SEQUENTIAL PACING ABNORMAL RHYTHM ECG PREVIOUS TRACING : 12/07/2017 09.44 DOCTOR: Chris Daniel Interpretating Date/Time 12/08/2017 12:52:45
--- NOTE | 2017-12-08 12:56 | P.PNCA ---
<Chasity Carranza N - Last Filed: 12/08/17 12:50> Subjective Interval history: Patient denies any chest pain, pressure, palpitations or edema. He does complain of shortness of breath on exertion and mild dizziness when getting up. Physical Exam Vital signs: Vital Signs 12/07/17 14:57 12/07/17 19:19 12/07/17 19:39 Temperature 98.1 F Pulse Rate 71 70 Respiratory Rate 17 16 18 Blood Pressure 156/84 H 136/87 Pulse Oximetry 96 12/07/17 20:00 12/08/17 00:00 12/08/17 03:57 Temperature 98.1 F 98.1 F Pulse Rate 73 65 85 Respiratory Rate 18 18 Blood Pressure 151/78 H 119/81 Pulse Oximetry 98 95 12/08/17 04:07 12/08/17 08:17 12/08/17 09:53 Temperature 98.5 F Pulse Rate 77 70 Respiratory Rate 20 18 Blood Pressure 118/74 Pulse Oximetry 98 12/08/17 11:43 12/08/17 11:46 Temperature 97.9 F Pulse Rate 68 68 Respiratory Rate 20 20 Blood Pressure 133/93 H 133/93 H Pulse Oximetry 96 96 Intake & Output 12/07/17 12/08/17 12/08/17 18:59 06:59 18:59 Intake Total 1900 / 1900 Balance 1900 / 1900 Intake: IV 1900 / 1900 NS Inj 1,000 ML @ 100 mls/hr IV 1900 / 1900 .CONT .Q10H [facility] Rx#:[id number] Other: # Voids 3 - Constitutional no acute distress - Routine HEENT Exam Head: Present: normocephalic Eye: Present: PERRL ENT: Present: mucous membranes moist - Routine Neck Exam Present: full ROM - Routine Respiratory Exam Present: CTA bilaterally - Routine Cardiovascular Exam Present: S1, S2. Absent: murmur, gallop, rubs Comments: Mechanical aortic valve. - Routine Abdominal Exam Present: soft, normoactive bowel sounds - Routine Extremities Exam Present: full ROM, pulses intact, normal capillary refill. Absent: cyanosis, clubbing, edema - Routine Skin Exam Present: intact - Routine Neurological Exam Present: oriented X3 - Detailed Neurological Exam: Coma Scale Eye Opening: Spontaneous Verbal Response: Oriented Motor Response: Obey commands [place] Coma Scale Total: 15 - Routine Psychiatric Exam Present: normal affect Assessment and Plan - Assessment (1) Syncope Code(s): R55 - Syncope and collapse Status: Acute (2) Dehydration Code(s): E86.0 - Dehydration Status: Acute - Plan Cardiac enzyme are not trending up. 2D echo showed left ventricular function with EF 50%, trace mitral and tricuspid valve regurgitation, mild pulmonary valve regurgitation and a normal aortic valve prosthesis with mild regurgitation. Continue warfarin for anticoagulation. Nephrology evaluation in progress. Will follow patient during hospitalization. The patient was seen and evaluated by Dr. Rodrigues who participated in care, management and decision-making. <Hugo Rodrigues - Last Filed: 12/08/17 15:10> Physical Exam Vital signs: Vital Signs 12/07/17 19:19 12/07/17 19:39 12/07/17 20:00 Temperature 98.1 F Pulse Rate 70 73 Respiratory Rate 16 18 Blood Pressure 136/87 Pulse Oximetry 96 12/08/17 00:00 12/08/17 03:57 12/08/17 04:07 Temperature 98.1 F 98.1 F Pulse Rate 65 85 77 Respiratory Rate 18 18 Blood Pressure 151/78 H 119/81 Pulse Oximetry 98 95 12/08/17 08:17 12/08/17 09:53 12/08/17 11:43 Temperature 98.5 F 97.9 F Pulse Rate 70 68 Respiratory Rate 20 18 20 Blood Pressure 118/74 133/93 H Pulse Oximetry 98 96 12/08/17 11:46 Temperature Pulse Rate 68 Respiratory Rate 20 Blood Pressure 133/93 H Pulse Oximetry 96 Intake & Output 12/07/17 12/08/17 12/08/17 18:59 06:59 18:59 Intake Total 1899 / 1900 Balance 1899 / 1899 Intake: IV 1899 / 1900 NS Inj 1,000 ML @ 100 mls/hr IV 1899 .CONT .Q10H [facility] Rx#:[id number] Other: # Voids 3 Assessment and Plan - Assessment (1) Syncope Code(s): R55 - Syncope and collapse Status: Acute (2) Dehydration Code(s): E86.0 - Dehydration Status: Acute - Attending Attestation Patient seen and examined. I reviewed and agree with the evaluation and plan as presented. Echo unremarkable. Nl pacer fx. Rec. GI eval. Symptoms likely related to dehydration. 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 <Chasity Carranza - Last Filed: 12/08/17 12:50> (1) Syncope Qualifiers: Syncope type: unspecified Qualified Code(s): R55 - Syncope and collapse <Hugo Rodrigues - Last Filed: 12/08/17 15:10> (1) Syncope Qualifiers: Syncope type: unspecified Qualified Code(s): R55 - Syncope and collapse
[2017-12-08 14:26] LABS: Hemoglobin A1c 5.5 % (4.3-6.0)
--- NOTE | 2017-12-08 16:07 | P.PNIM ---
Subjective Interval history: Improvement in creatinine today. Negative syncopal workup. Patient expresses concerns due to recurrent kidney problems which she says are related to recurrent problems with dehydration. He reports polyuria. He says he was told he would see a log inspector while he is here. We discussed possibility of diabetes insipidus and workup was initiated, nephrology was consulted. We also discussed possibility of seeing an outpatient clinical engineer, inpatient endocrinology is not available here. Physical Exam Vital signs: Vital Signs 12/07/17 19:19 12/07/17 19:39 12/07/17 20:00 Temperature 98.1 F Pulse Rate 70 73 Respiratory Rate 16 18 Blood Pressure 136/87 Pulse Oximetry 96 12/08/17 00:00 12/08/17 03:57 12/08/17 04:07 Temperature 98.1 F 98.1 F Pulse Rate 65 85 77 Respiratory Rate 18 18 Blood Pressure 151/78 H 119/81 Pulse Oximetry 98 95 12/08/17 08:17 12/08/17 09:53 12/08/17 11:43 Temperature 98.5 F 97.9 F Pulse Rate 70 68 Respiratory Rate 20 18 20 Blood Pressure 118/74 133/93 H Pulse Oximetry 98 96 12/08/17 11:46 Temperature Pulse Rate 68 Respiratory Rate 20 Blood Pressure 133/93 H Pulse Oximetry 96 Intake & Output 12/07/17 12/08/17 12/08/17 18:59 06:59 18:59 Intake Total 1900 / 1900 1000 / 1000 Balance 1900 / 1900 1000 / 1000 Intake: IV 1900 / 1900 1000 / 1000 NS Inj 1,000 ML @ 100 mls/hr IV 1900 / 1900 1000 / 1000 .CONT .Q10H FARNAZ Rx#:[id number] Other: # Voids 3 Narrative: GENERAL: NAD, A&Ox3 HEAD: Normocephalic. NECK: Supple, trachea midline. No lymphadenopathy. EYES: No scleral icterus. No injection or drainage. CARDIOVASCULAR: Regular rate and rhythm without murmurs, gallops, or rubs. RESPIRATORY: Breath sounds equal bilaterally. No accessory muscle use. GASTROINTESTINAL: Abdomen soft, non-tender, nondistended. MUSCULOSKELETAL: No cyanosis, or edema. SKIN: Warm and dry. NEURO: No focal neurological deficits. Results - Labs CBC & Chem 7: 12/08/17 06:47 12/08/17 06:47 Laboratory Results - last 24 hr 12/07/17 12/08/17 12/08/17 09:40 06:44 06:47 WBC 5.9 RBC 4.36 L Hgb 13.2 Hct 37.9 L MCV 86.9 MCH 30.4 MCHC 34.9 RDW 13.1 Plt Count 217 MPV 10.0 Neut % (Auto) 58.5 Lymph % (Auto) 30.6 [place] % (Auto) 6.1 Eos % (Auto) 4.3 H Baso % (Auto) 0.5 Neut # (Auto) 3.4 Lymph # (Auto) 1.8 [place] # (Auto) 0.4 Eos # (Auto) 0.3 Baso # (Auto) 0.0 WBC Differential . Differential Comment Auto diff final PT 33.4 H INR 3.3 Sodium Potassium Chloride Carbon Dioxide Anion Gap BUN Creatinine Estimated GFR Random Glucose Calcium Total Bilirubin AST ALT Alkaline Phosphatase Total Protein Albumin Free T4 0.84 12/08/17 06:47 WBC RBC Hgb Hct MCV MCH MCHC RDW Plt Count MPV Neut % (Auto) Lymph % (Auto) [place] % (Auto) Eos % (Auto) Baso % (Auto) Neut # (Auto) Lymph # (Auto) [place] # (Auto) Eos # (Auto) Baso # (Auto) WBC Differential Differential Comment PT INR Sodium 141 Potassium 4.0 Chloride 107 Carbon Dioxide 24.8 Anion Gap 9 BUN 16 Creatinine 1.31 H Estimated GFR 60 L Random Glucose 99 Calcium 8.6 Total Bilirubin 0.3 AST 34 ALT 54 Alkaline Phosphatase 62 Total Protein 6.3 L D Albumin 3.2 L D Free T4 Assessment and Plan - Plan 42-year-old male admitted for syncope with acute kidney injury and history of polyuria Syncopal episode recurrent Workup negative including carotid ultrasound and echo As this occurred after patient was bending over to turkey picker lung treat the etiology is likely vasovagal Dehydration could be contributory, patient has chronic problems hydration and polyuria Dehydration Acute kidney injury Polyuria Current dehydration Possible diabetes insipidus Nephrology consulted Obtain osmolality of urine and plasma ADH ordered Cortisol ordered 24-hour urine study ordered Hypertension Continue baseline treatment Follow blood pressures Adjust treatments as needed continue on the metoprolol Artificial heart valve Chronic anticoagulation Pacemaker continue on Coumadin/warfarin daily PT/INRs INR is 3.5 Speicher interrogation showed no cause for syncope Insomnia trazodone for sleep DVT prophylaxis SCDs
--- NOTE | 2017-12-08 18:13 | US ---
EXAM DATE: 12/08/2017 6:04 PM EDT AGE/SEX: 42 years / Male INDICATIONS: Increased lab values. CLINICAL DATA: This is the patient's initial encounter. Patient reports that signs and symptoms have been present for 1 day and indicates a pain score of 0/10. MEDICAL/SURGICAL HISTORY: . Lipoma. Myocardial infarction. Renal insufficiency. . Aortic valv e replacement. Pacemaker placement. COMPARISON: No prior exams available for comparison. MEASUREMENTS: Right Kidney:__10.8 x 4.7 x 4.7 cm Left Kidney:__9.6 x 4.8 x 5.2 cm FINDINGS: Right Kidney: Normal echotexture and cortical thickness. No mass or hydronephrosis. Left Kidney: Normal echotexture and cortical thickness. No mass or hydronephrosis. Bladder: Within normal limits given the degree of distension. Other: The liver is increased in echogenicity characteristic of hepatic steatosis. CONCLUSION: 1. The kidneys are unremarkable in appearance with no hydronephrosis. 2. Evidence of hepatic steatosis. Electronically signed by: Luis Miguel Segal MD 12/08/2017 6:12 PM EDT
[2017-12-08 19:59] LABS: C-Reactive Protein 0.53 mg/dL (0.00-0.30)
[2017-12-08] MEDS: traZODone 100 MG Tablet PO SCH (21:20)
[2017-12-09] MEDS: Sod Chloride 0.9% Inj 1,000 ML IV.CONT SCH (02:41)
[2017-12-09 08:29] LABS: Baso % (Auto) 0.6 % (0.0-2.0); Eos # (Auto) 0.1 th/mm3 (0.0-0.4); Eos % (Auto) 2.3 % (0.0-4.0); Hematocrit 38.7 % (39.0-51.0); Hemoglobin 13.5 gm/dL (13.0-17.0); INR 3.2 Ratio; Lymph # (Auto) 1.5 th/mm3 (1.0-4.8); Lymph % (Auto) 22.2 % (9.0-44.0); Mean Corpuscular HGB Conc 34.8 % (32.0-36.0); Mean Corpuscular Hemoglobin 30.2 pg (27.0-34.0); Mean Corpuscular Volume 86.7 fL (80.0-100.0); Mean Platelet Volume 9.6 fL (7.0-11.0); Mono # (Auto) 0.3 th/mm3 (0.0-0.9); Mono % (Auto) 5.2 % (0.0-8.0); Neut # (Auto) 4.6 th/mm3 (1.8-7.7); Neut % (Auto) 69.7 % (16.0-70.0); Platelet Count 248 th/mm3 (150-450); Prothrombin Time 32.1 sec (9.8-11.6); Red Blood Count 4.46 mil/mm3 (4.50-5.90); Red Cell Distribution Width 12.8 % (11.6-17.2); White Blood Count 6.6 th/mm3 (4.0-11.0)
[2017-12-09 08:45] LABS: Alanine Aminotransferase 51 U/L (12-78); Albumin 3.4 g/dL (3.4-5.0); Anion Gap 7 meq/L (5-15); Aspartate Aminotransferase 28 U/L (15-37); Blood Urea Nitrogen 13 mg/dL (7-18); Calcium 8.7 mg/dL (8.5-10.1); Chloride 108 meq/L (98-107); Glomerular Filtration Rate 62 mL/min (>89); Glucose,Random 100 mg/dL (74-106); Potassium 4.3 meq/L (3.5-5.1); Sodium 141 meq/L (136-145)
[2017-12-09 08:47] LABS: Alkaline Phosphatase 65 U/L (45-117); Total Protein 6.8 g/dL (6.4-8.2)
[2017-12-09] MEDS: Senna/Docusate Sodium 8.6/50 MG Tablet PO SCH ×2 (10:09→20:39)
[2017-12-09] MEDS: Metoprolol Tartrate 25 MG Tablet PO SCH ×2 (10:09→20:39)
[2017-12-09] MEDS: oxyCODONE/Acetaminophen 10/325 Tablet PO PRN (10:14)
--- NOTE | 2017-12-09 11:47 | P.PNIM ---
Subjective Interval history: Workup in process. Preliminary findings show no evidence of autoimmunity, ESR is within normal limits, cortisol level within normal limits. His renal function has returned to within normal limit range and IV fluids are discontinued to monitor for any recurrence which is p.o. fluid intake. ADH in 24 hour urine studies are pending. Renal ultrasound pending. Nephrology evaluation pending. Physical Exam Vital signs: Vital Signs 12/08/17 11:46 12/08/17 16:17 12/08/17 17:23 Temperature Pulse Rate 68 Respiratory Rate 20 18 16 Blood Pressure 133/93 H 128/68 Pulse Oximetry 96 96 12/08/17 19:42 12/08/17 20:00 12/08/17 23:37 Temperature 98.7 F 97.9 F Pulse Rate 83 72 70 Respiratory Rate 20 18 Blood Pressure 146/93 H 142/83 H Pulse Oximetry 97 97 12/09/17 03:40 12/09/17 05:28 12/09/17 08:39 Temperature 98.1 F 98.6 F Pulse Rate 70 69 70 Respiratory Rate 18 20 Blood Pressure 141/88 H 148/68 H Pulse Oximetry 97 96 Intake & Output 12/08/17 12/09/17 12/09/17 18:59 06:59 18:59 Intake Total 1680 / 1680 1000 / 1000 800 / 800 Balance 1680 / 1680 1000 / 1000 800 / 800 Intake: IV 1000 / 1000 1000 / 1000 800 / 800 NS Inj 1,000 ML @ 100 mls/hr IV 1000 / 1000 1000 / 1000 800 / 800 .CONT .Q10H [facility] Rx#:[id number] Oral 680 / 680 Narrative: GENERAL: NAD, A&Ox3 HEAD: Normocephalic. NECK: Supple, trachea midline. No lymphadenopathy. EYES: No scleral icterus. No injection or drainage. CARDIOVASCULAR: Regular rate and rhythm without murmurs, gallops, or rubs. RESPIRATORY: Breath sounds equal bilaterally. No accessory muscle use. GASTROINTESTINAL: Abdomen soft, non-tender, nondistended. MUSCULOSKELETAL: No cyanosis, or edema. SKIN: Warm and dry. NEURO: No focal neurological deficits. Results - Labs CBC & Chem 7: 12/09/17 07:50 12/09/17 07:50 Laboratory Results - last 24 hr 12/08/17 12/08/17 12/08/17 06:47 18:21 18:21 WBC RBC Hgb Hct MCV MCH MCHC RDW Plt Count MPV Neut % (Auto) Lymph % (Auto) [place] % (Auto) Eos % (Auto) Baso % (Auto) Neut # (Auto) Lymph # (Auto) [place] # (Auto) Eos # (Auto) Baso # (Auto) WBC Differential Differential Comment ESR PT INR Sodium Potassium Chloride Carbon Dioxide Anion Gap BUN Creatinine Estimated GFR Random Glucose Hemoglobin A1c 5.5 Osmolality Calcium Total Bilirubin AST ALT Alkaline Phosphatase C-Reactive Protein Total Protein Albumin Cortisol Ur Specific [place] 1.006 Urine Osmolality 369 Rheumatoid Factor Scrn Rheumatoid Factor Titer 12/08/17 12/08/17 12/08/17 18:50 18:50 18:50 WBC RBC Hgb Hct MCV MCH MCHC RDW Plt Count MPV Neut % (Auto) Lymph % (Auto) [place] % (Auto) Eos % (Auto) Baso % (Auto) Neut # (Auto) Lymph # (Auto) [place] # (Auto) Eos # (Auto) Baso # (Auto) WBC Differential Differential Comment ESR 9 PT INR Sodium Potassium Chloride Carbon Dioxide Anion Gap BUN Creatinine Estimated GFR Random Glucose Hemoglobin A1c Osmolality 296 H Calcium Total Bilirubin AST ALT Alkaline Phosphatase C-Reactive Protein 0.53 H Total Protein Albumin Cortisol 6.0 Ur Specific [place] Urine Osmolality Rheumatoid Factor Scrn Negative Rheumatoid Factor Titer Not Reportable 12/09/17 12/09/17 12/09/17 07:50 07:50 07:50 WBC 6.6 RBC 4.46 L Hgb 13.5 Hct 38.7 L MCV 86.7 MCH 30.2 MCHC 34.8 RDW 12.8 Plt Count 248 MPV 9.6 Neut % (Auto) 69.7 Lymph % (Auto) 22.2 [place] % (Auto) 5.2 Eos % (Auto) 2.3 Baso % (Auto) 0.6 Neut # (Auto) 4.6 Lymph # (Auto) 1.5 [place] # (Auto) 0.3 Eos # (Auto) 0.1 Baso # (Auto) 0.0 WBC Differential . Differential Comment Auto diff final ESR PT 32.1 H INR 3.2 Sodium 141 Potassium 4.3 Chloride 108 H Carbon Dioxide 26.0 Anion Gap 7 BUN 13 Creatinine 1.27 Estimated GFR 62 L Random Glucose 100 Hemoglobin A1c Osmolality Calcium 8.7 Total Bilirubin 0.4 AST 28 ALT 51 Alkaline Phosphatase 65 C-Reactive Protein Total Protein 6.8 Albumin 3.4 Cortisol Ur Specific [place] Urine Osmolality Rheumatoid Factor Scrn Rheumatoid Factor Titer - Imaging Impressions Abdomen/Bladder Ultrasound 12/08/17 00:00 CONCLUSION: 1. The kidneys are unremarkable in appearance with no hydronephrosis. 2. Evidence of hepatic steatosis. Assessment and Plan - Plan 42-year-old male admitted for syncope with acute kidney injury and history of polyuria No new complaints from the patient today. 24-hour urine study and ADH are pending. Nephrology consult pending. Discontinue IV fluids. Follow renal function off of IV fluids and possible repeat of serum and urine osmolality tomorrow. Syncopal episode recurrent Workup negative including carotid ultrasound and echo As this occurred after patient was bending over to cloth picker lung treat the etiology is likely vasovagal Dehydration could be contributory, patient has chronic problems hydration and polyuria Dehydration Acute kidney injury Polyuria Current dehydration Possible diabetes insipidus Nephrology Following No drastic difference in osmolality of urine and plasma, while on IV Fluids ADH pending Cortisol within normal limits 24-hour urine study ordered Hypertension Continue baseline treatment Follow blood pressures Adjust treatments as needed continue on the metoprolol Artificial heart valve Chronic anticoagulation Pacemaker continue on Coumadin/warfarin daily PT/INRs INR is 3.5 Speicher interrogation showed no cause for syncope Insomnia trazodone for sleep DVT prophylaxis SCDs
--- NOTE | 2017-12-09 17:20 | MB ---
cc: Semaj Barcenas MD DATE: 12/09/2017 REASON FOR CONSULTATION: Acute renal failure with possible diabetes insipidus. HISTORY OF PRESENT ILLNESS: This is a 42-year-old male with history of CAD status post aortic valve replacement and cardiac pacemaker. The patient was admitted on 12/07/2017 with an episode of syncope at home. At that time he had picked up laundry and fell and was unconscious for several seconds. The patient had been on chronic Coumadin and came to the emergency room for evaluation. The patient was seen here, assessed in the ED. Cardiology was consulted as well. His syncope workup has been negative to date with a carotid ultrasound and cardiac echo and it is thought that the syncope was possibly vasovagal. The patient has complained of some ongoing issues of dehydration and polyuria. The patient was started on IV fluids while here. Workup for diabetes insipidus was started with a 24-hour urine collection pending and an ADH level pending. Cortisol testing was within normal levels and there were no significant differences in urine osmolality or plasma osmolarity. The patient was seen with cardiology and his pacemaker was interrogated. Regarding his renal function, the patient had an initial creatinine level of 1.6, with IV fluids this improved to a level of 1.2. At this time the patient is resting in bed comfortably, he has had no other syncope episodes here. Nephrology was consulted for further evaluation. REVIEW OF SYSTEMS: The patient denies any fevers, chills. No nausea, no vomiting. The patient had some loose stools, otherwise reports normal stools today. The patient had initial episode of syncope. Otherwise, review of systems negative. PAST MEDICAL HISTORY: Includes a history of previous episodes of dehydration, lipoma, NC, renal insufficiency apparently in the past with syncopal episode. PAST SURGICAL HISTORY: Includes aortic valve replacement and cardiac pacemaker. FAMILY HISTORY: Hypertension. SOCIAL HISTORY: Previous tobacco use. No alcohol, tobacco, or drug use currently. The patient lives at home with his family. PHYSICAL EXAMINATION: VITAL SIGNS: At time of evaluation, temperature 98.6, pulse 70, respiratory rate 20, blood pressure 148/68, pulse 94. GENERAL: Awake, alert, oriented. NECK: Soft, supple. CARDIAC: Regular rate and rhythm. PULMONARY: Clear to auscultation. ABDOMEN: Soft, nontender, nondistended. EXTREMITIES: No edema. LABORATORY DATA: Sodium 141, potassium 4.3, chloride 108, bicarbonate 26, BUN 13, creatinine 1.2 with a glucose of 100. Serum osmolality of 296. A urine osmolality of 369. ADH level is pending. Urinalysis with 1.006 specific gravity, negative glucose, ketones, blood, nitrites, urobilinogen, 1 hyaline cast seen. Urine osmolality was 369. ASSESSMENT AND PLAN: 1. Acute kidney injury. The patient had a creatinine of 1.6 on time of admission. This is improved to a level 1.2. It appears that he had volume depletion secondary to dehydration. The patient has had some loose stools recently and this may have contributed. The patient's creatinine has improved. He is off IV fluids at this time. Continue with p.o. diet and continue to monitor. Renal function is stable otherwise. 2. Questionable diabetes insipidus. The patient had symptoms of reported polyuria. He is undergoing a 24-hour urine collection. This is approximately 75% done and he has 1.5 liters in urine output at this point. A diabetes insipidus diagnosis typically would require more than 3-4 liters of urine output over 24 hours as well as a significantly lower urine osmolality, less than 250. His urine osmolality is 369 and plasma osmolality is 296. There does not appear to be any findings of diabetes insipidus at this point. An ADH level is otherwise pending and full 24-hour collection is pending. The patient may have issues secondary to possible thirst and dehydration with amitriptyline, as well as trazodone, which the patient takes for depression and trouble sleeping. He has had ongoing history of anxiety and depression. Would consider titration or stopping these medications if possible, however, continue to follow this up with the patient's primary care for management. 3. Hypertension. Blood pressure stable. Continue home medications. 4. Syncope, unclear etiology for syncope. Workup is negative to date. Cardiology is following as well. It is possible this may be vasovagal. The patient reports that he only sleeps 2-3 hours at night. This may be contributing to some of his issues as well in addition to his trazodone, amitriptyline. Continue follow up with primary team. 5. History of aortic valve replacement and myocardial infarction. Continue followup with cardiology. MD JOURDAN Pereira/perri , 03:46 PM , 03:[address] [facility]
[2017-12-09] MEDS: traZODone 100 MG Tablet PO SCH (20:39)
[2017-12-09 21:03] LABS: Creatinine 24 Hour,Urine 1.56 gm/24hr (0.63-2.50)
[2017-12-10] MEDS: Senna/Docusate Sodium 8.6/50 MG Tablet PO SCH (08:01)
[2017-12-10] MEDS: Metoprolol Tartrate 25 MG Tablet PO SCH (08:01)
[2017-12-10 08:28] LABS: Baso # (Auto) 0.1 th/mm3 (0.0-0.2); Baso % (Auto) 0.9 % (0.0-2.0); Eos # (Auto) 0.3 th/mm3 (0.0-0.4); Eos % (Auto) 4.5 % (0.0-4.0); Hematocrit 39.7 % (39.0-51.0); Hemoglobin 13.8 gm/dL (13.0-17.0); Lymph # (Auto) 1.9 th/mm3 (1.0-4.8); Lymph % (Auto) 30.4 % (9.0-44.0); Mean Corpuscular HGB Conc 34.9 % (32.0-36.0); Mean Corpuscular Hemoglobin 30.3 pg (27.0-34.0); Mean Corpuscular Volume 86.9 fL (80.0-100.0); Mean Platelet Volume 9.4 fL (7.0-11.0); Mono # (Auto) 0.4 th/mm3 (0.0-0.9); Mono % (Auto) 6.4 % (0.0-8.0); Neut # (Auto) 3.6 th/mm3 (1.8-7.7); Neut % (Auto) 57.8 % (16.0-70.0); Platelet Count 235 th/mm3 (150-450); Red Blood Count 4.57 mil/mm3 (4.50-5.90); Red Cell Distribution Width 12.9 % (11.6-17.2); White Blood Count 6.2 th/mm3 (4.0-11.0)
[2017-12-10 08:30] LABS: INR 3.5 Ratio; Prothrombin Time 35.1 sec (9.8-11.6)
[2017-12-10 08:35] VITALS: RESP 17
[2017-12-10 08:47] LABS: Alanine Aminotransferase 63 U/L (12-78); Albumin 3.6 g/dL (3.4-5.0); Anion Gap 5 meq/L (5-15); Aspartate Aminotransferase 41 U/L (15-37); Blood Urea Nitrogen 15 mg/dL (7-18); Calcium 8.8 mg/dL (8.5-10.1); Chloride 106 meq/L (98-107); Glomerular Filtration Rate 51 mL/min (>89); Glucose,Random 92 mg/dL (74-106); Sodium 139 meq/L (136-145)
[2017-12-10 08:49] LABS: Alkaline Phosphatase 64 U/L (45-117); Total Protein 7.1 g/dL (6.4-8.2)
--- NOTE | 2017-12-10 10:05 | P.PN ---
Subjective Interval history: This is a pleasant 42 y/o male who was admitted with Syncope indicated by cardiology to follow his own Cardiology in [place] his Echocardiogram was unremarkable. seen by Nephrology specialist he questioned the medicines he is taking like Trazodone and Amitriptyline both produce Neurological side effects and he takes them for sleep not for depression, may titrate then down and removed them and start to get better lifestyle and clean sleep habits. discussed with patient and follow from them about his recurrent syncope. Physical Exam Vital signs: Vital Signs 12/09/17 15:43 12/09/17 16:00 12/09/17 20:37 Temperature 98.2 F 97.9 F 97.8 F Pulse Rate 78 77 72 Respiratory Rate 20 18 18 Blood Pressure 140/80 151/84 H 141/91 H Pulse Oximetry 96 95 96 12/10/17 00:49 12/10/17 04:42 12/10/17 08:00 Temperature 97.8 F 98.0 F 98.0 F Pulse Rate 69 70 69 Respiratory Rate 18 20 17 Blood Pressure 129/85 133/76 123/70 Pulse Oximetry 97 98 96 Intake & Output 12/09/17 12/10/17 12/10/17 18:59 06:59 18:59 Intake Total 800 / 800 780 / 780 Balance 800 / 800 780 / 780 Weight 101 kg Intake: IV 800 / 800 NS Inj 1,000 ML @ 100 mls/hr IV 800 / 800 .CONT .Q10H [facility]ARNAZ Rx#:[id number] Oral 780 / 780 Other: # Voids 3 Date of Last Bowel Movement 12/07/17 Narrative: GENERAL: NAD, A&Ox3 HEAD: Normocephalic. NECK: Supple, trachea midline. No lymphadenopathy. EYES: No scleral icterus. No injection or drainage. CARDIOVASCULAR: Regular rate and rhythm without murmurs, gallops, or rubs. RESPIRATORY: Breath sounds equal bilaterally. No accessory muscle use. GASTROINTESTINAL: Abdomen soft, non-tender, nondistended. MUSCULOSKELETAL: No cyanosis, or edema. SKIN: Warm and dry. NEURO: No focal neurological deficits. Results - Labs CBC & Chem 7: 12/10/17 07:49 12/10/17 07:49 Laboratory Results - last 24 hr 12/09/17 12/09/17 12/10/17 17:30 17:30 07:49 WBC RBC Hgb Hct MCV MCH MCHC RDW Plt Count MPV Neut % (Auto) Lymph % (Auto) [place] % (Auto) Eos % (Auto) Baso % (Auto) Neut # (Auto) Lymph # (Auto) [place] # (Auto) Eos # (Auto) Baso # (Auto) WBC Differential Differential Comment PT 35.1 H INR 3.5 Sodium Potassium Chloride Carbon Dioxide Anion Gap BUN Creatinine Estimated GFR Random Glucose Calcium Total Bilirubin AST ALT Alkaline Phosphatase Total Protein Albumin Ur 24 Hour Volume [id number] Ur Creatinine 24 Hour 1.56 Ur Total Protein 24 Hr 194 H Ur Sodium 24 Hour 360 H Ur Potassium 24 Hour 78 Ur Chloride 24 Hour 388 H 12/10/17 12/10/17 07:49 07:49 WBC 6.2 RBC 4.57 Hgb 13.8 Hct 39.7 MCV 86.9 MCH 30.3 MCHC 34.9 RDW 12.9 Plt Count 235 MPV 9.4 Neut % (Auto) 57.8 Lymph % (Auto) 30.4 [place] % (Auto) 6.4 Eos % (Auto) 4.5 H Baso % (Auto) 0.9 Neut # (Auto) 3.6 Lymph # (Auto) 1.9 [place] # (Auto) 0.4 Eos # (Auto) 0.3 Baso # (Auto) 0.1 WBC Differential . Differential Comment Auto diff final PT INR Sodium 139 Potassium 4.0 Chloride 106 Carbon Dioxide 28.0 Anion Gap 5 BUN 15 Creatinine 1.51 H Estimated GFR 51 L Random Glucose 92 Calcium 8.8 Total Bilirubin 0.4 AST 41 H ALT 63 Alkaline Phosphatase 64 Total Protein 7.1 Albumin 3.6 Ur 24 Hour Volume Ur Creatinine 24 Hour Ur Total Protein 24 Hr Ur Sodium 24 Hour Ur Potassium 24 Hour Ur Chloride 24 Hour Assessment and Plan - Plan 42-year-old male admitted for syncope with acute kidney injury and history of polyuria No new complaints from the patient today. 24-hour urine study and ADH are pending. Nephrology consult pending. Discontinue IV fluids. Follow renal function off of IV fluids and possible repeat of serum and urine osmolality tomorrow. Syncopal episode recurrent Workup negative including carotid ultrasound and echo As this occurred after patient was bending over to brick picker lung treat the etiology is likely vasovagal Dehydration could be contributory, patient has chronic problems hydration and polyuria, recommended to titrate down and remove his psychotropic medicines. Dehydration Acute kidney injury Polyuria Current dehydration Possible diabetes insipidus Nephrology signed off the case no further recommendations. No drastic difference in osmolality of urine and plasma, while on IV Fluids ADH pending Cortisol within normal limits 24-hour urine study ordered Hypertension controlled. Artificial heart valve Chronic anticoagulation Pacemaker continue on Coumadin/warfarin daily PT/INRs INR is 3.5 Pacemaker interrogation showed no cause for syncope the states they have a heart group following INR as outpatient. Insomnia trazodone for sleep recommended to titrate and remove this medicines slowly but remove them to improve his symptoms. DVT prophylaxis SCDs Code Status: Full code. Discussed Condition With: Patient, and nurse Miss Danay in the room . Discharge Planning: Discharge Home now.
--- NOTE | 2017-12-10 11:40 | P.DS ---
Date of admission: 12/07/17 02:30 Primary care physician: Bryant Kimbrough MD Attending physician on discharge: Zak Gonsalves Anticipated date of discharge: 12/10/17 Brief History from admission: Patient is a 42-year-old male that was brought in by EMS after having a syncopal episode. 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 And when he bent over and stood up he had a loss of consciousness for a few seconds. states that he had some slurred speech and shaking but his syncope only lasted a few seconds and then he regained consciousness and was alert immediately. He did not have any bowel or bladder incontinence. She stated that he was foggy for a few minutes but then he returned to baseline. He is on chronic Coumadin due to a aortic valve replacement as well as history of a pacemaker. He had previously had another syncopal episode about 3 weeks ago. Was told that he had some acute kidney injury and some dehydration. His renal functions have remained about 1.5-1.6 lately. Patient is having difficulty with dehydration. Has been drinking lots of water. Denies any polydipsia. His primary storage battery inspector and tester is Dr. Thor Nice at the [facility] in [facility]. His cardiovascular surgeon is Dr. Tico MORTON in [facility] We will interrogate his pacemaker. We will consult cardiology here. We will get echoes and carotids. We will continue with fluids. We will check orthostasis. Patient will be followed. Will get physical therapy and occupational therapy to eval and treat DS: Diagnosis - Discharge Diagnosis (1) RENZO (acute kidney injury) Status: Acute (2) Dehydration Status: Acute (3) Syncope Status: Acute DS: Summary Hospital Course: This is a pleasant 42 y/o male who was admitted with Syncope indicated by cardiology to follow his own Cardiology in [place] his Echocardiogram was unremarkable. seen by Nephrology specialist he questioned the medicines he is taking like Trazodone and Amitriptyline both produce Neurological side effects and he takes them for sleep not for depression, may titrate then down and removed them and start to get better lifestyle and clean sleep habits. discussed with patient and follow from them about his recurrent syncope. Assessment and Plan - Plan 42-year-old male admitted for syncope with acute kidney injury and history of polyuria No new complaints from the patient today. 24-hour urine study and ADH are pending. Nephrology consult pending. Discontinue IV fluids. Follow renal function off of IV fluids and possible repeat of serum and urine osmolality tomorrow. 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 Dehydration Acute kidney injury mild uncontrol continue good hydration at home and titrate to remove Trazodone and Amitriptyline Polyuria Current dehydration Possible diabetes insipidus Nephrology signed off the case no further recommendations. No drastic difference in osmolality of urine and plasma, while on IV Fluids ADH pending Cortisol within normal limits 24-hour urine study ordered Hypertension controlled. Artificial heart valve Chronic anticoagulation Pacemaker continue on Coumadin/warfarin daily PT/INRs INR is 3.5 Pacemaker interrogation showed no cause for syncope the states they have a heart group following INR as outpatient. Insomnia trazodone for sleep recommended to titrate and remove this medicines slowly but remove them to improve his symptoms. DVT prophylaxis SCDs Code Status: Full code. Discussed Condition With: Patient, and nurse Miss Jon in the room . Discharge Planning: Discharge Home now. - Time Spent with Patient Total time spent providing and/or coordinating discharge services: Less than 30 minutes - Quality: VTE Deep Vein Thrombosis/Pulmonary Embolism Present on Admission: No Exam Vital signs: Vital Signs 12/09/17 15:43 12/09/17 16:00 12/09/17 20:37 Temperature 98.2 F 97.9 F 97.8 F Pulse Rate 78 77 72 Respiratory Rate 20 18 18 Blood Pressure 140/80 151/84 H 141/91 H Pulse Oximetry 96 95 96 12/10/17 00:49 12/10/17 04:42 12/10/17 08:00 Temperature 97.8 F 98.0 F 98.0 F Pulse Rate 69 70 69 Respiratory Rate 18 20 17 Blood Pressure 129/85 133/76 123/70 Pulse Oximetry 97 98 96 Intake & Output 12/09/17 12/10/17 12/10/17 18:59 06:59 18:59 Intake Total 800 / 800 780 / 780 Balance 800 / 800 780 / 780 Weight 101 kg Intake: IV 800 / 800 NS Inj 1,000 ML @ 100 mls/hr IV 800 / 800 .CONT .Q10H FARNAZ Rx#:[id number] Oral 780 / 780 Other: # Voids 3 Date of Last Bowel Movement 12/07/17 Narrative: GENERAL: NAD, A&Ox3 HEAD: Normocephalic. NECK: Supple, trachea midline. No lymphadenopathy. EYES: No scleral icterus. No injection or drainage. CARDIOVASCULAR: Regular rate and rhythm without murmurs, gallops, or rubs. RESPIRATORY: Breath sounds equal bilaterally. No accessory muscle use. GASTROINTESTINAL: Abdomen soft, non-tender, nondistended. MUSCULOSKELETAL: No cyanosis, or edema. SKIN: Warm and dry. NEURO: No focal neurological deficits. Results Procedures completed during hospitalization: None Labs on day of discharge: Labs from last 24 hours 12/10/17 12/10/17 12/10/17 07:49 07:49 07:49 WBC 6.2 RBC 4.57 Hgb 13.8 Hct 39.7 MCV 86.9 MCH 30.3 MCHC 34.9 RDW 12.9 Plt Count 235 MPV 9.4 Neut % (Auto) 57.8 Lymph % (Auto) 30.4 [place] % (Auto) 6.4 Eos % (Auto) 4.5 H Baso % (Auto) 0.9 Neut # (Auto) 3.6 Lymph # (Auto) 1.9 [place] # (Auto) 0.4 Eos # (Auto) 0.3 Baso # (Auto) 0.1 WBC Differential . Differential Comment Auto diff final PT 35.1 H INR 3.5 Sodium 139 Potassium 4.0 Chloride 106 Carbon Dioxide 28.0 Anion Gap 5 BUN 15 Creatinine 1.51 H Estimated GFR 51 L Random Glucose 92 Calcium 8.8 Total Bilirubin 0.4 AST 41 H ALT 63 Alkaline Phosphatase 64 Total Protein 7.1 Albumin 3.6 Ur 24 Hour Volume Ur Creatinine 24 Hour Ur Total Protein 24 Hr Ur Sodium 24 Hour Ur Potassium 24 Hour Ur Chloride 24 Hour Urine Aldosterone 12/09/17 12/09/17 12/08/17 17:30 17:30 17:30 WBC RBC Hgb Hct MCV MCH MCHC RDW Plt Count MPV Neut % (Auto) Lymph % (Auto) [place] % (Auto) Eos % (Auto) Baso % (Auto) Neut # (Auto) Lymph # (Auto) [place] # (Auto) Eos # (Auto) Baso # (Auto) WBC Differential Differential Comment PT INR Sodium Potassium Chloride Carbon Dioxide Anion Gap BUN Creatinine Estimated GFR Random Glucose Calcium Total Bilirubin AST ALT Alkaline Phosphatase Total Protein Albumin Ur 24 Hour Volume [id number] [id number] Ur Creatinine 24 Hour 1.56 Ur Total Protein 24 Hr 194 H Ur Sodium 24 Hour 360 H Ur Potassium 24 Hour 78 Ur Chloride 24 Hour 388 H Urine Aldosterone Pending - Impressions ITS Impressions Chest X-Ray 12/06/17 23:38 CONCLUSION: Mild cardiomegaly. No acute abnormality is seen. Elbow X-Ray 12/06/17 23:38 CONCLUSION: Negative right elbow series. Hip X-Ray 12/06/17 23:38 CONCLUSION: Negative right hip series. Knee X-Ray 12/06/17 23:38 CONCLUSION: Negative right knee series. Carotid Doppler Study 12/07/17 00:00 CONCLUSION: 1. Right Internal Carotid Artery: No significant stenosis or atherosclerotic plaque is visualized. 2. Left Internal Carotid Artery: No significant stenosis or atherosclerotic plaque is visualized. Cervical Spine CT 12/07/17 00:00 CONCLUSION: Negative cervical spine CT examination. Head CT 12/07/17 00:00 CONCLUSION: Negative noncontrast CT of the head. . Lumbar Spine CT 12/07/17 00:00 CONCLUSION: Negative lumbar spine CT examination. Abdomen/Bladder Ultrasound 12/08/17 00:00 CONCLUSION: 1. The kidneys are unremarkable in appearance with no hydronephrosis. 2. Evidence of hepatic steatosis. Discharge Plan - Discharge Disposition Patient Disposition: 01 Discharge Home - Discharge Condition Condition: Good - Discharge Order Discharge Orders: Discharge Order (Routine); Ordered 12/10/17 Ordered By: Zak Gonsalves - Discharge Details Anticipated Discharge Date: 12/10/17 Discharge Comment: Discussed with patient about the medicines like Trazodone produce very commonly drowsiness, dizziness, lightheadedness and headache. try to remove them titrated by PCP. - Physicians Team Primary Care Provider: Bryant Kimbrough Attending Provider: Zak Gonsalves Other Providers: Hugo Rodrigues MD ; Semaj Barcenas MD
[2017-12-10 12:45] VITALS: BP 137/85; PULSE 75; TEMP 97.8; O2SAT 97
== END 2017-12-10 17:40 | disposition home or self-care (01) ==
LOC: N07 23:16 → NEDA 23:16 → NEPC 23:16 → NEDA 12-07 04:31 → NEDH 12-07 09:48 → NEPGCP 12-07 17:39 → N07 12-09 17:11
PROVIDERS: ADMIT Internal Medicine; ATTEND Internal Medicine